=== PATIENT | female | born 1945 | race Caucasian/White ===

== ENCOUNTER → 2017-12-08 12:59 | Outpatient (CLI) | payer MEDICARE, OTHER, SELFPAY ==
--- NOTE | 2017-12-08 13:03 | US_ITS ---
STUDY: THYROID ULTRASOUND REASON FOR EXAM: Female, 72 years old. Enlarged gland. TECHNIQUE: Ultrasound evaluation of the thyroid was performed with real-time and static marvin-scale imaging. COMPARISON: None. FINDINGS: RIGHT LOBE: The right lobe of the thyroid gland measures 4.5 x 1.5 x 1.5 cm. There is a homogeneous echotexture. There is a mildly hypoechoic solid nodule in the upper pole measuring 3 x 2 x 2 mm. LEFT LOBE: The left lobe of the thyroid gland measures 4.2 x 1.4 x 1.3 cm. There is a homogeneous echotexture. There are no demonstrated solid, cystic or complex lesions. ISTHMUS: The isthmus measures 2.0 mm. . The regional lymph nodes are normal. US/Thyroid IMPRESSION: A 3 mm right thyroid nodule. Suggest follow-up exam to assess stability. Otherwise, normal study. Electronically Signed: Delvis Rivera MD at 3:28 EST , Service support ,
--- NOTE | 2017-12-08 13:03 | HPBI_ITS ---
MAMMOGRAPHY - BILATERAL SCREENING REASON FOR EXAM: Female, 72 years old. Routine annual screening examination. PERTINENT HISTORY: Grandmother with breast cancer. TECHNIQUE: Digital bilateral breast criselda (3D mammographic acquisition) in the CC and MLO projections. 2-D mediolateral oblique (MLO) and craniocaudad (CC) views of both breasts were obtained. CAD: Full Field Digital Mammography with Computer Added Detection was performed. COMPARISON: Comparison is made with prior study dated November 19, 2016 and February 01, 2012. FINDINGS: Breast Composition: There are scattered areas of fibroglandular density. There are no dominant masses or suspicious calcifications. Stable benign-appearing bilateral axillary lymph nodes. No other significant abnormalities are identified. There has been no significant change since the prior study. HPBI/SCREENING MAMM (CAD), BILAT IMPRESSION: Stable bilateral screening mammogram. Yearly follow-up mammogram recommended. (A) ASSESSMENT CATEGORY: BIRADS Category 1: Negative. A letter regarding these results will be sent to the patient by the facility within 30 days. Approximately 10% of breast cancers are not detected by mammography. A normal mammogram should not delay biopsy of a clinically suspicious abnormality. [id number] Electronically Signed: Kevin Pugh MD at 14:05 EST Tel [phone], Service support ,
== END ==
PROVIDERS: Family Provider Internal Medicine; PCP Internal Medicine; Visit Provider Internal Medicine
DX: Z12.31 Encounter for screening mammogram for malignant neoplasm of breast (principal); E04.9 Nontoxic goiter, unspecified
CPT/HCPCS: 76536; 77063; 77067

== ENCOUNTER → 2018-09-21 10:40 | Outpatient (CLI) | payer MEDICARE, OTHER, SELFPAY ==
--- NOTE | 2018-09-21 10:47 | CDU_ITS ---
Reason For Study: Carotid stenosis Rt. Velocities/BP Lt. Velocities/BP Prox CCA 85.6/17.6 cm/sec. Prox CCA 87.9/19.9 cm/sec. Mid CCA 97.3/23.5 cm/sec. Mid CCA 89.1/27.0 cm/sec. Dist CCA 78.0/15.8 cm/sec. Dist CCA 89.7/24.0 cm/sec. Prox ICA 77.3/21.8 cm/sec. Prox ICA 77.4/20.0 cm/sec. Mid ICA 70.7/19.6 cm/sec. Mid ICA 112.0/29.9 cm/sec. Dist ICA 88.8/21.2 cm/sec. Dist ICA 97.4/23.6 cm/sec. Rt. ICA/CCA = .91. Lt. ICA/CCA = 1.3. Prox ECA 134.0/14.9 cm/sec. Prox ECA 118.0/15.7 cm/sec. Rt. Vert. 69.1/14.9 cm/sec. Lt. Vert. 48.1/8.2 cm/sec. Right Extracranial There is intimal thickening but no significant atherosclerotic plaque noted in the right common carotid artery. There is heterogeneous, irregular atherosclerotic plaque noted in the right internal carotid artery. There is no significant atherosclerotic plaque noted in the right external carotid artery. Antegrade flow is noted in the right vertebral artery. Left Extracranial There is intimal thickening but no significant atherosclerotic plaque noted in the left common carotid artery. There is heterogeneous, irregular atherosclerotic plaque noted in the left internal carotid artery. There is intimal thickening but no significant atherosclerotic plaque noted in the left external carotid artery. Antegrade flow is noted in the left vertebral artery. Procedure Carotid Duplex [id number]. Exam performed in department. Interpretation Summary Mild (<50%) stenosis right extracranial internal carotid. Mild (<50%) stenosis left extracranial internal carotid. Flow within the vertebral arteries is antegrade bilaterally. Ordering Physician: Monse Silverman Referring Physician: Monse Silverman Performed By: Maria Luisa Waller RVT
--- OUTSIDE RECORDS SUMMARY | 2018-12-23 14:49 | XMS RPT_ITS ---
:1945 Author Organization [facility] Care Team Providers Name Role Phone Fast DO, Monse A Attending Unavailable Fast DO, Monse A Referring Unavailable Fast DO, Monse A Consulting Unavailable Fast, Monse Attending Unavailable Fast, Monse Referring Unavailable Fast, Monse Primary Care Unavailable Fast, Monse Attending Unavailable Fast, Monse Referring Unavailable Fast, Monse Primary Care Unavailable PROBLEMS PROBLEMS DATE TYPE CONDITION / CODE ATTENDING STATUS SOURCE 12/09/2017 Unknown Z12.31 - Fast, Monse Active [place] Encounter for [facility] screening Hospital mammogram for Repository malignant neoplasm of breast / Z12.31(ICD-10) 12/09/2017 Unknown E04.9 - Nontoxic Fast, Monse Active [facility] goiter, Community unspecified / Hospital E04.9(ICD-10) Repository PROCEDURES PROCEDURES No Procedure Records FoundRESULTS RESULTS CAROTID DUPLEX Observed: 10/19/2018 Status: F Source: MOBILE ULTRASOUND 11:51 AM [facility] REPOSITORY [facility] Cardiovascular Services [address] [place] [address] Carotid Duplex Ultrasound 09/21/18 1051 MR#: [id number] Acct: [id number] Name: MIKE CHAVEZ Rep #: [id number] : 1945 72 From: Denilson Warren MD Attending Dr: Monse Silverman DO Status: REG CLI Ordering Dr: Monse Silverman DO Date: 09/21/18 Location: [facility] Sex: F C Admitted: Reason For Study: Carotid stenosis Rt. Velocities/BP Lt. Velocities/BP Prox CCA 85.6/17.6 cm/sec. Prox CCA 87.9/19.9 cm/sec. Mid CCA 97.3/23.5 cm/sec. Mid CCA 89.1/27.0 cm/sec. Dist CCA 78.0/15.8 cm/sec. Dist CCA 89.7/24.0 cm/sec. Prox ICA 77.3/21.8 cm/sec. Prox ICA 77.4/20.0 cm/sec. Mid ICA 70.7/19.6 cm/sec. Mid ICA 112.0/29.9 cm/sec. Dist ICA 88.8/21.2 cm/sec. Dist ICA 97.4/23.6 cm/sec. Rt. ICA/CCA = .91. Lt. ICA/CCA = 1.3. Prox ECA 134.0/14.9 cm/sec. Prox ECA 118.0/15.7 cm/sec. Rt. Vert. 69.1/14.9 cm/sec. Lt. Vert. 48.1/8.2 cm/sec. Right Extracranial There is intimal thickening but no significant atherosclerotic plaque noted in the right common carotid artery. There is heterogeneous, irregular atherosclerotic plaque noted in the right internal carotid artery. There is no significant atherosclerotic plaque noted in the right external carotid artery. Antegrade flow is noted in the right vertebral artery. Left Extracranial There is intimal thickening but no significant atherosclerotic plaque noted in the left common carotid artery. There is heterogeneous, irregular atherosclerotic plaque noted in the left internal carotid artery. There is intimal thickening but no significant atherosclerotic plaque noted in the left external carotid artery. Antegrade flow is noted in the left vertebral artery. Procedure Carotid Duplex [id number]. Exam performed in department. Interpretation Summary Mild (<50%) stenosis right extracranial internal carotid. Mild (<50%) stenosis left extracranial internal carotid. Flow within the vertebral arteries is antegrade bilaterally. Ordering Physician: Monse Silverman Referring Physician: Monse Silverman Performed By: Maria Luisa Waller RVT 10/19/18 1150 Date Denilson Warren MD CC: Monse Silverman DO Date Dictated: 09/21/18 1051 Date Transcribed: 10/19/18 1150 Human Resources Analyst: Signed SCREENING MAMM (CAD), Observed: 12/08/2017 Status: F Source: MOBILE BIL 1:04 PM [facility] REPOSITORY [facility] Imaging Services [address] [place] [id number] SCREENING MAMM (CAD), BILAT MR#: [id number] Acct: [id number] Name: CHAVEZ,KAY Elia Rep #: [id number] : 1945 F 72 From: Kevin Pugh MD PCP: Monse Silverman DO Status: REG CLI Study: SCREENING MAMM (CAD), BILAT Date of Exam: 12/08/17 Exam# [id number] Ordering Dr: Monse Silverman DO MAMMOGRAPHY - BILATERAL SCREENING REASON FOR EXAM: Female, 72 years old. Routine annual screening examination. PERTINENT HISTORY: Grandmother with breast cancer. TECHNIQUE: Digital bilateral breast criselda (3D mammographic acquisition) in the CC and MLO projections. 2-D mediolateral oblique (MLO) and craniocaudad (CC) views of both breasts were obtained. CAD: Full Field Digital Mammography with Computer Added Detection was performed. COMPARISON: Comparison is made with prior study dated November 19, 2016 and February 01, 2012. FINDINGS: Breast Composition: There are scattered areas of fibroglandular density. There are no dominant masses or suspicious calcifications. Stable benign-appearing bilateral axillary lymph nodes. No other significant abnormalities are identified. There has been no significant change since the prior study. HPBI/SCREENING MAMM (CAD), BILAT IMPRESSION: Stable bilateral screening mammogram. Yearly follow-up mammogram recommended. (A) ASSESSMENT CATEGORY: BIRADS Category 1: Negative. A letter regarding these results will be sent to the patient by the facility within 30 days. Approximately 10% of breast cancers are not detected by mammography. A normal mammogram should not delay biopsy of a clinically suspicious abnormality. [id number] Electronically Signed: Kevin Pugh MD at 14:05 EST Tel [phone], Service support , CC: Monse Silverman DO Human Resources Analyst: Signed THYROID Observed: 12/08/2017 Status: F Source: MOBILE 1:04 PM [facility] REPOSITORY [facility] Imaging Services [address] [place], [place] [id number] Thyroid MR#: [id number] Acct: [id number] Name: MIKE CHAVEZ Rep #: [id number] : 1945 F 72 From: Delvis Rivera MD PCP: Monse Silverman DO Status: REG CLI Study: Thyroid Date of Exam: 12/08/17 Exam# [id number] Ordering Dr: Monse Silverman DO STUDY: THYROID ULTRASOUND REASON FOR EXAM: Female, 72 years old. Enlarged gland. TECHNIQUE: Ultrasound evaluation of the thyroid was performed with real-time and static marvin-scale imaging. COMPARISON: None. FINDINGS: RIGHT LOBE: The right lobe of the thyroid gland measures 4.5 x 1.5 x 1.5 cm. There is a homogeneous echotexture. There is a mildly hypoechoic solid nodule in the upper pole measuring 3 x 2 x 2 mm. LEFT LOBE: The left lobe of the thyroid gland measures 4.2 x 1.4 x 1.3 cm. There is a homogeneous echotexture. There are no demonstrated solid, cystic or complex lesions. ISTHMUS: The isthmus measures 2.0 mm. . The regional lymph nodes are normal. US/Thyroid IMPRESSION: A 3 mm right thyroid nodule. Suggest follow-up exam to assess stability. Otherwise, normal study. Electronically Signed: Delvis Rivera MD at 3:28 EST , Service support , CC: Monse Silverman DO Human Resources Analyst: Signed ALLERGIES ALLERGIES No Allergies Records FoundENCOUNTERS ENCOUNTERS ADMIT/DISCHARGE ACCOUNT ADMITTING ENCOUNTER LOCATION SOURCE NUMBER CLASS 09/21/2018 [id number] Ambulatory [place] Tony 0 [facility] ing:[facility] Repository 09/13/2018 [id number] Ambulatory Building:[facility] [place] Practices Repository 12/08/2017 [id number] Ambulatory [place] 5 [facility] ing:BI Repository PAYERS PAYERS ENCOUNTER GUARANTOR PAYER SUBSCRIBER SOURCE 09/21/2018 GORDY Gordon Primary MIKE R Tony [id number] Insurance:HUMANA MCFADDENDOB: Community [place] MEDICARE PPOPolicy [id number] Hospital WAYUnit Number: Repository [address], [place] [id number] [id number]: (330) Date:7734-75-73JV [phone] () [address], [place] [address]XF: 09/21/2018 Secondary GORDY Hillman Insurance:[facility] MCFADDENDOB: [facility] [id number] Hospital Number: Repository [id number] Date:1586-57-74[address], [place] [address]QG: 09/21/2018 Tertiary NOT GIVENUNK Tony Insurance:SELF PAY [facility] Number: Effective Repository Date:2018-09-13 09/13/2018 MIKE R Primary MIKE R [facility] Practices MCFADDENDOB: Insurance:Hum//Medicar MCFADDENDOB: Repository [id number] e Adv PlanPoly [id number] [place] Number: 2 [facility] [id number] [address], [place] Date:6698-14-80Lzub [place], [place] [address]Oho: ([phone]) Name:[address] [address]Xpr: [address] [place] [address] [phone] (HP) (HP)Tel: [phone]: ([phone] 09/13/2018 Secondary Gordy W [facility]IP Practices Insurance:United McFaddenDOB: Repository [facility] [id number] Number: 2 [place] [id number] [address] [place] Date:7330-28-65Ytut [address]Ehn: ([phone]) Name:[facility] [address] [address]Vtog [phone] (HP) [place], [place] [address]TZ: 12/08/2017 Gordy Gordon Primary MIKE R [place] [id number] Insurance:HUMANA MCFADDENDOB: Community [place] MEDICARE PPOPolicy [id number] Number: [place]ository [address] [id number] [id number]: (330) Date:1958-93-31[phone] (HP) [address] [place] [place] [address]KE: 12/08/2017 Secondary Gordy W Tony Insurance:[facility] McfaddenDOB: Community CARE [address] [place] [address] [id number] Hospital Number: Repository [id number] Date:8101-81-80[address], [place] [address]DQ: 12/08/2017 Tertiary NOT GIVENUNK Tony Insurance:SELF PAY [facility] Number: Effective Repository Date:2017-11-17
--- OUTSIDE RECORDS SUMMARY | 2018-12-23 14:49 | XMS RPT_ITS | Continuity of Care Document ---
:1945 Author Organization [facility] Address [facility] [address] [place] [address] Phone Care Team Providers Name Role Phone Monse Silverman DO Unavailable Mayra GUADALUPE, Dean Lowery Unavailable Mervin Francisco Unavailable Natty Mayen Unavailable Unavailable Liane Zhou Unavailable Unavailable Chloe Dobson Unavailable Unavailable Unavailable Unavailable Problems Name Dates Details Abnormal blood chemistry (R79.9, 790.6) Status: Active Abnormal cardiac function test (R94.30, 794.30) Comments: Elevated d-dimer Status: Active abnormal ct of chest Status: Active Abnormal EKG (Renamed from Abnormal electrocardiogram) (R94.31, 794.31) Status: Active Anxiety (F41.9, 300.00) Status: Active Bilateral carotid bruits (R09.89, 785.9) Status: Active BMI 29.0-29.9,adult (Z68.29, V85.25) Status: Active Calcific tendinitis of left shoulder (M75.32, 726.11) Status: Active Carotid stenosis, bilateral (I65.23, 433.10) Status: Active Deliveries (Parity) Comments: 3. Status: Active Dysuria (R30.0, 788.1) Status: Active EMBOLISM/INFARCTION, 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) Status: Active Encounter for hepatitis C virus screening test for high risk patient (Z11.59, V73.89) Status: Active Encounter for hepatitis C virus screening test for high risk patient (Z11.59, V73.89) Status: Active Encounter for screening mammogram for breast cancer (Renamed from Encounter for screening mammogram for malignant neoplasm of breast) (Z12.31, V76.12) Status: Active Encounter for screening mammogram for breast cancer (Renamed from Encounter for screening mammogram for malignant neoplasm of breast) (Z12.31, V76.12) Status: Active Encounter for screening mammogram for breast cancer (Renamed from Encounter for screening mammogram for malignant neoplasm of breast) (Z12.31, V76.12) Status: Active Encounter for screening mammogram for breast cancer (Renamed from Encounter for screening mammogram for malignant neoplasm of breast) (Z12.31, V76.12) Status: Active Enlarged thyroid gland (E04.9, 240.9) Comments: right lobe Status: Active Family history of cancer of the kidney (Z80.51, V16.51) Status: Active Fatty liver (K76.0, 571.8) Status: Active Gastroesophageal reflux disease without esophagitis (K21.9, 530.81) Comments: not having weekly watch caffeine- she using rolaids ok cut caffeine Status: Active Hematuria (R31.9, 599.70) Comments: trace getting culture Status: Active Hypertension, benign (I10, 401.1) Status: Active Impaired Fasting Glucose (R73.01, 790.21) Comments: well controlled Status: Active Lower urinary tract infection (N39.0, 599.0) Comments: beta strep was treated based on culture while in [facility] today culture and call if positive Status: Active [facility] EXAM Status: Active [facility] Physical Status: Active Mixed hyperlipidemia (E78.2, 272.2) Status: Active Need for prophylactic vaccination and inoculation against influenza (Z23, V04.81) Status: Active Need for prophylactic vaccination and inoculation against influenza (Z23, V04.81) Status: Active Need for prophylactic vaccination and inoculation against influenza (Renamed from Need for immunization against influenza) (Z23, V04.81) Status: Active Nonsmoker (Z78.9, V49.89) Status: Active Nonsmoker (Z78.9, V49.89) Status: Active Osteopenia (M85.80, 733.90) Comments: walk walk walk Status: Active Other abnormal finding of urine (R82.99, 791.9) Status: Active Other symptoms involving cardiovascular system (R09.89, 785.9) Comments: right - getting blood flow screening done Status: Active Postmenopausal (Renamed from Postmenopausal status) (Z78.0, V49.81) Status: Active Postmenopausal (Renamed from Post-menopausal) (Z78.0, V49.81) Status: Active Pregnancies () Comments: 3. Status: Active screening Status: Active screening Status: Active screening Status: Active screening Status: Active Shoulder pain (M25.519, 719.41) Comments: montior Status: Active Sinus bradycardia (R00.1, 427.89) Comments: better Status: Active Sleep disorder (G47.9, 307.40) Comments: encourage exercise only 7.5 melatonin Status: Active Supraclavicular fossa fullness (R22.2, 786.6) Status: Active Thyroid nodule (E04.1, 241.0) Comments: recheck yearly thyroid us 12/20 Status: Active Urinary frequency (R35.0, 788.41) Status: Active UTI (urinary tract infection) (N39.0, 599.0) Status: Active Vitamin D deficiency (E55.9, 268.9) Comments: chronic stable-continue present regimen Status: Active Vitamin D deficiency (E55.9, 268.9) Comments: compliance with taking vit d Status: Active Medications Name Dates Details ASPIRIN LOW DOSE, 81MG (Oral Tablet) Active 1 tab daily (81 MG) Calcium Citrate 200 MG Oral Tablet Active qd (200 MG) Losartan Potassium 50 MG Oral Tablet 1 (one) Tablet daily for 90 days Quantity: 90 {Tablet} Refills: 3 Ordered:06-May-2018 Anahi Ludwig DO Start : 06-May-2018 Active Comments:will monitor bp x 1 week appx Magnesium 250 MG Oral Tablet bid (250 MG) Active Simvastatin 40 MG Oral Tablet 1 Tablet qhs for 0 days Quantity: 90 {Tablet} Refills: 2 Ordered:16-May-2018 Natty Mayen Start : 16-May-2018 Active Vitamin D3 5000 UNIT Oral Tablet 1 Capsule daily for 30 days Quantity: 4 {Capsule} Refills: 3 Ordered:24-Jul-2013 Chloe Dobson Start : 07-Jun-2013 Active Augmentin 875-125 MG Oral Tablet 1 Tablet bid for 10 days Quantity: 20 {Tablet} Refills: 0 Ordered:17-Jul-2016 Herrera DO, Monse AFast DO, Monse A Start : 17-Jul-2016 End : 27-Jul-2016 Inactive Cipro 500 MG Oral Tablet 1 Tablet bid for 10 days Quantity: 20 {Tablet} Refills: 0 Ordered:03-Nov-2016 Natty Mayen Start : 03-Nov-2016 End : 13-Nov-2016 Inactive COUMADIN, 4MG (Oral Tablet) 1 (one) Tablet qd for 0 days Quantity: 60 {Tablet} Refills: 3 Ordered:31-May-2013 Natty Mayen Start : 11-Jan-2013 End : 31-May-2013 Inactive LANSOPRAZOLE, 15MG (Oral Capsule Delayed Release) 1 cap qd (15 MG) Inactive Melatonin 200 MCG Oral Tablet qd (200 MCG) Inactive PRAVASTATIN SODIUM, 80MG (Oral Tablet) 1 tab q hs for 0 days Refills: 0 Ordered:31-May-2013 Natty Mayen Start : 05-Apr-2012 End : 31-May-2013 Inactive PREDNISONE, 10MG (Oral Tablet) 1 Tablet 3 pills for 3 days 2 pills for 3 days 1 pill for 3 dayw tih food in am for 0 days Refills: 0 Ordered:05-Apr-2012 Chloe Dobson Start : 15-Feb-2012 End : 05-Apr-2012 Inactive TRAZODONE HCL, 50MG (Oral Tablet) 1 (one) Tablet q hs, prn for 0 days Quantity: 90 {Tablet} Refills: 1 Ordered:31-May-2013 Natty Mayen Start : 04-Jul-2012 End : 31-May-2013 Inactive TRICOR, 145MG (Oral Tablet) 1 tab qd for 0 days Refills: 0 Ordered:31-May-2013 Natty Mayen Start : 05-Apr-2012 End : 31-May-2013 Inactive WARFARIN SODIUM, 2MG (Oral Tablet) 1 (one) Tablet qd, TAD for 0 days Quantity: 90 {Tablet} Refills: 3 Ordered:31-May-2013 Natty Mayen Start : 11-Jan-2013 End : 31-May-2013 Inactive ZITHROMAX, 250MG (Oral Tablet) 2 (two) Tablet pills today then 1 pill qd for 13 days for 0 days Refills: 0 Ordered:05-Apr-2012 Chloe Dobson Start : 15-Feb-2012 End : 05-Apr-2012 Inactive ZOSTAVAX, 13453GFH/0.65ML (Subcutaneous Solution Reconstituted) 1 (one) For Solution one time dose for 0 days Quantity: 1 {For_Solution} Refills: 0 Ordered:05-Apr-2012 Chloe Dobson Start : 15-Feb-2012 End : 05-Apr-2012 Inactive Atenolol 25 MG Oral Tablet 1 tab Tablet qd for 0 days Quantity: 90 {Tablet} Refills: 3 Ordered:15-Nov-2017 Monse Silverman DO, DO, Debra A Start : 15-Nov-2017 End : 15-Nov-2017 Discontinued Atorvastatin Calcium 10 MG Oral Tablet 1 (one) Tablet qeve for 0 days Quantity: 30 {Tablet} Refills: 3 Ordered:22-Mar-2017 Monse Silverman DO, DO, Debra A Start : 22-Mar-2017 End : 22-Mar-2017 Discontinued Allergies and Adverse Reactions Name Dates Details Father (Allergy) Status: Inactive Comments: father living and has hx of afib and copd- smoker chronic kidney disease- abd aortic aneuryusm- repair- she was checked and ok- age 89- accieent with car and then pneumonia No Known Allergies (Allergy) Onset: 04-Sep-2014 Status: Inactive No Known Drug Allergies (Allergy) Onset: 20-Jan-2016 Status: Active Past Medical History Name Dates Details BMI 27.0-27.9,adult (Z68.27, V85.23) Status: Inactive as of 25-Apr-2018 Chest pain (R07.9, 786.59) Status: Resolved as of 12-Jul-2012 Encounter for immunization (Z23, V03.89) Status: Inactive as of 12-Jul-2012 Unspecified bacterial pneumonia (J15.9, 482.9) Status: Resolved as of 12-Jul-2012 Procedures Procedure Dates Details Colonoscopy, Screening Completed Comments: 09-24-14 Dr. Lemos normal repeat 10 years None Completed Date Value Details 08-Dec-2017 SCREENING MAMM (CAD), BILAT Result: Comments: See Note; NOTES: [facility] Imaging Services [address] [place] [address] SCREENING MAMM (CAD), BILAT MR#: [id number] Acct: [id number] Name: MIKE CHAVEZ Rep #: [id number] : 1945 F 72 From: Kevin Pugh MD PCP: Monse Silverman DO Status: REG CLI Study: SCREENING MAMM (CAD), BILAT Date of Exam: 12/08/17 Exam# [id number] Ordering Dr: Monse Silverman DO MAMM OGRAPHY - BILATERAL SCREENING REASON FOR EXAM: Female, 72 years old. Routine annual screening examination. PERTINENT HISTORY: Grandmother with breast cancer. TECHNIQUE: Digital bilateral breast criselda (3D mammographic acquisition) in the CC and MLO projections. 2-D mediolateral oblique (MLO) and craniocaudad (CC) views of both breasts were obtained. CAD: Full Field Digital Mammography with Computer A dded Detection was performed. COMPARISON: Comparison is made with prior study dated November 19, 2016 and February 01, 2012. FINDINGS: Breast Composition: There are sc attered areas of fibroglandular density. There are no dominant masses or suspicious calcifications. Stable benign-appearing bilateral axillary lymph nodes. No other significant abnormalities are ident ified. There has been no significant change since the prior study. HPBI/SCREENING MAMM (CAD), BILAT IMPRESSION: Stable bilateral screening mammog destiny. Yearly follow-up mammogram recommended. (A) ASSESSMENT CATEGORY: BIRADS Category 1: Negative. A letter regarding these results will be sent to the patient by [facility] facility within 30 days. Approximately 10% of breast cancers are not detected by mammography. A normal mammogram should not delay biopsy of a clinically suspicious abnormality. [id number] Electronical ly Signed: Kevin Pugh MD at 14:05 EST Tel [phone], Service support , CC: Monse Silverman DO Senior Hr Manager: Signed 08-Dec-2017 Thyroid Result: Comments: See Note; NOTES: [facility] Imaging Services [address] [place] [address] Thyroid MR#: [id number] Acct: [id number] Name: MIKE CHAVEZ Rep #: [id number] : 1945 F 72 From: Delvis Rivera MD PCP: Monse Silverman DO Status: REG CLI Study: Thyroid Date of Exam: 12/08/17 Exam# [id number] Ordering Dr: Monse Silverman DO STUDY: THYROID ULTRASOUND REASON FOR EXAM: Fe male, 72 years old. Enlarged gland. TECHNIQUE: Ultrasound evaluation of the thyroid was performed with real-time and static marvin-scale imaging. COMPARISON: None. F INDINGS: RIGHT LOBE: The right lobe of the [...] cystic or complex lesions. ISTHMUS: The isthmus grant sures 2.0 mm. . The regional lymph nodes are normal. US/Thyroid IMPRESSION: A 3 mm right thyroid nodule. Suggest follow-up exam to assess stabi lity. Otherwise, normal study. Electronically Signed: Delvis Rivera MD at 3:28 EST , Service support , CC: Monse Silverman DO Senior Hr Manager: Signed 07-Apr-2017 Carotid Duplex Ultrasound Result: Comments: See Note; NOTES: [facility] Cardiovascular Services [address] [place] [address] Carotid Duplex Ultrasound 04/01/17 1047 MR#: [id number] Acct: [id number] Name: MIKE YING Rep #: [id number] : 1945 71 From: Denilson Warren MD Attending Dr: Monse Silverman DO Status: REG CLI Ordering Dr: Monse Silverman DO Date: 04/01/17 Location: US Sex: F C Admitted: Reason For Study: Carotid bruit Rt. Velocities/BP Lt. Velocities/BP Prox CCA 89.7/19.9 cm/sec. Prox CCA 95.6/24.6 cm/sec. Mid CCA 93.8/19.3 cm/sec. Mid CCA 101.0/25.2 cm/sec. Dist CCA 86.8/21.1 cm/sec. Dist C CA 88.5/27.6 cm/sec. Prox ICA 81.5/21.7 cm/sec. Prox ICA 85.2/23.5 cm/sec. Mid ICA 76.2/21.7 cm/sec. Mid ICA 91.6/26.7 cm/sec. Dist ICA 97.9/24.0 cm/sec. Dist ICA 103.0/27.7 cm/sec. Rt. ICA/CCA = 1.0. L t. ICA/CCA = 1.0. Prox ECA 92.0/10.0 cm/sec. Prox ECA 107.0/16.4 cm/sec. Rt. Vert. 66.8/14.1 cm/sec. Lt. Vert. 91.9/24.4 cm/sec. Right Extracranial There is homogeneous, smooth atherosclerotic plaque n oted in the right common carotid artery. There is heterogeneous, smooth atherosclerotic plaque noted in the right internal carotid artery. There is no significant atherosclerotic plaque noted in the rig ht external carotid artery. Antegrade flow is noted in the right vertebral artery. Left Extracranial There is homogeneous, smooth atherosclerotic plaque noted in the left common carotid artery. There i s homogeneous, smooth atherosclerotic plaque noted in the left internal carotid artery. There is heterogeneous, irregular atherosclerotic plaque noted in the left external carotid artery. Antegrade flow is noted in the left vertebral artery. Procedure Carotid Duplex [id number]. Exam performed in department. Interpretation Summary Mild (<50%) stenosis right extracranial internal carotid. Mild (&am p;#60;50%) stenosis left extracranial internal carotid. Flow within the vertebral arteries is antegrade bilaterally. __ Ordering Physician: Monse Silverman Performed By: Maria Luisa Waller RVT 04/07/17 0800 Date Denilson Warren MD CC: Monse Silverman DO Date Dictated: 04/01/17 1047 Date Transcribed: 04/07/17 0800 Senior Hr Manager: Signed 01-Apr-2017 Liver Result: Comments: See Note; NOTES: [facility] Imaging Services [address] [place] [address] Verdana 4d Liver MR#: [id number] Acct: [id number] Name: MIKE CHAVEZ Rep #: [id number] DO B: 1945 F 71 From: Kevin Pugh MD PCP: Monse Silverman DO Status: REG CLI Study: Liver Date of Exam: 04/01/17 Exam# [id number] Ordering Dr: Monse Silverman DO STUDY: ABDOMINAL ULTRASOUND - RIGHT U PPER QUADRANT REASON FOR VISIT: Female, 71 years old. Fatty infiltration of the liver. TECHNIQUE: Ultrasound evaluation of the right upper quadrant was performed with real-time and static marvin-scale i luis a. TECHNICAL QUALITY: Adequate. COMPARISON: Comparison is made with prior study dated January 24, 2016. FINDINGS: Liver: The liver measures 13.5 cm. There is i ncreased echogenicity consistent with fatty infiltration. The bile ducts are within normal limits. There is hepatic color flow. The direction of portal flow is hepatopetal. 9 mm x 6 mm x 8 mm cyst in th e right lobe of the liver. This is essentially unchanged. Gallbladder: Normal distended gallbladder. The gallbladder wall measures 2.0 mm. There is a negative sonographic Jennings's sign. There is no per icholecystic fluid. There are no gallstones. Common Bile Duct (C.B.D.): The common bile duct measures 2.8 mm. Pancreas: Normal size of the head, body and tail of the pancreas. There is normal echogeni city of the pancreas. There is no demonstrated pancreatic mass or cyst. Right Kidney: Normal size of the right kidney. The right kidney measures 9.3 cm x 4.1 cm x 4.4 cm. Normal renal cortex. The right cortex measures 1.3 cm. There is no demonstrated renal mass or cyst. There is no right hydronephrosis. 0010 US/Liver IMPRESSION: Fatty insertion of l iver. Stable cyst in the dome of the right lobe of the liver. Electronically Signed: Kevin Pugh MD at 14:19 EDT Tel [phone], Service support , CC: Monse Silverman DO Senior Hr Manager: Signed 19-Nov-2016 Dexa Bone Density Study () Result: Comments: See Note; NOTES: [facility] Imaging Services [address] [place] [address] Verdana 4d Dexa Bone Density Study () MR#: [id number] Acct: [id number] Name: DANIEL CHAVEZ Rep #: [id number] : 1945 F 71 From: Kevin Pugh MD PCP: Monse Silverman DO Status: REG CLI Study: Dexa Bone Density Study (HP) Date of Exam: 11/19/16 Exam# [id number] Ordering Dr: Nixon DO STUDY: DUAL ENERGY X-RAY ABSORPTIOMETRY / DXA REASON FOR EXAM: Female, 71 years old. The patient is postmenopausal. TECHNIQUE: Bone Mineral Density (BMD) measurements of lumbar spine and bila teral hips were obtained. COMPARISON: None. FINDINGS: Lumbar Spine (L1-L4): g/cm2 (0.942) / T-score (-1.9) / Z-score (- 0.2) Findings are suggestive of osteopenia w ith a moderate fracture risk. Left Femur Total: g/cm2 (0.930) / T-score (-0.6) / Z-score (0.8) Left Femoral Neck: g/cm2 (0.953) / T-score (-0.6) / Z-score (1.1) Right Femur Total: g/cm2 (0.945) / T-sco re (-0.5) / Z-score (1.0) Right Femoral Neck: g/cm2 (0.946) / T-score (-0.7) / Z-score (1.0) HPBD/Dexa Bone Density Study (HP) IMPRESSION: The p atient is considered osteopenic at the level of the lumbar spine as outlined below according to World Kev Organization (WHO) criteria with a moderate fracture risk. Reference Information: The T-score is the number of standard deviations above or below the standard which is normal for young adults at their peak bone mineral density. The World Health Organization ( WHO) interprets the T-scores as follows: Above -1 Normal bone density Between -1 and -2.5 Osteopenia Equal to / or below -2.5 Osteoporosis As a practical clinical guideline, osteopenia may be graded a s follows: Mild -1 through -1.5 Moderate -1.6 through -2.0 Severe -2.1 through -2.4 The Z-score is the number of standard deviations above or below age- matched controls. A Z-score of less than -1.5 wou ld be considered abnormal. References: 1. NIH Osteoporosis and Related Bone Diseases http://www.osteo.org 2. International Society for Clinical Densitometry http://www.iscd.org 3. National Osteoporosis Foundation http://www.nof.org Electronically Signed: Kevin Pugh MD at 13:30 EST Tel [phone], Service support [phone], CC: Monse Silverman DO Senior Hr Manager: Signed 19-Nov-2016 SCREENING MAMM (CAD), BILAT Result: Comments: See Note; NOTES: [facility] Imaging Services [address] [place] [address] Verdana 4d SCREENING MAMM (CAD), BILAT MR#: [id number] Acct: [id number] Name: MIKE CHAVEZ Rep #: [id number] : 1945 F 71 From: Kvein Pugh MD PCP: Monse Silverman DO Status: REG CLI Study: SCREENING MAMM (CAD), BILAT Date of Exam: 11/19/16 Exam# [id number] Ordering Dr: Gilda Silverman DO MAMMOGRAPHY - BILATERAL SCREENING REASON FOR EXAM: Female, 71 years old. Routine annual screening examination. PERTINENT HISTORY: Grandmother with breast cancer. TECHNIQUE: Digital bilateral b reast criselda (3D mammographic acquisition) in the CC and MLO projections. 2-D mediolateral oblique (MLO) and craniocaudad (CC) views of both breasts were obtained. CAD: Full Field Digital Mammography with Computer Added Detection was performed. COMPARISON: Comparison is made with prior outside examination dated February 01, 2012. FINDINGS: Breast Composition: There are scattered areas of fibroglandular density. There are no dominant masses or suspicious calcifications. No other significant abnormalities are identified. There has been no significant change since the prior study. HPBI/SCREENING MAMM (CAD), BILAT IMPRESSION: Stable bilateral screening mammogram. Yearly follow-up mammogram recommended. (A) ___ ASSESSMENT CATEGORY: BIRADS Category 1: Negative. A letter regarding these results will be sent to the patient by the facility within 30 days. Approximately 10% of [place] ast cancers are not detected by mammography. A normal mammogram should not delay biopsy of a clinically suspicious abnormality. [id number] Electronically Signed: Kevin Pugh MD at 15:45 EST Tel [phone], Service support [phone], CC: Monse Silverman DO Senior Hr Manager: Signed 04-Mar-2016 Nuclear Stress Test - Chemical Result: Comments: See Note; NOTES: [facility] Imaging Services [address] [place] [address] Verdana 4d Nuclear Stress Test - Chemical MR#: [id number] Acct: [id number] N leticia: MIKE CHAVEZ Rep #: [id number] : 1945 70 From: Isauro Metcalf MD Primary Care: Monse Silverman DO Status: REG CLI Ordering Dr: Monse Silverman DO Sex: F C DATE OF SERVICE: PHARMACOLOGIC MY OCARDIAL PERFUSION STRESS TEST: A 70-year-old lady with a history of abnormal EKG. MEDICATIONS: Atenolol, simvastatin, aspirin, lansoprazole. Resting EKG demonstrates sinus rhythm with a rate of 60 beats per minute. Normal intervals are noted. Resting blood pressure was 142/70. STRESS TEST: 0.4 mg of regadenoson was infused per usual protocol followed by rapid intravenous saline flush inje ction. Continuous EKG monitoring was performed. The maximum heart rate attained was 78 beats per minute, which was 51% of maximum predicted heart rate. The maximum workload attained was 1 MET. At rest , there were no ST or T-wave changes noted to suggest abnormal flow reserve. At peak infusion, no ST or T-wave changes were noted to suggest abnormal flow reserve. No areas of reversibility are noted to suggest ischemia. MYOCARDIAL PERFUSION PROTOCOL: 11.5 mCi of sestamibi was injected at rest. 0.4 mg of regadenoson was infused per usual protocol. At peak infusion, 32.8 mCi of sestamibi was inje cted. Stress images were obtained. Stress and rest images were reconstructed and compared in the short axis, vertical long and horizontal long axes. Gated images were also obtained. PERFUSION SPECT ANALYSIS: Review of the images demonstrated normal uptake of tracer noted in all areas of the myocardium. The resting images similarly demonstrated normal uptake of tracer noted in all areas of the m yocardium. No areas of reversibility are noted to suggest ischemia. GATED SPECT ANALYSIS: The gated ejection fraction is noted to be 73%. CONCLUSION: 1. Normal pharmacologic myocardial perfusion s tress test. 2. Preserved ejection fraction. Isauro Metcalf MD T: NTS JOB: [id number] 03/08/16 0826 <Electronically signed by Isauro Metcalf MD> Date Isauro Metcalf MD CC: Monse Silverman DO Date Dictated: 03/04/161655 Date Transcribed: 03/04/161655 Senior Hr Manager: Signed 26-Feb-2016 Chest WITH Contrast Result: Comments: See Note; NOTES: [facility] Imaging Services [address] [place] [address] Verdana 4d Chest WITH Contrast MR#: [id number] Acct: [id number] Name: MIKE MORALES Rep #: [id number] : 1945 F 70 From: Delvis Rivera MD PCP: Monse Silverman DO Status: REG CLI Study: Chest WITH Contrast Date of Exam: 02/26/16 Exam# [id number] Ordering Dr: Monse Silverman DO STUDY: CT CHEST WITH CONTRAST REASON FOR EXAM: Female, 70 years old. Left supraclavicular fullness. History of pulmonary emboli. RADIATION DOSAGE (If Supplied By Facility): CTDIvol = ( 11.5 6 ) mGy, DLP = ( 515.16 ) mGycm TECHNIQUE: Transaxial imaging was performed following intravenous administration of 100ml ml of Isovue 300 contrast material. A metallic BB was placed over the area of left supraclavicular fullness. Individualized dose optimization techniques were used for this CT. COMPARISON: 02/16/12. FINDINGS: No mass or lymphadenopathy is identified in the left supraclavicular region. There are fibrotic and atelectatic changes in the lung apices, stable in appearance. There is also very mild atelectasis in the posterior lungs. T here are no confluent pulmonary infiltrates or pulmonary masses. There is no demonstrated pleural abnormality. Normal heart and pericardium. There are multiple small lymph nodes within the mediasti num, which are normal in size and morphology, and not significantly different from the 2004 exam Normal hilar regions. Normal enhanced pulmonary arteries. There is mild atherosclerotic calcification of the thoracic aorta and great vessels. There is no evidence of a There are multi-level degenerative changes of the thoracic spine. There is a small cyst in the right lobe of liver, stable in size . There is a small hiatal hernia. IMPRESSION: Mild chronic changes in the lung apices, stable in appearance. Mild atherosclerosis. No evidence for acute cardio pulmonary pathology. No demonstrated masses or lymphadenopathy in the chest. No demonstrated mass or lymphadenopathy in the left supraclavicular region. Small hiatal hernia. Electronically Signed: Delvis Rivera MD at 3:46 EDT , Service support [phone], CC: Monse Silverman DO Senior Hr Manager: Signed 06-Feb-2016 Chest PA and Lateral Result: Comments: See Note; NOTES: [facility] [place] [address] Verdana 4d Chest PA and Lateral MR#: [id number] Acct: [id number] Name: MIKE CURTIS Rep #: [id number] : 1945 F 70 From: David Mak MD PCP: Monse Silverman DO Status: REG CLI Study: Chest PA and Lateral Date of Exam: 02/06/16 Exam# [id number] Ordering Dr: Gilda Silverman DO STUDY: X-RAY CHEST REASON FOR EXAM: Female, 70 years old. Right upper chest and clavicular pain. TECHNIQUE: Frontal and lateral views of the chest. COMPARISON: 02/15/12. FINDINGS: The lungs are clear and expanded. There is no demonstrated pleural abnormality. Normal size heart. Normal mediastinum and austin. Normal visualized pulmonary arteries . Normal visualized aortic arch and descending thoracic aorta. Normal visualized thoracic spine. Normal visualized ribs, clavicles, and shoulders. There is no demonstrated abnormality of the visua lized soft tissue structures of the upper abdomen. IMPRESSION: No acute cardiopulmonary disease. Stable examination. Electronically Signed: Annia Myers at 16:07 EDT , Service support [phone], RAD/Chest PA and Lateral IMPRESSION: No acute cardiopulmonary disease. Stable examin ation. Electronically Signed: David Mak MD at 16:07 EDT , Service support [phone], CC: Monse Silverman DO Senior Hr Manager: Signed 24-Jan-2016 Shoulder min 2 Views Result: Comments: See Note; NOTES: [facility] Imaging Services [address] [place] [address] Verdana 4d Shoulder min 2 Views MR#: [id number] Acct: [id number] Name: MIKE CURTIS Rep #: [id number] : 1945 F 70 From: Kevin Pugh MD PCP: Monse Silverman DO Status: REG CLI Study: Shoulder min 2 Views Date of Exam: 01/24/16 Exam# [id number] Ordering Dr: Katherin Silverman DO STUDY: X-RAY - LEFT SHOULDER REASON FOR EXAM: Female, 70 years old. Pain. No history of trauma. TECHNIQUE: view(s) of the shoulder. COMPARISON: None. __ FINDINGS: Normal glenohumeral articulation. Normal acromioclavicular joint. Normal acromion. Normal humeral head and visualized proximal humerus. There is periarticular soft tissue calcificat ion consistent with a calcific tendinitis. Normal visualized pulmonary apex. IMPRESSION: Findings suggestive of calcific tendinitis. Electronically Signed: Kevin Pugh MD at 10:59 EDT Tel [phone], Service support [phone], RAD/Shoulder min 2 Views IMPRESSION: Findings suggestive of calci fic tendinitis. Electronically Signed: Kevin Pugh MD at 10:59 EDT Tel [phone], Service support [phone], CC: Monse Silverman DO Senior Hr Manager: Signed 24-Jan-2016 Liver Result: Comments: See Note; NOTES: [facility] Imaging Services [address] [place] [address] Verdana 4d Liver MR#: [id number] Acct: [id number] Name: CHAVEZ,KAY Elia Rep #: [id number] : 1945 F 70 From: Kevin Pugh MD PCP: Monse Silverman DO Status: REG CLI Study: Liver Date of Exam: 01/24/16 Exam# [id number] Ordering Dr: Monse Silverman DO STUDY: ABDOMINAL U LTRASOUND - RIGHT UPPER QUADRANT REASON FOR VISIT: Female, 70 years old. History of fatty infiltration of liver. TECHNIQUE: Ultrasound evaluation of the right upper quadrant was performed with monty l-time and static marvin-scale imaging. TECHNICAL QUALITY: Adequate. COMPARISON: None. FINDINGS: Liver: The liver measures 13.8 cm. There is increased echogeni city consistent with fatty infiltration. The bile ducts are within normal limits. There is hepatic color flow. The direction of portal flow is hepatopetal. There is a 7 mm x 7 mm x 7 mm cyst in the r ight lobe of the liver. Gallbladder: Normal distended gallbladder. The gallbladder wall measures 2.9 mm. There is a negative sonographic Jennings's sign. There is no pericholecystic fluid. There are no gallstones. Common Bile Duct (C.B.D.): The common bile duct measures 3.8 mm. Pancreas: Normal size of the head, body and tail of the pancreas. There is increased echogenicity of the pancreas. Th ere is no demonstrated pancreatic mass or cyst. Right Kidney: Normal size of the right kidney. The right kidney measures 9.4 cm x 5.3 cm x 5.2 cm. Normal renal cortex. The right cortex measures 1.4 cm. There is no demonstrated renal mass or cyst. There is no right hydronephrosis. IMPRESSION: Fatty infiltration of the liver. Small cyst in the right lobe o f the liver adjacent to the right hemidiaphragm. Electronically Signed: Kevin Pugh MD at 13:42 EDT Tel [phone], Service support [phone], CC: Olga Silverman DO Senior Hr Manager: Signed 20-Jan-2016 EKG (13028) Comments: ekg showed normal sinus rhythym, normal axis,sinus liv and twave inversion laterally Result: [MEASUREMENTS ANALYSIS] Date of Test: 01/20/2016 10:36:37; Heart Rate: 53; MT Interval: 196; QRS: 86; QT Interval: 438; Corrected QT Interval (QTc): 426; P Wave Allen: 27; QRS Wave Allen: 32; T Wave Allen: 90; Blood Pressure: 138/76 [ECG DIAGNOSTIC STATEMENTS] Date of Test: 01/20/2016 10:36:37; Summary: Sinus Bradycardia - Nonspecific T-abnormality. ABNORMAL Immunization Name Dates Details Influenza vaccine, split, 3yrs &>, IM (FLUZONE) on: Jul-2018 Family History Unknown Family Member Name Dates Details Brother 1 Comments: living at age 67- cad - stent Status: Active Father Comments: father and has hx of afib and copd- smoker chronic kidney disease- abd aortic aneuryusm- repair- she was checked and ok- age 89- accieent with car and then pneumonia Status: Active Mother Comments: living - age 90- diabetes , aortic stenosis stroke high chol htn and cad Status: Active Social History Name Dates Details Alcohol Use: Occasional alcohol use. Status: Active Caffeine Use Status: Active Tobacco use: Former smoker. Comments: quit smoking in late 40s to 50s Status: Active Smoking Status Name Dates Details Former smoker Vital Signs Date Test Result Details [id number] Temperature 97.9 f Comments: Method: Temporal Pulse 70 /min Comments: Pattern: Regular Respiration Rate 16 /min Comments: Pattern: Unlabored O2 SAT 98 % Comments: Room air BP Systolic 118 mm[Hg] Comments: Patient Position: Sitting; Cuff Location: Left Arm; Cuff Size: Standard BP Diastolic 70 mm[Hg] Comments: Patient Position: Sitting; Cuff Location: Left Arm; Cuff Size: Standard Weight 176 lb Height 65 in Body Mass Index Calculated 29.29 kg/m2 Body Surface Area Calculated 1.87 m2 [id number]-[id number] Pulse 82 /min Comments: Pattern: Regular Respiration Rate 16 /min Comments: Pattern: Unlabored BP Systolic 122 mm[Hg] Comments: Patient Position: Sitting; Cuff Location: Left Arm; Cuff Size: Standard BP Diastolic 67 mm[Hg] Comments: Patient Position: Sitting; Cuff Location: Left Arm; Cuff Size: Standard :33 Temperature 97.8 f Comments: Method: Temporal Pulse 81 /min Comments: Pattern: Regular Respiration Rate 16 /min Comments: Pattern: Unlabored BP Systolic 138 mm[Hg] Comments: Patient Position: Sitting; Cuff Location: Left Arm; Cuff Size: Standard BP Diastolic 70 mm[Hg] Comments: Patient Position: Sitting; Cuff Location: Left Arm; Cuff Size: Standard Weight 178 lb Height 65 in Body Mass Index Calculated 29.62 kg/m2 Body Surface Area Calculated 1.88 m2 :31 Pulse 80 /min Comments: Pattern: Regular Respiration Rate 17 /min Comments: Pattern: Unlabored O2 SAT 98 % Comments: Room air BP Systolic 124 mm[Hg] Comments: Patient Position: Sitting; Cuff Location: Left Arm; Cuff Size: Standard BP Diastolic 76 mm[Hg] Comments: Patient Position: Sitting; Cuff Location: Left Arm; Cuff Size: Standard Weight 176.125 lb Height 65 in Body Mass Index Calculated 29.31 kg/m2 Body Surface Area Calculated 1.87 m2 :41 Temperature 97.3 f Comments: Method: Oral Pulse 55 /min Comments: Pattern: Regular Respiration Rate 16 /min BP Systolic 124 mm[Hg] Comments: Patient Position: Sitting BP Diastolic 72 mm[Hg] Comments: Patient Position: Sitting Weight 169 lb Height 65 in Body Mass Index Calculated 28.12 kg/m2 Body Surface Area Calculated 1.84 m2 :29 Temperature 97.3 f Comments: Method: Temporal Pulse 62 /min Comments: Pattern: Regular Respiration Rate 16 /min Comments: Pattern: Unlabored BP Systolic 128 mm[Hg] Comments: Patient Position: Sitting; Cuff Location: Left Arm; Cuff Size: Standard BP Diastolic 70 mm[Hg] Comments: Patient Position: Sitting; Cuff Location: Left Arm; Cuff Size: Standard Weight 166.125 lb Height 65.5 in Body Mass Index Calculated 27.22 kg/m2 Body Surface Area Calculated 1.84 m2 :06 Temperature 97.2 f Comments: Method: Temporal Pulse 76 /min Comments: Pattern: Regular Respiration Rate 16 /min Comments: Pattern: Unlabored BP Systolic 114 mm[Hg] Comments: Patient Position: Sitting; Cuff Location: Left Arm; Cuff Size: Standard BP Diastolic 72 mm[Hg] Comments: Patient Position: Sitting; Cuff Location: Left Arm; Cuff Size: Standard Weight 166 lb Height 65.5 in Body Mass Index Calculated 27.2 kg/m2 Body Surface Area Calculated 1.84 m2 :13 Temperature 97.4 f Comments: Method: Tympanic Pulse 52 /min Comments: Pattern: Regular Respiration Rate 18 /min Comments: Pattern: Unlabored O2 SAT 98 % Comments: Room air BP Systolic 132 mm[Hg] Comments: Patient Position: Sitting; Cuff Location: Left Arm; Cuff Size: Standard BP Diastolic 64 mm[Hg] Comments: Patient Position: Sitting; Cuff Location: Left Arm; Cuff Size: Standard Weight 174 lb Height 65.5 in Body Mass Index Calculated 28.51 kg/m2 Body Surface Area Calculated 1.87 m2 :47 Temperature 97.1 f Comments: Method: Temporal Pulse 60 /min Comments: Pattern: Regular Respiration Rate 15 /min Comments: Pattern: Unlabored O2 SAT 97 % Comments: Room air BP Systolic 138 mm[Hg] Comments: Patient Position: Sitting; Cuff Location: Left Arm; Cuff Size: Standard BP Diastolic 76 mm[Hg] Comments: Patient Position: Sitting; Cuff Location: Left Arm; Cuff Size: Standard Weight 175 lb Height 65.5 in Body Mass Index Calculated 28.68 kg/m2 Body Surface Area Calculated 1.88 m2 :05 BP Systolic 118 mm[Hg] Comments: Patient Position: Sitting BP Diastolic 68 mm[Hg] Comments: Patient Position: Sitting :35 Temperature 98.7 f Pulse 56 /min Comments: Pattern: Regular Respiration Rate 16 /min Comments: Pattern: Unlabored BP Systolic 142 mm[Hg] Comments: Patient Position: Sitting; Cuff Location: Left Arm; Cuff Size: Large BP Diastolic 88 mm[Hg] Comments: Patient Position: Sitting; Cuff Location: Left Arm; Cuff Size: Large Weight 172 lb Height 65.5 in Body Mass Index Calculated 28.19 kg/m2 Body Surface Area Calculated 1.87 m2 :39 Pulse 80 /min Comments: Pattern: Regular Respiration Rate 17 /min Comments: Pattern: Unlabored BP Systolic 110 mm[Hg] Comments: Patient Position: Sitting; Cuff Location: Left Arm; Cuff Size: Large BP Diastolic 60 mm[Hg] Comments: Patient Position: Sitting; Cuff Location: Left Arm; Cuff Size: Large Weight 174 lb Height 65.5 in Body Mass Index Calculated 28.51 kg/m2 Body Surface Area Calculated 1.87 m2 :31 Temperature 98.2 f Comments: Method: Temporal Pulse 82 /min Comments: Pattern: Regular Respiration Rate 16 /min Comments: Pattern: Unlabored O2 SAT 98 % Comments: Room air BP Systolic 116 mm[Hg] Comments: Patient Position: Sitting; Cuff Location: Left Arm; Cuff Size: Standard BP Diastolic 84 mm[Hg] Comments: Patient Position: Sitting; Cuff Location: Left Arm; Cuff Size: Standard Weight 174 lb Height 65.5 in Body Mass Index Calculated 28.51 kg/m2 Body Surface Area Calculated 1.87 m2 :08 Temperature 98.6 f Comments: Method: Oral Pulse 66 /min Comments: Pattern: Regular Respiration Rate 16 /min BP Systolic 120 mm[Hg] Comments: Patient Position: Sitting; Cuff Location: Left Arm; Cuff Size: Standard BP Diastolic 74 mm[Hg] Comments: Patient Position: Sitting; Cuff Location: Left Arm; Cuff Size: Standard Weight 174 lb Height 65.5 in Body Mass Index Calculated 28.51 kg/m2 Body Surface Area Calculated 1.87 m2 :36 Temperature 98.7 f Comments: Method: Oral Pulse 72 /min Comments: Pattern: Regular Respiration Rate 16 /min Comments: Pattern: Unlabored O2 SAT 98 % Comments: Room air BP Systolic 126 mm[Hg] Comments: Patient Position: Sitting; Cuff Location: Left Arm; Cuff Size: Standard BP Diastolic 74 mm[Hg] Comments: Patient Position: Sitting; Cuff Location: Left Arm; Cuff Size: Standard Weight 174 lb Height 65.5 in Body Mass Index Calculated 28.51 kg/m2 Body Surface Area Calculated 1.87 m2 :15 Temperature 98 f Comments: Method: Oral Pulse 68 /min Comments: Pattern: Regular Respiration Rate 16 /min Comments: Pattern: Unlabored BP Systolic 132 mm[Hg] Comments: Patient Position: Sitting; Cuff Location: Left Arm; Cuff Size: Large BP Diastolic 80 mm[Hg] Comments: Patient Position: Sitting; Cuff Location: Left Arm; Cuff Size: Large Weight 178 lb Height 65.5 in Body Mass Index Calculated 29.17 kg/m2 Body Surface Area Calculated 1.89 m2 :48 Temperature 98.2 f Pulse 60 /min Comments: Pattern: Regular Respiration Rate 16 /min Comments: Pattern: Unlabored BP Systolic 124 mm[Hg] Comments: Patient Position: Sitting; Cuff Location: Left Arm; Cuff Size: Large BP Diastolic 68 mm[Hg] Comments: Patient Position: Sitting; Cuff Location: Left Arm; Cuff Size: Large Weight 176 lb Height 65.5 in Body Mass Index Calculated 28.84 kg/m2 Body Surface Area Calculated 1.88 m2 [id number]:51 Temperature 98.5 f Pulse 76 /min Comments: Pattern: Regular Respiration Rate 16 /min Comments: Pattern: Unlabored BP Systolic 110 mm[Hg] Comments: Patient Position: Sitting; Cuff Location: Left Arm; Cuff Size: Large BP Diastolic 80 mm[Hg] Comments: Patient Position: Sitting; Cuff Location: Left Arm; Cuff Size: Large Weight 177 lb Height 65.5 in Body Mass Index Calculated 29.01 kg/m2 Body Surface Area Calculated 1.89 m2 :57 Temperature 98.6 f Pulse 60 /min Comments: Pattern: Regular Respiration Rate 16 /min Comments: Pattern: Unlabored BP Systolic 124 mm[Hg] Comments: Patient Position: Sitting; Cuff Location: Left Arm; Cuff Size: Standard BP Diastolic 76 mm[Hg] Comments: Patient Position: Sitting; Cuff Location: Left Arm; Cuff Size: Standard Weight 175 lb Height 65.5 in Body Mass Index Calculated 28.68 kg/m2 Body Surface Area Calculated 1.88 m2 :30 Temperature 98.3 f Pulse 72 /min Comments: Pattern: Regular Respiration Rate 18 /min Comments: Pattern: Unlabored BP Systolic 126 mm[Hg] Comments: Patient Position: Sitting; Cuff Location: Left Arm; Cuff Size: Standard BP Diastolic 84 mm[Hg] Comments: Patient Position: Sitting; Cuff Location: Left Arm; Cuff Size: Standard Weight 174 lb Height 65.5 in Body Mass Index Calculated 28.51 kg/m2 Body Surface Area Calculated 1.87 m2 :08 O2 SAT 89 % Comments: Room air :17 Temperature 99.7 f Pulse 88 /min Comments: Pattern: Regular Respiration Rate 16 /min Comments: Pattern: Unlabored BP Systolic 138 mm[Hg] Comments: Patient Position: Sitting; Cuff Location: Left Arm; Cuff Size: Large BP Diastolic 72 mm[Hg] Comments: Patient Position: Sitting; Cuff Location: Left Arm; Cuff Size: Large Weight 174 lb Height 65.5 in Body Mass Index Calculated 28.51 kg/m2 Body Surface Area Calculated 1.87 m2 Results Date Description Value Details [id number]:54 HgA1C , Office (97447) HgA1C , Office 5.4 % (Normal) Range: 4.6 - 7.1 :24 LIPID PANEL (77473) Comments: PATIENT WAS FASTINGPERFORMED BY: Digg [facility] [id number] LDL/HDL Ratio 2.1 {ratio} (Normal) Range: 0.0-3.2 Comments: LDL/HDL Ratio Men Women 1/2 Avg.Risk 1.0 1.5 Av g.Risk 3.6 3.2 2X Avg.Risk 6.2 5.0 3X Avg.Risk 8.0 6.1 LDL Cholesterol Calc 102 mg/dL (Abnormal) Range: 0-99 VLDL Cholesterol Layla 35 mg/dL (Normal) Range: 5-40 HDL Cholesterol 48 mg/dL (Normal) Triglycerides 176 mg/dL (Abnormal) Range: 0-149 Cholesterol, Total 185 mg/dL (Normal) Range: 100-199 45-Yyy-780206:24 MICROALBUMIN: CREATININE RATIO Comments: PATIENT WAS FASTINGPERFORMED BY: Digg [facility] [id number] ([id number]) AND (60343) Alb/Creat Ratio 4.3 {mg/g_creat} (Normal) Range: 0.0-30.0 Comments: Normal: 0.0 - 30.0 Albuminuria: 31.0 - 300.0 Clinical albuminuria: >300.0 Albumin, Urine 7.0 ug/mL (Normal) Creatinine, Urine 163.8 mg/dL (Normal) :24 METABOLIC PANEL, COMPREHENSIVE Comments: PATIENT WAS FASTINGPERFORMED BY: [employer] [facility] [id number] ([id number]) ALT (SGPT) 20 [iU]/L (Normal) Range: 0-32 AST (SGOT) 24 [iU]/L (Normal) Range: 0-40 Alkaline Phosphatase 62 [iU]/L (Normal) Range: 39-117 Bilirubin, Total 0.5 mg/dL (Normal) Range: 0.0-1.2 A/G Ratio 1.8 (Normal) Range: 1.2-2.2 Globulin, Total 2.7 g/dL (Normal) Range: 1.5-4.5 Albumin 4.9 g/dL (Abnormal) Range: 3.5-4.8 Protein, Total 7.6 g/dL (Normal) Range: 6.0-8.5 Calcium 9.9 mg/dL (Normal) Range: 8.7-10.3 Carbon Dioxide, Total 24 mmol/L (Normal) Range: 20-29 Chloride 102 mmol/L (Normal) Range: 96-106 Potassium 4.7 mmol/L (Normal) Range: 3.5-5.2 Sodium 139 mmol/L (Normal) Range: 134-144 BUN/Creatinine Ratio 16 (Normal) Range: 12-28 eGFR If Africn Am 73 mL/min/1.73 (Normal) eGFR If NonAfricn Am 64 mL/min/1.73 (Normal) Creatinine 0.91 mg/dL (Normal) Range: 0.57-1.00 BUN 15 mg/dL (Normal) Range: 8-27 Glucose 80 mg/dL (Normal) Range: 65-99 4-Dxt-146604:03 CBC W/AUTO DIFF WBC (90919) Comments: PATIENT WAS FASTINGPERFORMED BY: [facility] ElmerTxvemz2138 [facility] [id number] Immature Grans (Abs) 0.0 {x10E3/uL} (Normal) Range: 0.0-0.1 Immature Granulocytes 0 % (Normal) Baso (Absolute) 0.1 {x10E3/uL} (Normal) Range: 0.0-0.2 Eos (Absolute) 0.1 {x10E3/uL} (Normal) Range: 0.0-0.4 Monocytes(Absolute) 0.4 {x10E3/uL} (Normal) Range: 0.1-0.9 Lymphs (Absolute) 2.0 {x10E3/uL} (Normal) Range: 0.7-3.1 Neutrophils (Absolute) 2.3 {x10E3/uL} (Normal) Range: 1.4-7.0 Basos 2 % (Normal) Eos 2 % (Normal) Monocytes 9 % (Normal) Lymphs 40 % (Normal) Neutrophils 47 % (Normal) Platelets 269 {x10E3/uL} (Normal) Range: 150-379 RDW 12.8 % (Normal) Range: 12.3-15.4 MCHC 33.7 g/dL (Normal) Range: 31.5-35.7 MCH 30.2 pg (Normal) Range: 26.6-33.0 MCV 90 fL (Normal) Range: 79-97 Hematocrit 39.5 % (Normal) Range: 34.0-46.6 Hemoglobin 13.3 g/dL (Normal) Range: 11.1-15.9 RBC 4.41 {x10E6/uL} (Normal) Range: 3.77-5.28 WBC 5.0 {x10E3/uL} (Normal) Range: 3.4-10.8 1-Jgm-547593:03 LIPID PANEL (28959) Comments: PATIENT WAS FASTINGPERFORMED BY: Digg [facility] [id number]; review on 04/25 LDL/HDL Ratio 2.0 {ratio} (Normal) Range: 0.0-3.2 Comments: LDL/HDL Ratio Men Women 1/2 Avg.Risk 1.0 1.5 Av g.Risk 3.6 3.2 2X Avg.Risk 6.2 5.0 3X Avg.Risk 8.0 6.1 LDL Cholesterol Calc 96 mg/dL (Normal) Range: 0-99 VLDL Cholesterol Layla 29 mg/dL (Normal) Range: 5-40 HDL Cholesterol 48 mg/dL (Normal) Triglycerides 146 mg/dL (Normal) Range: 0-149 Cholesterol, Total 173 mg/dL (Normal) Range: 100-199 1-Bpa-109407:03 [id number] (60263) Comments: PATIENT WAS FASTINGPERFORMED BY: Digg [facility] [id number] AFP, Serum, Tumor Marker 5.0 ng/mL (Normal) Range: 0.0-8.3 Comments: Aris ECLIA methodology [id number]-Eiy-229565:03 MICROALBUMIN: CREATININE RATIO Comments: PATIENT WAS FASTINGPERFORMED BY: Digg Jenkins [facility] [id number] ([id number]) AND (15794) Alb/Creat Ratio 3.9 {mg/g_creat} (Normal) Range: 0.0-30.0 Albumin, Urine 5.8 ug/mL (Normal) Creatinine, Urine 149.6 mg/dL (Normal) 5-Uvp-865394:03 METABOLIC PANEL, COMPREHENSIVE Comments: PATIENT WAS FASTINGPERFORMED BY: [facility] [id number] ([id number]) ALT (SGPT) 24 [iU]/L (Normal) Range: 0-32 AST (SGOT) 24 [iU]/L (Normal) Range: 0-40 Alkaline Phosphatase 54 [iU]/L (Normal) Range: 39-117 Bilirubin, Total 0.4 mg/dL (Normal) Range: 0.0-1.2 A/G Ratio 1.6 (Normal) Range: 1.2-2.2 Globulin, Total 2.7 g/dL (Normal) Range: 1.5-4.5 Albumin 4.3 g/dL (Normal) Range: 3.5-4.8 Protein, Total 7.0 g/dL (Normal) Range: 6.0-8.5 Calcium 9.5 mg/dL (Normal) Range: 8.7-10.3 Carbon Dioxide, Total 23 mmol/L (Normal) Range: 20-29 Comments: Please note reference interval change Chloride 105 mmol/L (Normal) Range: 96-106 Potassium 4.7 mmol/L (Normal) Range: 3.5-5.2 Sodium 141 mmol/L (Normal) Range: 134-144 BUN/Creatinine Ratio 16 (Normal) Range: 12-28 eGFR If Africn Am 73 mL/min/1.73 (Normal) eGFR If NonAfricn Am 64 mL/min/1.73 (Normal) Creatinine 0.91 mg/dL (Normal) Range: 0.57-1.00 BUN 15 mg/dL (Normal) Range: 8-27 Glucose 90 mg/dL (Normal) Range: 65-99 5-Ogc-808463:03 HGB A1C (63360) Comments: PATIENT WAS FASTINGPERFORMED BY: [facility] [id number] Hemoglobin A1c 5.2 % (Normal) Range: 4.8-5.6 Comments: . Pre-diabetes: 5.7 - 6.4 Diabetes: >6.4 Glycemic control for adults with diabetes: <7.0 95-Ixf-146702:20 HEPATITIS C ANTIBODY (66665) Comments: PATIENT NOT FASTINGPERFORMED BY: [facility] ElmerGrompg9291 [facility] [id number] Hep C Virus Ab <0.1 {s/co_ratio} (Normal) Range: 0.0-0.9 Comments: Negative: < 0.8 Indeterminate: 0.8 - 0.9 Positive: > 0.9 . The CDC recommends that a positive HCV antibody result be followed up with a HCV Nucleic Acid Amplification test (195910). 83-Lug-951205:20 Metabolic Panel, Basic Comments: PATIENT NOT FASTINGPERFORMED BY: unamia [employer]epbaw8772 [facility] [id number] ([id number]) Calcium, Serum 9.9 mg/dL (Normal) Range: 8.7-10.3 Carbon Dioxide, Total 23 mmol/L (Normal) Range: 18-29 Chloride, Serum 102 mmol/L (Normal) Range: 96-106 Potassium, Serum 4.4 mmol/L (Normal) Range: 3.5-5.2 Sodium, Serum 143 mmol/L (Normal) Range: 134-144 BUN/Creatinine Ratio 13 (Normal) Range: 12-28 eGFR If Africn Am 73 mL/min/1.73 (Normal) eGFR If NonAfricn Am 64 mL/min/1.73 (Normal) Creatinine, Serum 0.91 mg/dL (Normal) Range: 0.57-1.00 BUN 12 mg/dL (Normal) Range: 8-27 Glucose, Serum 111 mg/dL (Abnormal) Range: 65-99 48-Mwc-780958:20 URINALYSIS (78189) Comments: PATIENT NOT FASTINGPERFORMED BY: [facility] [id number] Microscopic Examination MICNIP (Normal) Comments: Microscopic not indicated and not performed. Nitrite, Urine Negative (Normal) Urobilinogen,Semi-Qn 0.2 mg/dL (Normal) Range: 0.2-1.0 Bilirubin Negative (Normal) Occult Blood Negative (Normal) Ketones Negative (Normal) Glucose Negative (Normal) Protein Negative (Normal) WBC Esterase Negative (Normal) Appearance Clear (Normal) Urine-Color Yellow (Normal) pH 5.5 (Normal) Range: 5.0-7.5 Specific [place] 1.022 (Normal) Range: 1.005-1.030 78-Vgt-326317:06 METABOLIC PANEL, COMPREHENSIVE Comments: PATIENT NOT FASTINGPERFORMED BY: [email or web address] [facility] [id number] ([id number]) ALT (SGPT) 17 [iU]/L (Normal) Range: 0-32 AST (SGOT) 20 [iU]/L (Normal) Range: 0-40 Alkaline Phosphatase, S 55 [iU]/L (Normal) Range: 39-117 Bilirubin, Total 0.3 mg/dL (Normal) Range: 0.0-1.2 A/G Ratio 1.5 (Normal) Range: 1.2-2.2 Globulin, Total 2.9 g/dL (Normal) Range: 1.5-4.5 Albumin, Serum 4.4 g/dL (Normal) Range: 3.5-4.8 Protein, Total, Serum 7.3 g/dL (Normal) Range: 6.0-8.5 Calcium, Serum 9.5 mg/dL (Normal) Range: 8.7-10.3 Carbon Dioxide, Total 20 mmol/L (Normal) Range: 18-29 Chloride, Serum 105 mmol/L (Normal) Range: 96-106 Potassium, Serum 5.0 mmol/L (Normal) Range: 3.5-5.2 Sodium, Serum 143 mmol/L (Normal) Range: 134-144 BUN/Creatinine Ratio 14 (Normal) Range: 12-28 eGFR If Africn Am 68 mL/min/1.73 (Normal) eGFR If NonAfricn Am 59 mL/min/1.73 (Abnormal) Creatinine, Serum 0.97 mg/dL (Normal) Range: 0.57-1.00 BUN 14 mg/dL (Normal) Range: 8-27 Glucose, Serum 101 mg/dL (Abnormal) Range: 65-99 02-Pts-853568:06 CBC, PLATELETS & MANUAL Comments: PATIENT NOT FASTINGPERFORMED BY: [facility] [id number] Information: NURSE DRAW DIFF (85844) Immature Grans (Abs) 0.0 {x10E3/uL} (Normal) Range: 0.0-0.1 Immature Granulocytes 0 % (Normal) Baso (Absolute) 0.1 {x10E3/uL} (Normal) Range: 0.0-0.2 Eos (Absolute) 0.1 {x10E3/uL} (Normal) Range: 0.0-0.4 Monocytes(Absolute) 0.6 {x10E3/uL} (Normal) Range: 0.1-0.9 Lymphs (Absolute) 2.0 {x10E3/uL} (Normal) Range: 0.7-3.1 Neutrophils (Absolute) 3.0 {x10E3/uL} (Normal) Range: 1.4-7.0 Basos 1 % (Normal) Eos 2 % (Normal) Monocytes 10 % (Normal) Lymphs 35 % (Normal) Neutrophils 52 % (Normal) Platelets 246 {x10E3/uL} (Normal) Range: 150-379 RDW 12.4 % (Normal) Range: 12.3-15.4 MCHC 33.3 g/dL (Normal) Range: 31.5-35.7 MCH 30.6 pg (Normal) Range: 26.6-33.0 MCV 92 fL (Normal) Range: 79-97 Hematocrit 42.0 % (Normal) Range: 34.0-46.6 Hemoglobin 14.0 g/dL (Normal) Range: 11.1-15.9 RBC 4.57 {x10E6/uL} (Normal) Range: 3.77-5.28 WBC 5.7 {x10E3/uL} (Normal) Range: 3.4-10.8 57-Dlt-553823:06 CBC with auto diff ([id number]) Comments: PATIENT WAS FASTINGPERFORMED BY: [facility] [id number] Immature Grans (Abs) 0.0 {x10E3/uL} (Normal) Range: 0.0-0.1 Immature Granulocytes 0 % (Normal) Baso (Absolute) 0.1 {x10E3/uL} (Normal) Range: 0.0-0.2 Eos (Absolute) 0.1 {x10E3/uL} (Normal) Range: 0.0-0.4 Monocytes(Absolute) 0.7 {x10E3/uL} (Normal) Range: 0.1-0.9 Lymphs (Absolute) 2.4 {x10E3/uL} (Normal) Range: 0.7-3.1 Neutrophils (Absolute) 2.9 {x10E3/uL} (Normal) Range: 1.4-7.0 Basos 1 % (Normal) Eos 2 % (Normal) Monocytes 11 % (Normal) Lymphs 39 % (Normal) Neutrophils 47 % (Normal) Platelets 252 {x10E3/uL} (Normal) Range: 150-379 RDW 12.9 % (Normal) Range: 12.3-15.4 MCHC 32.7 g/dL (Normal) Range: 31.5-35.7 MCH 29.5 pg (Normal) Range: 26.6-33.0 MCV 90 fL (Normal) Range: 79-97 Hematocrit 41.3 % (Normal) Range: 34.0-46.6 Hemoglobin 13.5 g/dL (Normal) Range: 11.1-15.9 RBC 4.57 {x10E6/uL} (Normal) Range: 3.77-5.28 WBC 6.1 {x10E3/uL} (Normal) Range: 3.4-10.8 50-Zel-882585:06 LIPID PANEL ([id number]) Comments: PATIENT WAS FASTINGPERFORMED BY: [facility] Kdtjtd2244 [facility] [id number] LDL/HDL Ratio 2.0 {ratio_units} (Normal) Range: 0.0-3.2 Comments: LDL/HDL Ratio Men Women 1/2 Avg.Risk 1.0 1.5 Av g.Risk 3.6 3.2 2X Avg.Risk 6.2 5.0 3X Avg.Risk 8.0 6.1 LDL Cholesterol Calc 98 mg/dL (Normal) Range: 0-99 VLDL Cholesterol Layla 25 mg/dL (Normal) Range: 5-40 HDL Cholesterol 50 mg/dL (Normal) Triglycerides 125 mg/dL (Normal) Range: 0-149 Cholesterol, Total 173 mg/dL (Normal) Range: 100-199 49-Jek-643276:06 MICROALBUMIN: CREATININE RATIO Comments: PATIENT WAS FASTINGPERFORMED BY: [facility] [id number] ([id number]) AND (93650) Microalb/Creat Ratio 2.8 {mg/g_creat} (Normal) Range: 0.0-30.0 Microalbumin, Urine 4.6 ug/mL (Normal) Creatinine, Urine 164.4 mg/dL (Normal) 84-Qma-437798:06 METABOLIC PANEL, COMPREHENSIVE Comments: PATIENT WAS FASTINGPERFORMED BY: [facility] ElmerYzdvmk7473 [facility] [id number] ([id number]) ALT (SGPT) 18 [iU]/L (Normal) Range: 0-32 AST (SGOT) 22 [iU]/L (Normal) Range: 0-40 Alkaline Phosphatase, S 55 [iU]/L (Normal) Range: 39-117 Bilirubin, Total 0.4 mg/dL (Normal) Range: 0.0-1.2 A/G Ratio 1.5 (Normal) Range: 1.2-2.2 Globulin, Total 2.8 g/dL (Normal) Range: 1.5-4.5 Albumin, Serum 4.3 g/dL (Normal) Range: 3.5-4.8 Protein, Total, Serum 7.1 g/dL (Normal) Range: 6.0-8.5 Calcium, Serum 9.9 mg/dL (Normal) Range: 8.7-10.3 Carbon Dioxide, Total 26 mmol/L (Normal) Range: 18-29 Chloride, Serum 100 mmol/L (Normal) Range: 96-106 Potassium, Serum 5.0 mmol/L (Normal) Range: 3.5-5.2 Sodium, Serum 140 mmol/L (Normal) Range: 134-144 BUN/Creatinine Ratio 17 (Normal) Range: 12-28 eGFR If Africn Am 61 mL/min/1.73 (Normal) eGFR If NonAfricn Am 53 mL/min/1.73 (Abnormal) Creatinine, Serum 1.06 mg/dL (Abnormal) Range: 0.57-1.00 BUN 18 mg/dL (Normal) Range: 8-27 Glucose, Serum 82 mg/dL (Normal) Range: 65-99 32-Nkw-024116:06 HGB A1C ([id number]) Comments: PATIENT WAS FASTINGPERFORMED BY: [facility]6370 [facility] [id number] Hemoglobin A1c 5.5 % (Normal) Range: 4.8-5.6 Comments: . Pre-diabetes: 5.7 - 6.4 Diabetes: >6.4 Glycemic control for adults with diabetes: <7.0 :06 Vitamin D Hydroxy (66054) Comments: PATIENT WAS FASTINGPERFORMED BY: [facility]6370 [facility] [id number] Vitamin D, 25-Hydroxy 43.6 ng/mL (Normal) Range: 30.0-100.0 Comments: Vitamin D deficiency has been defined by the [place] of[place] and an Endocrine Society practice guideline as alevel of serum 25-OH vitamin D less than 20 ng/mL (1,2).The Endocrine Society went on to further define vitamin Dinsufficiency as a level between 21 and 29 ng/mL (2).1. IOM ([place] of [employer]). 2010. Dietary reference intakes for calcium and D. Amin [place]: The National Academies Press.2. Maycol MF, Nilton NC, Jose WILLIS, et al. Evaluation, treatment, and prevention of vitamin D deficiency: an Endocrine Society clinical practice guideline. JCEM. 2010; 96(7):1911-30. :06 [id number]-[id number] ([id number]) Comments: PATIENT WAS FASTINGPERFORMED BY: [facility]6370 [facility] [id number] AFP, Serum, Tumor Marker 4.8 ng/mL (Normal) Range: 0.0-8.3 Comments: Aris ECLIA methodology :57 Urinalysis, Office (57241) UA - LEUKOCYTE ESTERASE Moderate (Normal) UA - NITRITE Positive (Normal) URINE UROBILINGN OLEGARIO TIMED Normal mg/dL (Normal) UA - PROTEIN Trace mg/dL (Normal) UA - PH 6 (Abnormal) UA - BLOOD Non Hemolyzed Moderate (Normal) UA - SPECIFIC GRAVITY 1.025 (Normal) UA - KETONES Negative mg/dL (Normal) UA - BILIRUBIN Negative (Normal) UA - GLUCOSE Negative (Normal) 10-Egw-945168:26 URINE CASSANDRA CULTURE-IDENTIFICATN Comments: PATIENT NOT FASTINGPERFORMED BY: [facility] Hfunay4980 [facility] [id number] Information: SRC: ([id number]) Result 1 ECV (Abnormal) Comments: Escherichia coli, identified by an automated biochemical system.Greater than 100,000 colony forming units per mL S = Susceptible; I = Intermediate; R = Resistant P = Positiv e; N = Negative MICS are expressed in micrograms per mL Antibiotic RSLT#1 RSLT#2 RSLT#3 RSLT#4Amoxicillin/Clavulanic Acid RAmpicillin RCefazo anand RCefepime SCeftriaxone SCefuroxime SCephalothin RCiprofloxacin SErtapenem SGentamicin RImipenem SLevofloxacin SNitrofurantoin SPiperacillin RTetracycline STobramycin RTrimethoprim/Sulfa S Urine Final report Culture,Comprehensi (Abnormal) ve 61-Wob-308631:29 URINE CASSANDRA CULTURE-OLEGARIO COL Comments: PATIENT NOT FASTINGPERFORMED BY: [facility] [id number] [facility] [id number] Information: SRC: COUNT ([id number]) Antimicrobial MIHEAD (Normal) Comments: S = Susceptible; I = Intermediate; R = Resistant P = Positive; N = Negative MICS are expressed in micrograms per mL Antibiotic RSLT#1 RSLT#2 RS Susceptibility LT#3 RSLT#4Amoxicillin/Clavulanic Acid SAmpicillin SCefepime SCeftriaxone SCefuroxime SCephalothin ICiprofloxacin SErtapenem SGentamicin SImipenem SLevofloxacin SNitrofurantoin SPipera cillin STetracycline STobramycin STrimethoprim/Sulfa S Result 1 Escherichia coli Comments: Greater than 100,000 colony forming units per mL (Abnormal) Urine Final report Culture,Comprehensive (Abnormal) 11-Gdo-077517:09 Urinalysis, Office (65240) UA - LEUKOCYTE ESTERASE Moderate (Normal) UA - NITRITE Negative (Normal) URINE UROBILINGN OLEGARIO TIMED Normal mg/dL (Normal) UA - PROTEIN Negative mg/dL (Normal) UA - PH 6.0 (Normal) Comments: 5.5 UA - BLOOD Non Hemolyzed Moderate (Normal) UA - SPECIFIC GRAVITY 1.025 (Normal) UA - KETONES Small mg/dL (Normal) UA - BILIRUBIN Negative (Normal) UA - GLUCOSE Negative (Normal) 93-Sbl-597134:18 Serum Creatinine AND GFR Comments: [facility] [address] [place], [place], [id number] ; done for the ct EST GFR - AA 63 mL/min (Normal) Comments: GFR Calc EST GFR 52 mL/min (Abnormal) Comments: Non- GFR Calc CREAT,SERUM 1.11 mg/dL (Normal) Range: 0.55-1.20 Comments: The validity of the calculated GFR AND GFRAA in patients over70 years has not been determined. Clinical correlation isessential. 81-Uun-161292:56 Microscopic Examination Comments: PATIENT WAS FASTINGPERFORMED BY: [facility]70 [facility] [id number] Bacteria Few (Normal) Mucus Threads Present (Normal) Epithelial Cells (non renal) 0-10 {/hpf} (Normal) Range: 0 - 10 RBC 0-2 {/hpf} (Normal) Range: 0 - 2 WBC 6-10 {/hpf} (Abnormal) Range: 0 - 5 60-Qnm-232445:56 MICROALBUMIN: CREATININE RATIO Comments: PATIENT WAS FASTINGPERFORMED BY: [facility] [id number] ([id number]) AND (27726) Microalb/Creat Ratio 4.9 {mg/g_creat} (Normal) Range: 0.0-30.0 Microalbumin, Urine 10.6 ug/mL (Normal) Range: 0.0-17.0 Comments: Effective February 10, 2016 the reference interval for Microalbumin, Urine will be changing to: Not Estab. Creatinine, Urine 218.5 mg/dL (Normal) Range: 15.0-278.0 Comments: Effective February 10, 2016 the reference interval for Creatinine, Urine will be changing to: Not Estab. 67-Xee-041121:56 HGB A1C (32187) Comments: PATIENT WAS FASTINGPERFORMED BY: [facility]6370 [facility] [id number] Hemoglobin A1c 5.6 % (Normal) Range: 4.8-5.6 Comments: . Pre-diabetes: 5.7 - 6.4 Diabetes: >6.4 Glycemic control for adults with diabetes: <7.0 :56 Vitamin D Hydroxy (08081) Comments: PATIENT WAS FASTINGPERFORMED BY: [facility]6[address] [facility] [id number] Vitamin D, 25-Hydroxy 20.1 ng/mL (Abnormal) Range: 30.0-100.0 Comments: Vitamin D deficiency has been defined by the [place] of[place] and an Endocrine Society practice guideline as alevel of serum 25-OH vitamin D less than 20 ng/mL (1,2).The Endocrine Society went on to further define vitamin Dinsufficiency as a level between 21 and 29 ng/mL (2).1. IOM ([place]). 2010. Dietary reference intakes for calcium and D. Amin [place]: The National Academies Press.2. Maycol MF, Nilton MCKEON, Jose WILLIS, et al. Evaluation, treatment, and prevention of vitamin D deficiency: an Endocrine Society clinical practice guideline. JCEM. 2010; 96(7):1911-30. :56 URINALYSIS, W/ MICRO (72539) Comments: PATIENT WAS FASTINGPERFORMED BY: [facility] [id number] Microscopic Examination See below: (Normal) Comments: Microscopic was indicated and was performed. Nitrite, Urine Negative (Normal) Urobilinogen,Semi-Qn 0.2 mg/dL (Normal) Range: 0.2-1.0 Bilirubin Negative (Normal) Occult Blood Negative (Normal) Ketones Negative (Normal) Glucose Negative (Normal) Protein Trace (Normal) WBC Esterase 1+ (Abnormal) Appearance Clear (Normal) Urine-Color Yellow (Normal) pH 5.5 (Normal) Range: 5.0-7.5 Specific [place] 1.027 (Normal) Range: 1.005-1.030 :56 [id number] (72337) Comments: PATIENT WAS FASTINGPERFORMED BY: [facility]6[address] [facility] [id number] AFP, Serum, Tumor Marker 5.3 ng/mL (Normal) Range: 0.0-8.3 Comments: Aris ECLIA methodology :56 CBC W/AUTO DIFF WBC Comments: PATIENT WAS FASTINGPERFORMED BY: [facility]6[address] [facility] [id number] Information: [id number] ([id number]) Immature Grans (Abs) 0.0 {x10E3/uL} (Normal) Range: 0.0-0.1 Immature Granulocytes 0 % (Normal) Baso (Absolute) 0.1 {x10E3/uL} (Normal) Range: 0.0-0.2 Eos (Absolute) 0.2 {x10E3/uL} (Normal) Range: 0.0-0.4 Monocytes(Absolute) 0.5 {x10E3/uL} (Normal) Range: 0.1-0.9 Lymphs (Absolute) 2.0 {x10E3/uL} (Normal) Range: 0.7-3.1 Neutrophils (Absolute) 2.5 {x10E3/uL} (Normal) Range: 1.4-7.0 Basos 1 % (Normal) Eos 4 % (Normal) Monocytes 10 % (Normal) Lymphs 38 % (Normal) Neutrophils 47 % (Normal) Platelets 271 {x10E3/uL} (Normal) Range: 150-379 RDW 13.0 % (Normal) Range: 12.3-15.4 MCHC 34.2 g/dL (Normal) Range: 31.5-35.7 MCH 30.5 pg (Normal) Range: 26.6-33.0 MCV 89 fL (Normal) Range: 79-97 Hematocrit 41.8 % (Normal) Range: 34.0-46.6 Hemoglobin 14.3 g/dL (Normal) Range: 11.1-15.9 RBC 4.69 {x10E6/uL} (Normal) Range: 3.77-5.28 WBC 5.2 {x10E3/uL} (Normal) Range: 3.4-10.8 92-Onz-903370:56 METABOLIC PANEL, COMPREHENSIVE Comments: PATIENT WAS FASTINGPERFORMED BY: [facility] [id number] [facility] [id number] ([id number]) ALT (SGPT) 20 [iU]/L (Normal) Range: 0-32 AST (SGOT) 26 [iU]/L (Normal) Range: 0-40 Alkaline Phosphatase, S 63 [iU]/L (Normal) Range: 39-117 Bilirubin, Total 0.3 mg/dL (Normal) Range: 0.0-1.2 A/G Ratio 1.5 (Normal) Range: 1.1-2.5 Globulin, Total 2.9 g/dL (Normal) Range: 1.5-4.5 Albumin, Serum 4.4 g/dL (Normal) Range: 3.6-4.8 Protein, Total, Serum 7.3 g/dL (Normal) Range: 6.0-8.5 Calcium, Serum 9.3 mg/dL (Normal) Range: 8.7-10.3 Carbon Dioxide, Total 22 mmol/L (Normal) Range: 18-29 Chloride, Serum 103 mmol/L (Normal) Range: 97-108 Potassium, Serum 5.1 mmol/L (Normal) Range: 3.5-5.2 Sodium, Serum 142 mmol/L (Normal) Range: 134-144 BUN/Creatinine Ratio 16 (Normal) Range: 11-26 eGFR If Africn Am 76 mL/min/1.73 (Normal) eGFR If NonAfricn Am 66 mL/min/1.73 (Normal) Creatinine, Serum 0.89 mg/dL (Normal) Range: 0.57-1.00 BUN 14 mg/dL (Normal) Range: 8-27 Glucose, Serum 86 mg/dL (Normal) Range: 65-99 20-Wpe-497761:56 LIPID PANEL (39854) Comments: PATIENT WAS FASTINGPERFORMED BY: [facility] ElmerIauwjq9831 [facility] [id number] LDL/HDL Ratio 3.5 {ratio_units} Range: 0.0-3.2 (Abnormal) Comments: LDL/HDL Ratio Men Women 1/2 Avg.Risk 1.0 1.5 Av g.Risk 3.6 3.2 2X Avg.Risk 6.2 5.0 3X Avg.Risk 8.0 6.1 LDL Cholesterol Calc 158 mg/dL (Abnormal) Range: 0-99 VLDL Cholesterol Layla 32 mg/dL (Normal) Range: 5-40 HDL Cholesterol 45 mg/dL (Normal) Comments: According to ATP-III Guidelines, HDL-C >59 mg/dL is considered anegative risk factor for CHD. Triglycerides 161 mg/dL (Abnormal) Range: 0-149 Cholesterol, Total 235 mg/dL (Abnormal) Range: 100-199 : A1C 5.3 % (Normal) Range: 4.2-6.3 12 27-Hco-157905:12 LIPID VLDL 40 mg/dL (Normal) Range: 5-40 LDL 84 mg/dL (Normal) Range: 0-130 HDL 40 mg/dL (Normal) Comments: Reference RangeHDL <40 mg/dL Low HDL CholesterolHDL >or= 60 mg/dL High HDL Cholesterol TRIG 202 mg/dL (Abnormal) Range: 0-199 Comments: Serum Triglycerides Reference IntervalNormal <150 mg/dLBorderline high 150 - 199 mg/dLHigh 200 - 499 mg/ dLVery High > or = 500 mg/dL CHOL 164 mg/dL (Normal) Comments: <200 mg/dL Eokmmfkjp232-896 mg/dL Borderline>240 mg/dL High Risk :12 MIACRE tMICROCREAT 6.6 {mg/g_CRE} (Normal) MIALB 9.1 mg/L (Normal) CREU 136.8 mg/dL (Normal) :12 PT INR 0.9 (Normal) PTP 12.4 s (Normal) Range: 11.7-14.9 :12 PTT 27.4 s (Normal) Range: 24.1-36.2 :12 TSH 1.50 {uIU/mL} (Normal) Range: 0.358-3.74 :12 UAC Comments: How was Urine Obtained? CLEAN CATCH UMUC 1+ {/hpf} (Normal) UBAC RARE {/hpf} (Normal) UEPIS 0-5 SEEN {/hpf} (Normal) Range: 5-10 URBC 0-5 SEEN {/hpf} (Normal) Range: 0-5 UWBC 0-5 SEEN {/hpf} (Normal) Range: 0-5 NEHA 100 /ul (Abnormal) UOB 25 /ul (Abnormal) LUCAS Negative (Normal) UROBU Normal mg/dL (Normal) uPROTU Negative mg/dL (Normal) BILLIE 6.0 (Normal) Range: 5.0 - 8.0 SGU 1.020 (Normal) Range: 1.002-1.030 KETU Negative mg/dL (Normal) BILIU Negative mg/dL (Normal) GLUR Normal mg/dL (Normal) UCLAR Sl. Cloudy (Normal) UCOL Yellow (Normal) 43-Apl-434482:12 VITD 24.8 ng/mL (Normal) Comments: Vitamin D 25(OH) Status RangeDeficiency <20 ng/mL (50nmol/L)Insuffciency 20 - 30 ng/mL (50 - 75 nmol/L)Sufficiency 30 - 100 ng/mL (75 - 250 nmol/L)Toxicity >100 ng/mL (>250 nmol/L) 90-Qyp-326678:16 URINE CASSANDRA CULTURE-OLEGARIO COL Comments: PATIENT NOT FASTINGPERFORMED BY: [facility] [id number] [facility] [id number] Information: SRC: [id number] COUNT ([id number]) Antimicrobial MIHEAD (Normal) Comments: S = Susceptible; I = Intermediate; R = Resistant P = Positive; N = Negative MICS are expressed in micrograms per mL Antibiotic RSLT#1 RSLT#2 Susceptibility RSLT#3 RSLT#4Amoxicillin/Clavulanic Acid SAmpicillin RCefepime SCeftriaxone SCefuroxime SCephalothin SCiprofloxacin SErtapenem SGentamicin SImipenem SLevofloxacin SNitrofurantoin S Piperacillin RTetracycline STobramycin STrimethoprim/Sulfa S Result 1 Klebsiella Comments: 10,000-25,000 colony forming units per mL pneumoniae (Normal) Urine Final report Culture,Comprehensive (Normal) 28-Vmg-977214:32 Urinalysis, Office (10101) UA - BILIRUBIN Negative (Normal) UA - BLOOD Non Hemolyzed Trace (Normal) UA - GLUCOSE Negative (Normal) UA - KETONES Negative mg/dL (Normal) UA - LEUKOCYTE ESTERASE Trace (Normal) UA - NITRITE Negative (Normal) UA - PH 7.0 (Normal) UA - PROTEIN Negative mg/dL (Normal) UA - SPECIFIC GRAVITY 1.020 (Normal) URINE UROBILINGN OLEGARIO TIMED Normal mg/dL (Normal) 62-Uwo-760033:04 URINE CASSANDRA CULTURE-OLEGARIO COL Comments: PATIENT NOT FASTINGPERFORMED BY: [facility] [id number] [facility] [id number] Information: SRC:UR [id number] COUNT ([id number]) Result 1 BETAGB (Normal) Comments: Beta hemolytic Streptococcus, group B50,000- 100,000 colony forming units per mLPenicillin and ampicillin are drugs of choice for treatment ofbeta-hemolytic streptococcal infections. Susceptibility testi ng ofpenicillins and other beta-lactam agents approved by the FDA fortreatment of beta-hemolytic streptococcal infections need not beperformed routinely because nonsusceptible isolates are extremelyrare in any beta-hemolytic streptococcus and have not been reportedfor Streptococcus pyogenes (group A). (CLSI 2011) Urine Final report (Normal) Culture,Comprehensive 27-Qhs-62737:59 CBCD ANC 2.6 3/uL (Normal) Range: 2.0-7.7 IG% 0.20 % (Normal) Range: 0.0-0.9 Comments: IG% - Immature Granulocytes (promyelocytes, myelocytes,metamyelocytes) >1.0% indicates that a LEFT SHIFT ispresent. B% 0.9 % (Normal) Range: 0-1 E% 4.7 % (Normal) Range: 0-5 M% 11.0 % (Abnormal) Range: 0-10 L% 35.0 % (Normal) Range: 19-41 N% 48.2 % (Normal) Range: 47-70 MPV 9.9 fL (Normal) Range: 6.2-12.0 PLT 272 K/mm3 (Normal) Range: 150-450 RDWSD 43.2 fL (Normal) Range: 35.1-43.9 RDWCV 13.0 % (Normal) Range: 11.6-14.6 MCHC 32.5 g/dL (Normal) Range: 32-36 MCH 29.7 pg (Normal) Range: 27.0-32.0 MCV 91.6 fL (Normal) Range: 81-99 HCT 41.6 % (Normal) Range: 37-47 HGB 13.5 g/dL (Normal) Range: 12.0-15.0 RBC 4.54 {M/mm3} (Normal) Range: 4.2-5.4 WBC 5.3 {k/mm3} (Normal) Range: 4.4-11.0 :59 CMP GAP 7 (Normal) Range: 5-15 CO2 27.0 mmol/L (Normal) Range: 21.0-32.0 CL 108 mmol/L (Abnormal) Range: 98-107 K 4.6 mmol/L (Normal) Range: 3.5-5.1 NA 142 mmol/L (Normal) Range: 136-145 BIT 0.40 mg/dL (Normal) Range: 0.00-1.00 ALT 34 U/L (Normal) Range: 12-78 ALK 62 U/L (Normal) Range: 50-136 AST 25 U/L (Normal) Range: 15-37 CA 9.2 mg/dL (Normal) Range: 8.5-10.1 AG 1.1 {RATIO} (Normal) Range: 0.9-2.4 GLOB 3.7 g/dL (Normal) Range: 2.7-4.2 ALB 3.9 g/dL (Normal) Range: 3.4-5.0 TPROT 7.6 g/dL (Normal) Range: 6.4-8.2 BC 10.0 {RATIO} (Normal) Range: 10-20 GFRAA 58 mL/min (Abnormal) GFR 48 mL/min (Abnormal) CREAT 1.2 mg/dL (Abnormal) Range: 0.6-1.0 BUN 12 mg/dL (Normal) Range: 7-18 GLU 103 mg/dL (Normal) Range: 70-110 :59 LIPID CHOL 259 mg/dL (Abnormal) Comments: <200 mg/dL Pgspxsasq210-503 mg/dL Borderline>240 mg/dL High Risk HDL 39 mg/dL (Abnormal) Comments: Reference RangeHDL <40 mg/dL Low HDL CholesterolHDL >or= 60 mg/dL High HDL Cholesterol LDL 172 mg/dL (Abnormal) Range: 0-130 TRIG 242 mg/dL (Abnormal) Comments: Serum Triglycerides Reference IntervalNormal <150 mg/dLBorderline high 150 - 199 mg/dLHigh 200 - 499 mg/ dLVery High > or = 500 mg/dL VLDL 48 mg/dL (Abnormal) Range: 5-40 :14 PT INR 2.2 (Normal) PTP 22.8 s (Abnormal) Range: 11.9-14.4 :12 PT INR 1.9 (Normal) PTP 20.6 s (Abnormal) Range: 11.9-14.4 :19 PT INR 1.9 (Normal) PTP 20.3 s (Abnormal) Range: 11.9-14.4 :16 PT INR 1.8 (Normal) PTP 19.3 s (Abnormal) Range: 11.9-14.4 :24 CMP GAP 7 (Normal) Range: 5-15 CO2 24.0 mmol/L (Normal) Range: 21.0-32.0 CL 109 mmol/L (Abnormal) Range: 98-107 K 4.0 mmol/L (Normal) Range: 3.5-5.1 NA 140 mmol/L (Normal) Range: 136-145 BIT 0.40 mg/dL (Normal) Range: 0.00-1.00 ALT 38 U/L (Normal) Range: 12-78 ALK 39 U/L (Abnormal) Range: 50-136 AST 34 U/L (Normal) Range: 15-37 CA 10.0 mg/dL (Normal) Range: 8.5-10.1 AG 1.0 {RATIO} (Normal) Range: 0.9-2.4 GLOB 4.0 g/dL (Normal) Range: 2.7-4.2 ALB 3.8 g/dL (Normal) Range: 3.4-5.0 TPROT 7.8 g/dL (Normal) Range: 6.4-8.2 BC 13.6 {RATIO} (Normal) Range: 10-20 GFRAA 64 mL/min (Normal) GFR 53 mL/min (Abnormal) CREAT 1.1 mg/dL (Abnormal) Range: 0.6-1.0 BUN 15 mg/dL (Normal) Range: 7-18 GLU 98 mg/dL (Normal) Range: 70-110 :24 LIPID VLDL 31 mg/dL (Normal) Range: 5-40 LDL 103 mg/dL (Normal) Range: 0-130 HDL 39 mg/dL (Abnormal) Comments: Reference RangeHDL <40 mg/dL Low HDL CholesterolHDL >or= 60 mg/dL High HDL Cholesterol TRIG 156 mg/dL (Normal) Comments: Serum Triglycerides Reference IntervalNormal <150 mg/dLBorderline high 150 - 199 mg/dLHigh 200 - 499 mg/ dLVery High > or = 500 mg/dL CHOL 173 mg/dL (Normal) Comments: <200 mg/dL Claoxxhur242-118 mg/dL Borderline>240 mg/dL High Risk :24 PT INR 2.0 (Normal) PTP 21.4 s (Abnormal) Range: 11.9-14.4 :24 PTHIN 29 pg/mL (Normal) Range: 14-72 Comments: Effective 2012:24 VITD 51.2 ng/mL (Normal) Comments: Vitamin D 25(OH) Status RangeDeficiency <20 ng/mL (50nmol/L)Insufficiency 20 - 30 ng/mL (50 - 75 nmol/L)Sufficiency 30 - 100 ng/mL (75 - 250 nm ol/L)Toxicity >100 ng/mL (250 nmol/L)Effective 2012:04 PT INR 3.3 (Normal) PTP 30.8 s (Abnormal) Range: 11.9-14.4 :37 PT INR 3.9 (Abnormal) Comments: RESULTS CALLED TO ELIANE DAWN 12/07/12 [facility] ARMIJOREPORT READ BACK BY SAME . PTP 34.7 s (Abnormal) Range: 11.9-14.4 :43 PT INR 3.3 (Normal) PTP 30.8 s (Abnormal) Range: 11.9-14.4 :20 PT INR 2.8 (Normal) PTP 26.9 s (Abnormal) Range: 11.9-14.4 :57 PT INR 2.1 (Normal) PTP 21.7 s (Abnormal) Range: 11.9-14.4 :48 PT (Prothrobim Time) ([id number]) Comments: [facility]: [facility] [facility] [id number] Prothrombin Time 17.9 {sec} (Abnormal) Range: 9.1-12.0 INR 1.7 (Abnormal) Range: 0.8-1.2 Comments: Reference interval is for non-anticoagulated patients. . Suggested INR therapeutic range for Vitamin K anta gonist therapy: Standard Dose (moderate intensity therapeutic range): 2.0 - 3.0 Higher intensity therapeutic range 2.5 - 3.5 :17 PT INR 2.4 (Normal) PTP 24.0 s (Abnormal) Range: 11.9-14.4 :19 PT INR 4.4 (Abnormal) PTP 37.8 s (Abnormal) Range: 11.9-14.4 :15 PT INR 2.7 (Normal) PTP 26.7 s (Abnormal) Range: 11.9-14.4 :12 PT INR 3.0 (Normal) PTP 28.5 s (Abnormal) Range: 11.9-14.4 :25 PT INR 1.9 (Normal) PTP 20.5 s (Abnormal) Range: 11.9-14.4 :56 PT INR 1.7 (Normal) PTP 18.8 s (Abnormal) Range: 11.9-14.4 :15 PT Comments: CALL TO INR 1.3 (Normal) PTP 15.1 s (Abnormal) Range: 11.9-14.4 :20 PT (Prothrobim Time) ([id number]) Comments: PATIENT NOT FASTINGPERFORMED BY: [facility] [facility] [id number] Prothrombin Time 41.2 {sec} (Abnormal) Range: 9.1-12.0 INR 4.1 (Abnormal) Range: 0.8-1.2 Comments: Client Requested Flag Reference interval is for non- anticoagulated patients. . Suggested INR therapeutic ra nge for Vitamin K antagonist therapy: Standard Dose (moderate intensity therapeutic range): 2.0 - 3.0 Higher intensity therapeutic range 2.5 - 3.5 [id number] PT INR 3.6 (Abnormal) Comments: RESULTS CALLED TO 08/23/12 1509 MARIO TYLERREPORT READ BACK BY . RESULTS CALLED TO SOLITARIO 08/23/12 1526 CARON RUIZREPORT READ BACK BY SAME . PTP 32.5 s (Abnormal) Range: 11.9-14.4 [id number] Microscopic Examination Comments: PATIENT WAS FASTINGPERFORMED BY: [id number] Jenkins RoadDublin [place] [id number] Bacteria Few (Normal) Mucus Threads Present (Normal) Epithelial Cells (non renal) 0-10 {/hpf} (Normal) Range: 0 - 10 RBC 0-3 {/hpf} (Normal) Range: 0 - 3 WBC 6-10 {/hpf} (Abnormal) Range: 0 - 5 [id number]-[id number]:15 PT INR 2.6 (Normal) PTP 26.0 s (Abnormal) Range: 11.9-14.4 [id number]-[id number]:39 Vitamin D Hydroxy ([id number]) Comments: PATIENT WAS FASTINGPERFORMED BY: [id number] [place] [id number] Vitamin D, 25-Hydroxy 24.0 ng/mL (Abnormal) Range: 30.0-100.0 Comments: Vitamin D deficiency has been defined by the [place] [employer] and an Endocrine Society practice guideline as alevel of serum 25-OH vitamin D less than 20 ng/mL (1,2).The Endocrine Society went on to further define vitamin Dinsufficiency as a level between 21 and 29 ng/mL (2).1. IOM ([place] of [employer]). 2010. Dietary reference intakes for calcium and D. [place]: The National Academies Press.2. Maycol MF, Nilton NC, Jose WILLIS, et al. Evaluation, treatment, and prevention of vitamin D deficiency: an Endocrine Society clinical practice guideline. JCEM. 2010; 96(7):1911-30. :39 URINALYSIS, W/ MICRO (77036) Comments: PATIENT WAS FASTINGPERFORMED BY: [facility]6370 Jenkins RoadAt[facility] [id number] Microscopic Examination See below: (Normal) Nitrite, Urine Negative (Normal) Urobilinogen,Semi-Qn 0.2 mg/dL (Normal) Range: 0.0-1.9 Bilirubin Negative (Normal) Occult Blood 1+ (Abnormal) Ketones Negative (Normal) Glucose Negative (Normal) Protein Negative (Normal) WBC Esterase 1+ (Abnormal) Appearance Clear (Normal) Urine-Color Yellow (Normal) pH 5.5 (Normal) Range: 5.0-7.5 Specific [place] 1.023 (Normal) Range: 1.005-1.030 :39 LIPID PANEL (56902) Comments: PATIENT WAS FASTINGPERFORMED BY: [facility] [id number] LDL/HDL Ratio 1.7 {ratio_units} (Normal) Range: 0.0-3.2 LDL Cholesterol Calc 80 mg/dL (Normal) Range: 0-99 VLDL Cholesterol Layla 28 mg/dL (Normal) Range: 5-40 HDL Cholesterol 46 mg/dL (Normal) Comments: According to ATP-III Guidelines, HDL-C >59 mg/dL is considered anegative risk factor for CHD. Triglycerides 139 mg/dL (Normal) Range: 0-149 Cholesterol, Total 154 mg/dL (Normal) Range: 100-199 :39 CBC WITH MANUAL DIFF (19814) Comments: PATIENT WAS FASTINGPERFORMED BY: [facility] [id number] Immature Grans (Abs) 0.0 {x10E3/uL} (Normal) Range: 0.0-0.1 Immature Granulocytes 0 % (Normal) Range: 0-2 Baso (Absolute) 0.0 {x10E3/uL} (Normal) Range: 0.0-0.2 Eos (Absolute) 0.3 {x10E3/uL} (Normal) Range: 0.0-0.4 Monocytes(Absolute) 0.5 {x10E3/uL} (Normal) Range: 0.1-1.0 Lymphs (Absolute) 1.9 {x10E3/uL} (Normal) Range: 0.7-4.5 Neutrophils (Absolute) 2.5 {x10E3/uL} (Normal) Range: 1.8-7.8 Basos 1 % (Normal) Range: 0-3 Eos 6 % (Normal) Range: 0-7 Monocytes 9 % (Normal) Range: 4-13 Lymphs 37 % (Normal) Range: 14-46 Neutrophils 47 % (Normal) Range: 40-74 Platelets 286 {x10E3/uL} (Normal) Range: 140-415 RDW 12.9 % (Normal) Range: 12.3-15.4 MCHC 33.2 g/dL (Normal) Range: 31.5-35.7 MCH 30.0 pg (Normal) Range: 26.6-33.0 MCV 91 fL (Normal) Range: 79-97 Hematocrit 39.2 % (Normal) Range: 34.0-46.6 Hemoglobin 13.0 g/dL (Normal) Range: 11.1-15.9 RBC 4.33 {x10E6/uL} (Normal) Range: 3.77-5.28 WBC 5.3 {x10E3/uL} (Normal) Range: 4.0-10.5 61-Mwx-998848:39 METABOLIC PANEL, COMPREHENSIVE Comments: PATIENT WAS FASTINGPERFORMED BY: [facility] [id number] [facility] [id number] (00003) ALT (SGPT) 25 [iU]/L (Normal) Range: 0-32 Comments: Please note reference interval change AST (SGOT) 24 [iU]/L (Normal) Range: 0-40 Alkaline Phosphatase, S 38 [iU]/L (Normal) Range: 25-165 Bilirubin, Total 0.3 mg/dL (Normal) Range: 0.0-1.2 A/G Ratio 1.7 (Normal) Range: 1.1-2.5 Globulin, Total 2.7 g/dL (Normal) Range: 1.5-4.5 Albumin, Serum 4.5 g/dL (Normal) Range: 3.6-4.8 Protein, Total, Serum 7.2 g/dL (Normal) Range: 6.0-8.5 Calcium, Serum 9.4 mg/dL (Normal) Range: 8.6-10.2 Carbon Dioxide, Total 23 mmol/L (Normal) Range: 20-32 Chloride, Serum 104 mmol/L (Normal) Range: 97-108 Potassium, Serum 4.7 mmol/L (Normal) Range: 3.5-5.2 Sodium, Serum 139 mmol/L (Normal) Range: 134-144 BUN/Creatinine Ratio 16 (Normal) Range: 11-26 eGFR If Africn Am 47 mL/min/1.73 (Abnormal) eGFR If NonAfricn Am 41 mL/min/1.73 (Abnormal) Creatinine, Serum 1.37 mg/dL (Abnormal) Range: 0.57-1.00 BUN 22 mg/dL (Normal) Range: 8-27 Glucose, Serum 82 mg/dL (Normal) Range: 65-99 :36 PT INR 2.3 (Normal) PTP 23.4 s (Abnormal) Range: 11.9-14.4 :57 PT INR 2.7 (Normal) PTP 26.3 s (Abnormal) Range: 11.9-14.4 :5 Factor II Activity 27 % (Abnormal) Comments: PERFORMED BY: [facility] [address] [id number] Range: 75-130 :23 PT INR 2.2 (Normal) PTP 22.8 s (Abnormal) Range: 11.9-14.4 :47 PT INR 2.6 (Normal) PTP 25.7 s (Abnormal) Range: 11.9-14.4 :26 PT INR 2.1 (Normal) PTP 22.2 s (Abnormal) Range: 11.9-14.4 :43 PT (PROTHROMBIN TIME) ([id number]) Comments: PATIENT NOT FASTINGPERFORMED BY: [facility] [id number] [facility] [id number] Prothrombin Time 47.5 {sec} (Abnormal) Range: 9.1-12.0 INR 4.5 (Abnormal) Range: 0.8-1.2 Comments: Client Requested Flag Reference interval is for non- anticoagulated patients. . Suggested INR therapeutic ra nge for Vitamin K antagonist therapy: Standard Dose (moderate intensity therapeutic range): 2.0 - 3.0 Higher intensity therapeutic range 2.5 - 3.5 8-Glq-258964:15 PT INR 3.7 (Abnormal) Comments: RESULTS CALLED TO DR. PLAZA 03/07/122044 YOSELIN KNIGHTREPORT READ BACK BY . PTP 33.6 s (Abnormal) Range: 11.9-14.4 16-Zcv-634310:18 PT INR 4.7 (Abnormal) PTP 40.1 s (Abnormal) Range: 11.9-14.4 : Factor II Activity 13 % (Abnormal) Comments: PERFORMED BY: [facility] [id number] [place] [address] [id number] BY: [address] [id number] Range: 75-130 :31 Factor V Leiden Mutation Comments: PERFORMED BY: [facility] [id number] [facility] [id number] BY: [address] [id number] Factor V Leiden FVNEG3 (Normal) Comments: Result: Negative (no mutation found) .Factor V Leiden is a specific mutation (R506Q) in the factorV gene that is associated with an increased r isk of venousthrombosis. Factor V Leiden is more resistant toinactivation by activated protein C. As a result, factor Vpersists in the circulation leading to a mild hyper-coagulable state. The Leiden mutation accounts for 90% -95% of APC resistance. Factor V Leiden has been reported inpatients with deep vein thrombosis, pulmonary embolus,central retinal vein occlusion, cerebral sinus thrombosisand hepatic vein thrombosis. Other risk factors to beconsidered in the workup for venous thrombosis include [id number] mutation in the factor II (prothrombin) gene,protein S and C deficiency, and antithromb in deficiencies.Anticardiolipin antibody and lupus anticoagulant analysismay be appropriate for certain patients, as well ashomocysteine levels. .Contact your local [facility] for information on how to orderadditional testing if desired. .Genetic counselors are available for health care* providers to discuss results at [phone] ([phone]). .Methodology:DNA analysis of the Factor V gene was performed by allele-specific PCR followed by gel electrophoresis. The diagnosticsensitivity and specificity is >99% for both. Molecular-based testing is highly accurate, but as in any laboratorytest, diagnostic errors may occur. All test results must becombined with clinical information for the most accurateinterpretation. .References:Harvey Schneider (1996). Clin Lab Med 16: 169-186. .Alonzo Corona, Ph.D.Verenice Fuchs, Ph.D.Ciara Ding, Ph.D.Dinah Riojas, Ph.D.Nataly Mcduffie, Ph.D.Nacho Contreras, Ph.D. . 18-Oph-030494:49 PT INR 3.7 (Abnormal) Comments: RESULTS CALLED TO DELVIN 02/25/12 182GITA DALYREPORT READ BACK BY SAME . PTP 32.9 s (Abnormal) Range: 11.9-14.4 :32 PT INR 2.0 (Normal) PTP 22.2 s (Abnormal) Range: 11.9-14.4 15-Bya-552334:00 PT INR 1.1 (Normal) PTP 14.2 s (Normal) Range: 11.9-14.4 50-Bgu-279119:00 [facility] UMUC 1+ {/hpf} (Normal) UBAC RARE {/hpf} (Normal) UEPIS 0-5 SEEN {/hpf} (Normal) Range: 5-10 URBC 0 SEEN {/hpf} (Normal) Range: 0-5 UWBC 0 SEEN {/hpf} (Normal) Range: 0-5 NEHA NEGATIVE (Normal) UOB NEGATIVE (Normal) LUCAS NEGATIVE (Normal) UROBU 0.2 EU/dl (Normal) Range: 0.2 - 1.0 uPROTU NEGATIVE (Normal) BILLIE 6.5 (Normal) Range: 5.0-8.0 SGU 1.025 (Normal) Range: 1.002-1.030 KETU NEGATIVE mg/dL (Normal) BILIU NEGATIVE (Normal) GLUR NEGATIVE (Normal) UCLAR CLEAR (Normal) UCOL YELLOW (Normal) 17-Nkx-539567:40 PT (Prothrobim Time) (97079) Comments: standing order; PATIENT NOT FASTINGPERFORMED BY: IN[facility] [id number] [place] [id number] Prothrombin Time 41.3 {sec} (Abnormal) Range: 9.1-12.0 INR 4.1 (Abnormal) Range: 0.8-1.2 Comments: Client Requested Flag Reference interval is for non- anticoagulated patients. . Suggested INR therapeutic ra nge for Vitamin K antagonist therapy: Standard Dose (moderate intensity therapeutic range): 2.0 - 3.0 Higher intensity therapeutic range 2.5 - 3.5 14-Tmr-824541:57 CHEST WITH CONTRAST Radiology Report See Note (Normal) Comments: PROCEDURE: CT CHEST WITH CONTRAST REASON FOR EXAM: Female, 66 years old. Chest pain and elevated d-dimer. TECHNIQUE: High resolution transaxial imaging was performed followingintraveno us administr ation of 75ML ml of Isovue 370 contrast material.Multiplanar coronal and sagittal images were reformatted. COMPARISON: None. FINDINGS: There is evidence of a groundglass appearance in the upper lobesb ilaterally. Is also evidence of bibasilar patchy infiltrates, slightlymore prominent on the left side. There is no demonstrated pleuralabnormality. Normal heart and pericardium. There are multiple sma ll lymph nodes within the mediastinum, which arenormal in size and morphology most compatible with reactive lymphhyperplasia. Normal hilar regions. There are multiple bilateralintraluminal filling def ects within the pulmonary arteries. This is inkeeping with bilateral pulmonary emboli. This involves both the upperandlower lobes bilaterally. Normal enhanced thoracic aorta and visualizedgreat vesse ls. There are multi-level degenerative changes of the thoracic spine. There is limited visualization of the liver, spleen, pancreas, adrenalglands, and abdominal aorta without a demonstrated abnormality . IMPRESSION:Multiple bilateral pulmonary emboli.Focal areas of groundglass appearance in the upper lobes, as well asbibasilar patchy infiltrates, slightly worse on the left side. N.B. : Monse Silverman, Patrizia erring Physician, confirmed on 02/16/2012 13:55:35(ET) that the referring physician received the results and did notrequirea verbal consultation. Signed:Kevin Pugh M.D.February 16, 2012 at 1:01:02 PM EDTElectronically Signed GP/GP Professional Interpretation Provided By: [facility], , N.B. : Monse Silverman, Referring Physician, confirmed on 02/16/2012 13:55:35(ET) that the referring physician received the results and did notrequirea verbal consultation. To consult with a radiologist regarding this report, please call our [id number] line @ Dictated on 02/16/12 1228 by Lexy GUADALUPE,GabrieleTranscribed on 02/16/12 1401 by ITS IMPORTSign by Lexy GUADALUPE,Kevin on 02/16/12 1402 Sign by: Lexy GUADALUPE,Kevin 19-Ery-53351:44 Microscopic Examination Comments: PATIENT NOT FASTINGPERFORMED BY: [place] [facility] companyFirst[facility] [place] [id number] Bacteria None seen (Normal) Mucus Threads Present (Normal) Crystal Type Amorphous Sediment (Normal) Crystals Present (Abnormal) Epithelial Cells (non renal) >10 {/hpf} (Abnormal) Range: 0 - 10 RBC 4-10 {/hpf} (Abnormal) Range: 0 - 3 WBC 11-30 {/hpf} (Abnormal) Range: 0 - 5 79-Laz-642374:41 TSH ([id number]) Comments: PATIENT WAS FASTINGPERFORMED BY: [employer] [facility] Global Solutionsrp [id number] EVaultFirstHealth [facility] [place] [id number] TSH 2.700 {uIU/mL} (Normal) Range: 0.450-4.500 39-Awi-06555:44 URINALYSIS, W/ MICRO ([id number]) Comments: PATIENT NOT FASTINGPERFORMED BY: [employer] [facility] Solutionsrp [id number] EVaultFirstHealth [facility] [place] [id number] Microscopic Examination See below: (Normal) Nitrite, Urine Negative (Normal) Urobilinogen,Semi-Qn 0.2 mg/dL (Normal) Range: 0.0-1.9 Bilirubin Negative (Normal) Occult Blood Trace (Abnormal) Ketones Negative (Normal) Glucose Negative (Normal) Protein 1+ (Abnormal) WBC Esterase 1+ (Abnormal) Appearance Turbid (Abnormal) Urine-Color Yellow (Normal) pH 5.0 (Normal) Range: 5.0-7.5 Specific [place] >=1.030 (Abnormal) Range: 1.005-1.030 :41 CBC WITH MANUAL DIFF ([id number]) Comments: PATIENT WAS FASTINGPERFORMED BY: [facility] [id number] [facility] [id number] Immature Grans (Abs) 0.0 {x10E3/uL} (Normal) Range: 0.0-0.1 Immature Granulocytes 0 % (Normal) Range: 0-2 Baso (Absolute) 0.0 {x10E3/uL} (Normal) Range: 0.0-0.2 Eos (Absolute) 0.3 {x10E3/uL} (Normal) Range: 0.0-0.4 Monocytes(Absolute) 1.0 {x10E3/uL} (Normal) Range: 0.1-1.0 Lymphs (Absolute) 1.8 {x10E3/uL} (Normal) Range: 0.7-4.5 Neutrophils (Absolute) 5.9 {x10E3/uL} (Normal) Range: 1.8-7.8 Basos 0 % (Normal) Range: 0-3 Eos 3 % (Normal) Range: 0-7 Monocytes 11 % (Normal) Range: 4-13 Lymphs 20 % (Normal) Range: 14-46 Neutrophils 66 % (Normal) Range: 40-74 Platelets 284 {x10E3/uL} (Normal) Range: 140-415 RDW 12.5 % (Normal) Range: 11.7-15.0 MCHC 33.9 g/dL (Normal) Range: 32.0-36.0 MCH 30.0 pg (Normal) Range: 27.0-34.0 MCV 89 fL (Normal) Range: 80-98 Hematocrit 38.4 % (Normal) Range: 34.0-44.0 Hemoglobin 13.0 g/dL (Normal) Range: 11.5-15.0 RBC 4.34 {x10E6/uL} (Normal) Range: 3.80-5.10 WBC 9.1 {x10E3/uL} (Normal) Range: 4.0-10.5 76-Whl-154532:41 METABOLIC PANEL, COMPREHENSIVE Comments: PATIENT WAS FASTINGPERFORMED BY: [employer] [id number]; appt 02/26/12 (75488) ALT (SGPT) 19 [iU]/L (Normal) Range: 0-40 AST (SGOT) 19 [iU]/L (Normal) Range: 0-40 Alkaline Phosphatase, S 45 [iU]/L (Normal) Range: 25-165 Bilirubin, Total 0.4 mg/dL (Normal) Range: 0.0-1.2 A/G Ratio 1.4 (Normal) Range: 1.1-2.5 Globulin, Total 3.1 g/dL (Normal) Range: 1.5-4.5 Albumin, Serum 4.4 g/dL (Normal) Range: 3.6-4.8 Protein, Total, Serum 7.5 g/dL (Normal) Range: 6.0-8.5 Calcium, Serum 9.6 mg/dL (Normal) Range: 8.6-10.2 Carbon Dioxide, Total 20 mmol/L (Normal) Range: 20-32 Chloride, Serum 104 mmol/L (Normal) Range: 97-108 Potassium, Serum 4.5 mmol/L (Normal) Range: 3.5-5.2 Sodium, Serum 139 mmol/L (Normal) Range: 134-144 BUN/Creatinine Ratio 15 (Normal) Range: 11-26 eGFR If Africn Am 53 mL/min/1.73 (Abnormal) eGFR If NonAfricn Am 46 mL/min/1.73 (Abnormal) Creatinine, Serum 1.23 mg/dL (Abnormal) Range: 0.57-1.00 BUN 18 mg/dL (Normal) Range: 8-27 Glucose, Serum 86 mg/dL (Normal) Range: 65-99 92-Fsl-415092:41 LIPID PANEL ([id number]) Comments: PATIENT WAS FASTINGPERFORMED BY: [facility]In[facility] ElmerPpjbus2906 [facility] [id number] LDL/HDL Ratio 2.2 {ratio_units} (Normal) Range: 0.0-3.2 LDL Cholesterol Calc 93 mg/dL (Normal) Range: 0-99 VLDL Cholesterol Layla 28 mg/dL (Normal) Range: 5-40 HDL Cholesterol 42 mg/dL (Normal) Comments: According to ATP-III Guidelines, HDL-C >59 mg/dL is considered anegative risk factor for CHD. Triglycerides 139 mg/dL (Normal) Range: 0-149 Cholesterol, Total 163 mg/dL (Normal) Range: 100-199 Plan of Care Name Dates Details Instructions Mixed hyperlipidemia : Eprescribed prescriptions (G8553) Indication: Mixed hyperlipidemia BMI 29.0-29.9,adult : Eprescribed prescriptions (G8553) Indication: BMI 29.0-29.9,adult Nonsmoker : Eprescribed prescriptions (G8553) Indication: Nonsmoker [facility]LL[facility] EXAM : Eprescribed prescriptions (G8553) Indication: [facility]LL[facility] EXAM Nonsmoker : Eprescribed prescriptions (G8553) Indication: Nonsmoker Impaired Fasting Glucose : Diet, Exercise, and Wt loss Indication: Impaired Fasting Glucose [facility] Wellness Physical : Eprescribed prescriptions (G8553) Indication: [facility] Wellness Physical Mixed hyperlipidemia : Diet, Exercise, and Wt loss Indication: Mixed hyperlipidemia Calcific tendinitis of left shoulder : Eprescribed prescriptions (G8553) Indication: Calcific tendinitis of left shoulder Mixed hyperlipidemia : Eprescribed prescriptions (G8553) Indication: Mixed hyperlipidemia Mixed hyperlipidemia : Diet, Exercise, and Wt loss Indication: Mixed hyperlipidemia Impaired Fasting Glucose : Eprescribed prescriptions (G8553) Indication: Impaired Fasting Glucose Urinary frequency : follow up for recheck urine 1 week after complete antibiotic Indication: Urinary frequency Urinary frequency : *UTI treatment Indication: Urinary frequency Urinary frequency : Water in diet, brief version Indication: Urinary frequency Impaired Fasting Glucose : Diet, Exercise, and Wt loss Indication: Impaired Fasting Glucose Mixed hyperlipidemia : *Cholesterol - Medication Side Effects Indication: Mixed hyperlipidemia Hypertension, benign : High Blood Pressure (Essential Hypertension) *: blood Indication: Hypertension, benign EMBOLISM/INFARCTION, PULMONARY NEC : Pulmonary Embolism *: blood clot Indication: EMBOLISM/INFARCTION, PULMONARY NEC Mixed hyperlipidemia : High Cholesterol (Hypercholesterolemia) *: blood Indication: Mixed hyperlipidemia Unspecified bacterial pneumonia : *Antibiotic Usage Education - Female Indication: Unspecified bacterial pneumonia Planned Observations LIPID PANEL (63590)Indication: Mixed hyperlipidemia On: 27-Ucf-515595:24 Request ANHKC-YAVCYCVNKYY-OHWEN ([id number])Indication: Fatty liver On: 96-Ths-952579:15 Request CBC W/AUTO DIFF WBC (32431)Indication: Impaired Fasting Glucose On: 17-Qnk-176784:14 Request METABOLIC PANEL, COMPREHENSIVE (40319)Indication: Impaired Fasting Glucose On: :14 Request Metabolic Panel, Basic (63054)Indication: Hypertension, benign On: 76-Ntm-294672:56 Request Comments: 2 weeks HEPATITIS C ANTIBODY (03241)Indication: Encounter for hepatitis C virus screening test for high risk patient On: 53-Kji-516158:36 Request LIPID PANEL (87226)Indication: Mixed hyperlipidemia On: :37 Request METABOLIC PANEL, COMPREHENSIVE (95945)Indication: Impaired Fasting Glucose On: :37 Request MICROALBUMIN: CREATININE RATIO (20144) AND (56234)Indication: Impaired Fasting Glucose On: :37 Request HGB A1C (41048)Indication: Impaired Fasting Glucose On: :37 Request Vitamin D Hydroxy (70010)Indication: Vitamin D deficiency On: :37 Request QMTSM-UJHSTRRLGMT-HSIEU (65629)Indication: Fatty liver On: :36 Request URINE CASSANDRA CULTURE-OLEGARIO COL COUNT (64042)Indication: UTI (urinary tract infection) On: 48-Mal-755663:24 Request Comments: f/u cx post-atb UFQSQ-[id number]-UOYHC (92463)Indication: Fatty liver On: 72-Kbw-534498:03 Request HGB A1C (90054)Indication: Impaired Fasting Glucose On: 51-Kkq-422442:02 Request Vitamin D Hydroxy (66386)Indication: Vitamin D deficiency On: 50-Sxy-656091:40 Request LIPID PANEL (07549)Indication: Mixed hyperlipidemia On: :31 Request METABOLIC PANEL, COMPREHENSIVE (26504)Indication: Mixed hyperlipidemia On: :31 Request METABOLIC PANEL, COMPREHENSIVE (29623)Indication: Mixed hyperlipidemia On: :51 Request LIPID PANEL (70469)Indication: Mixed hyperlipidemia On: :51 Request CBC W/AUTO DIFF WBC (91638)Indication: Hypertension, benign On: 9-Xiy-220012:06 Request METABOLIC PANEL, COMPREHENSIVE (14375)Indication: Hypertension, benign On: 8-Gdn-104461:05 Request LIPID PANEL (77947)Indication: Mixed hyperlipidemia On: 0-Tjp-657678:05 Request Vitamin D Hydroxy (77203)Indication: Vitamin D deficiency On: 5-Gou-793035:55 Request OYDFQ-RTUESGVMQOW-UHKUG (09178)Indication: Fatty liver On: :09 Request PTT (Activated Partial Thromboplastin Time) (64056)Indication: Fatty liver On: :09 Request PT (Prothrobim Time) (55774)Indication: Fatty liver On: :08 Request Vitamin D Hydroxy (04352)Indication: Vitamin D deficiency On: :08 Request TSH (42687)Indication: Osteopenia On: :08 Request URINALYSIS, W/ MICRO (79005)Indication: Hypertension, benign On: 3-Yxu-047734:07 Request LIPID PANEL (73586)Indication: Mixed hyperlipidemia On: :06 Request Hemoglobin Glyclated (HGB A1C) (07356)Indication: Impaired Fasting Glucose On: : Request METABOLIC PANEL, COMPREHENSIVE (39347)Indication: Impaired Fasting Glucose On: :06 Request MICROALBUMIN: CREATININE RATIO (64143) AND (19490)Indication: Impaired Fasting Glucose On: :06 Request URINE CASSANDRA CULTURE-OLEGARIO COL COUNT (14619)Indication: Lower urinary tract infection On: 46-Ebl-007971:01 Request PT (Prothrobim Time) (03441)Indication: EMBOLISM/INFARCTION, PULMONARY NEC On: 26-Jul-2013 Request Urinalysis, Office (05179)Indication: Urinary frequency On: 75-Gxd-063660:08 Request PT (Prothrobim Time) ([id number])Indication: EMBOLISM/INFARCTION, PULMONARY NEC On: 26-Jun-2013 Request ANUUT-DNKVECFGKAM-HVGQU (97025)Indication: Fatty liver On: 76-Qnj-577920:34 Request PTT (Activated Partial Thromboplastin Time) (92242)Indication: Fatty liver On: 95-Vkz-553202:33 Request PT (Prothrobim Time) (22098)Indication: Fatty liver On: 72-Boe-656592:33 Request Vitamin D Hydroxy (38697)Indication: Vitamin D deficiency On: 79-Cks-123988:31 Request MICROALBUMIN: CREATININE RATIO (23592) AND (53635)Indication: Impaired Fasting Glucose On: :31 Request Hemoglobin Glyclated (HGB A1C) (14548)Indication: Impaired Fasting Glucose On: 61-Cpo-501144:30 Request METABOLIC PANEL, COMPREHENSIVE (49489)Indication: Hypertension, benign On: 90-Ivn-834950:29 Request LIPID PANEL (53852)Indication: Mixed hyperlipidemia On: 70-Lme-228827:29 Request PT (Prothrobim Time) ([id number])Indication: EMBOLISM/INFARCTION, PULMONARY NEC On: 27-May-2013 Request PT (Prothrobim Time) (27901)Indication: EMBOLISM/INFARCTION, PULMONARY NEC On: 27-Apr-2013 Request PT (Prothrobim Time) ([id number])Indication: EMBOLISM/INFARCTION, PULMONARY NEC On: 28-Mar-2013 Request PT (Prothrobim Time) ([id number])Indication: EMBOLISM/INFARCTION, PULMONARY NEC On: 26-Feb-2013 Request PT (Prothrobim Time) ([id number])Indication: EMBOLISM/INFARCTION, PULMONARY NEC On: 27-Jan-2013 Request CBC WITH MANUAL DIFF ([id number])Indication: Hypertension, benign On: 13-Grk-162870:37 Request METABOLIC PANEL, COMPREHENSIVE (61461)Indication: Hypertension, benign On: 66-Omi-280049:37 Request LIPID PANEL (32834)Indication: Mixed hyperlipidemia On: 16-Xyo-772464:37 Request PT (Prothrobim Time) ([id number])Indication: EMBOLISM/INFARCTION, PULMONARY NEC On: 28-Dec-2012 Request PT (Prothrobim Time) ([id number])Indication: EMBOLISM/INFARCTION, PULMONARY NEC On: 28-Nov-2012 Request PT (Prothrobim Time) ([id number])Indication: EMBOLISM/INFARCTION, PULMONARY NEC On: 29-Sep-2012 Request METABOLIC PANEL, COMPREHENSIVE (77889)Indication: Hypertension, benign On: 49-Dar-486405:26 Request LIPID PANEL (25481)Indication: Mixed hyperlipidemia On: 04-Dgg-809901:26 Request Vitamin D Hydroxy (62327)Indication: Vitamin D deficiency On: 75-Nsi-631033:25 Request PARATHORMONE (56622)Indication: Osteopenia On: 99-Fxu-528476:13 Request CLOTTING FACTOR II (96891)Indication: Abnormal blood chemistry On: 1-Mhz-579961:17 Request CLOTTING FACTOR II (11072)Indication: EMBOLISM/INFARCTION, PULMONARY NEC On: 70-Lfm-711991:59 Request Factor V Leiden (63709)Indication: EMBOLISM/INFARCTION, PULMONARY NEC On: 61-Syn-000684:59 Request URINALYSIS, W/ MICRO (97858)Indication: Other abnormal finding of urine On: 46-Xss-206699:24 Request D-Dimer (60625)Indication: Chest pain On: 77-Mpa-418227:34 Request Comments: stat Planned Procedures Cartoid DopplerBy: Fast DO, Monse A On: 13-Sep-2018 Intent Fast DO, Monse A DEXA SCAN AXIAL SKELETON (43631)By: On: 13-Sep-2018 Intent Fast DO, Monse A Fast DO, Monse A Comments: december SCREENING DIGITAL TOMOSYNTHESIS OF On: 13-Sep-2018 Intent BREAST (97659)By: Fast DO, Monse A Comments: december Fast DO, Monse A Ultrasound - ThyroidBy: Fast DO, On: 15-Nov-2017 Intent Monse A Fast DO, Monse A SCREENING DIGITAL TOMOSYNTHESIS OF On: 15-Nov-2017 Intent BREAST ([id number])By: Fast DO, Monse A Fast DO, Monse A ELECTROCARDIOGRAM, COMPLETE (ECG) On: 15-Nov-2017 Intent ([id number])By: Fast DO, Monse A Fast DO, Comments: ekg showed normal sinus rhythym, normal axis, no acute st/t wave changes sinus liv Monse A Cartoid DopplerBy: Fast DO, Monse A On: 22-Mar-2017 Intent Fast DO, Monse A Ultrasound - LiverBy: Fast DO, Monse On: 22-Mar-2017 Intent A Fast DO, Monse A Cartoid DopplerBy: Fast DO, Monse A On: 17-Jul-2016 Intent Fast DO, Monse A Comments: bilateral ELECTROCARDIOGRAM, COMPLETE (ECG) On: 17-Jul-2016 Intent ([id number])By: Fast DO, Monse A Fast DO, Comments: ekg showed normal sinus rhythym, normal axis, no acute st/t wave changes Monse A DEXA SCAN AXIAL SKELETON ([id number])By: On: 17-Jul-2016 Intent Fast DO, Monse A Fast DO, Monse A MAMMOGRAM, SCREENING, BOTH BREAST On: 17-Jul-2016 Intent ([id number])By: Fast DO, Monse A Fast DO, Monse A Flu Vaccine (Quadrivalent) [id number]: On: 17-Jul-2016 Intent Fast DO, Monse A Fast DO, Monse A Comments: InfluenzaLot #Lot [id number]/Site-L dltd, IMDose prefilled syringeVIS and ABN signedgiven by:PROSPER jiang ADMINISTRATION OF INFLUENZA VIRUS On: 17-Jul-2016 Intent VACCINE ([id number])By: Fast DO, Monse A Fast DO, Monse A CT - Chest (IV Contrast Needed)By: On: 21-Feb-2016 Intent Fast DO, Monse A Fast DO, Monse A Nuclear Stress Test/Spect On: 21-Feb-2016 Intent Scan/AdenosineBy: Fast DO, Monse A Fast DO, Monse A Radiology - ChestBy: Fast DO, Monse On: 29-Jan-2016 Intent A Fast DO, Monse A Comments: Pa and Lat Nuclear Stress Test/Stress On: 21-Jan-2016 Intent SPECT/TreadmillBy: Fast DO, Monse A Fast DO, Monse A Radiology - Shoulder - LeftBy: Fast On: 20-Jan-2016 Intent DO, Monse A Fast DO, Monse A CT - Chest (IV Contrast Needed)By: On: 20-Jan-2016 Intent Fast DO, Monse A Fast DO, Monse A MAMMOGRAM, SCREENING, BOTH BREAST On: 20-Jan-2016 Intent ([id number])By: Fast DO, Monse A Fast DO, Monse A Ultrasound - LiverBy: Fast DO, Monse On: 20-Jan-2016 Intent A Fast DO, Monse A Bone Density StudyBy: Fast DO, Monse On: 09-Jul-2014 Intent A Fast DO, Monse A BILATERAL MAMMOGRAMS ([id number])By: Fast On: 09-Jul-2014 Intent DO, Monse A Fast DO, Monse A FLU VAC, SPLIT, >3 YEARS, INTRAMUSC On: 09-Jul-2014 Intent ([id number])By: Fast DO, Monse A Fast DO, Monse A ADMINISTRATION OF INFLUENZA VIRUS On: 09-Jul-2014 Intent VACCINE ([id number])By: Fast DO, Monse A Fast DO, Monse A Eprescribed prescriptions ([id number])By: On: 23-Aug-2013 Intent Cherelle Resendiz LPN SPECIMEN HANDLING/TRANSPORT On: 24-Jul-2013 Intent ([id number])By: Angela Ramsey LPN MAMMOGRAM, SCREENING, BOTH BREASTS On: 31-May-2013 Intent ([id number])By: Fast DO, Monse A Fast DO, Monse A DXA, BONE DENSITY, AXIAL SKELETON On: 31-May-2013 Intent ([id number])By: Fast DO, Monse A Fast DO, Monse A Eprescribed prescriptions ([id number])By: On: 31-May-2013 Intent Natty Mayen DXA, BONE DENSITY, AXIAL SKELETON On: 11-Jan-2013 Intent ([id number])By: Fast DO, Monse A Fast DO, Monse A MAMMOGRAM, SCREENING, BOTH BREASTS On: 11-Jan-2013 Intent ([id number])By: Fast DO, Monse A Fast DO, Monse A Eprescribed prescriptions ([id number])By: On: 11-Jan-2013 Intent Chloe Dobson ADMINISTRATION OF PNEUMOCOCCAL On: 02-Sep-2012 Intent VACCINE ([id number])By: Fast DO, Monse A Fast DO, Monse A PNEUM VAC ADLT/IMUMNOSPR, SBC/INTRM On: 02-Sep-2012 Intent ([id number])By: Fast DO, Monse A Fast DO, Monse A FLU VAC, SPLIT, >3 YEARS, INTRAMUSC On: 12-Jul-2012 Intent ([id number])By: Chloe Dobson Comments: Lot:[id number]:prefilledRoute:IMSite:L DltdGiven By:BRENDA signed ADMINISTRATION OF INFLUENZA VIRUS On: 12-Jul-2012 Intent VACCINE ([id number])By: Chloe Dobson Radiology - ChestBy: Herrera LOZANO Monse On: 25-Mar-2012 Intent A Fast DO, Monse A Comments: CANDICE and Giovanny Pulse Oximetry ([id number])By: Herrera LOZANO, On: 22-Feb-2012 Intent Monse A Fast DO, Monse A Comments: 98 CT - ChestBy: Chloe Dobson On: 16-Feb-2012 Intent Comments: PE protocolSTAT with wet read Pulse Oximetry ([id number])By: Herrera LOZANO, On: 15-Feb-2012 Intent Monse A Fast DO, Monse A Comments: 89 before treamtnet Pulse Oximetry ([id number])By: Herrera LOZANO, On: 15-Feb-2012 Intent Monse A Fast DO, Monse A Comments: 97 after treatment Aerosol Treatment ([id number])By: Herrera On: 15-Feb-2012 Intent DO, Monse A Fast DO, Monse A Spirometry ([id number])By: Herrera LOZANO, On: 15-Feb-2012 Intent Monse A Fast DO, Monse A Comments: difficulty doing test - severe airway obstruction Radiology - Chest- PA and LatBy: On: 15-Feb-2012 Intent Fast DO, Monse A Fast DO, Monse A Comments: 4 weeks Eprescribed prescriptions ([id number])By: On: 15-Feb-2012 Intent Fast DO, Monse A Fast DO, Monse A FLU VAC, SPLIT, >3 YEARS, INTRAMUSC On: 15-Feb-2012 Intent ([id number])By: Chloe Dobson Comments: 2011 Instructions Name Dates Details Mixed hyperlipidemia : How to access health information online Indication: Mixed hyperlipidemia Mixed hyperlipidemia : How to access health information online - Detail Indication: Mixed hyperlipidemia Mixed hyperlipidemia : Patient Instructions Indication: Mixed hyperlipidemia BMI 29.0-29.9,adult : How to access health information online Indication: BMI 29.0-29.9,adult BMI 29.0-29.9,adult : How to access health information online - Detail Indication: BMI 29.0-29.9,adult BMI 29.0-29.9,adult : Patient Instructions Indication: BMI 29.0-29.9,adult Nonsmoker : How to access health information online Indication: Nonsmoker Nonsmoker : How to access health information online - Detail Indication: Nonsmoker Nonsmoker : Patient Instructions Indication: Nonsmoker [facility] : How to access health information online Indication: [facility] : How to access health information online - Detail Indication: [facility] : Patient Instructions Indication: [facility] Nonsmoker : How to access health information online Indication: Nonsmoker Nonsmoker : How to access health information online - Detail Indication: Nonsmoker Nonsmoker : Patient Instructions Indication: Nonsmoker [facility] Wellness Physical : How to access health information online Indication: [facility] Physical : How to access health information online - Detail Indication: [facility] Physical [facility] Physical : Patient Instructions Indication: [facility] Calcific tendinitis of left shoulder : How to access health information online Indication: Calcific tendinitis of left shoulder Calcific tendinitis of left shoulder : How to access health information online - Detail Indication: Calcific tendinitis of left shoulder Calcific tendinitis of left shoulder : Patient Instructions Indication: Calcific tendinitis of left shoulder Mixed hyperlipidemia : How to access health information online Indication: Mixed hyperlipidemia Mixed hyperlipidemia : How to access health information online - Detail Indication: Mixed hyperlipidemia Mixed hyperlipidemia : Patient Instructions Indication: Mixed hyperlipidemia Mixed hyperlipidemia : How to access health information online Indication: Mixed hyperlipidemia Mixed hyperlipidemia : How to access health information online - Detail Indication: Mixed hyperlipidemia Mixed hyperlipidemia : Patient Instructions Indication: Mixed hyperlipidemia Impaired Fasting Glucose : Patient Instructions Indication: Impaired Fasting Glucose Lower urinary tract infection : Patient Instructions Indication: Lower urinary tract infection Hypertension, benign : Patient Instructions Indication: Hypertension, benign Mixed hyperlipidemia : Patient Instructions Indication: Mixed hyperlipidemia Hypertension, benign : Patient Instructions Indication: Hypertension, benign Mixed hyperlipidemia : Patient Instructions Indication: Mixed hyperlipidemia Advance Directives Name Dates Details Immunization Registry [place] - Effective on Effective: 13-Sep-201809/13/2018. Expiration date unspecified Encounters Office Visit On: 13-Sep-2018 12:51 Encounter Reason: Follow up for chronic medical issues - The patient feels well with no complaints, has good energy level and is sleeping poorly (uses melatonin). Patient has been compliant with instructions. Current med End: 15-Sep-2018 22:25 ication use: no side effects and compliant with dosing regimen. Patient sleeps 6 hours per night. Nutrition: balanced diet, no supplemental vitamins & iron and low salt diet. The medical issues the patient is following up for include All identified problems below, cardiac issues, gastric reflux, high blood pressure, high cholesterol, osteoporosis/osteopenia and other (sleep disorder, fatty liver). Note for Follow up for chronic medical issues: she is sleeping with the melatonin - some stress daughter with cancer getting chemo- bp is good she doing ok-no gerd tolerting meds - trying to work on exerciseEncounter Diagnosis: Nonsmoker, Impaired Fasting Glucose (790.21), BMI 29.0-29.9,adult, Mixed hyperlipidemia, Encounter for screening mammogram for breast cancer (Renamed from Encounter for screening mammogram for malignant neoplasm of breast), Postmenopausal (Renamed from Post-menopausal), Gastroesophageal reflux disease without esophagitis, Fatty liver, Carotid stenosis, bilateral [facility] Office Visit On: 06-May-2018 10:45 Encounter Reason: Nurse procedure visit - The symptoms have been associated with other.Encounter Diagnosis: Hypertension, benign End: 06-May-2018 10:52 [facility] Office Visit On: 25-Apr-2018 15:27 Encounter Reason: Follow up tests - Date: (04/04 blood work)., [ADDITIONAL REASON] Follow up for chronic medical issues - The patient feels well with no complaints End: 26-Apr-2018 9:55 , has good energy level and is sleeping poorly (some nights doesnt sleep well and other nights will sleep better- old habit. takexs melatonin, wondering if can increae to 10mg). Patient has been complia nt with instructions. Current medication use: no side effects and compliant with dosing regimen. Patient sleeps 6 hours per night. Nutrition: balanced diet, no supplemental vitamins & iron and low s alt diet. The medical issues the patient is following up for include All identified problems below, cardiac issues, gastric reflux, high blood pressure, high cholesterol, osteoporosis/osteopenia and oth er (sleep disorder, fatty liver). Note for Follow up for chronic medical issues: bp is high normal- we had to switch meds but pulse back up and she feeling well - sugar is good and triglycerides impro lyn as she is watching her sugars not exercsing consistently yet so we discussed the importance of that- - she doesnt feel her shoulder is a big issue at this point no gerd Encounter Diagnosis: BMI 29.0-29.9,adult, Nonsmoker, Impaired Fasting Glucose (790.21), Mixed hyperlipidemia, Fatty liver, Hypertension, benign, Gastroesophageal reflux disease without esophagitis, Vitamin D deficiency, Shoulder pain, Sleep disorder (307.40) [facility] Office Visit On: 20-Dec-2017 15:28 Encounter Reason: Follow up Hypertension - Note for Follow up Hypertension: was started on lostartan and taken off atenolol on 11/22- she is on full tab daily and off atenolol- and is working on exercise and 7000 steps End: 20-Dec-2017 21:43 a day- did get little lightheaded when she turned her head too quick- she hiked alot and tolerated that well- bp isgoodEncounter Diagnosis: Nonsmoker, Hypertension, benign, BMI 29.0-29.9,adult, Thyroid nodule, Family history of cancer of the kidney, Sinus bradycardia, Encounter for hepatitis C virus screening test for high risk patient, Mixed hyperlipidemia, Impaired Fasting Glucose (790.21), Fatty liver [facility] Office Visit On: 10-Dec-2017 8:48 Encounter Diagnosis: Thyroid nodule End: 10-Dec-2017 8:52 [facility] Office Visit On: 15-Nov-2017 8:48 Encounter Reason: Physical female exam - General health: feels well with minor complaints, has good energy level and is sleeping well. The patient's appetite is normal. Nutrition: normal/adequate. Exercises 0 days per we End: 09-Dec-2017 20:38 ek. Sleeps on average 6 hours per night. Elimination problems include urinary frequency and diarrhea. Safety measures include appropriate use of safety belts and home smoke detectors. There are no curre nt emotional problems. Note for Physical exam: [facility]- she is taking her bp meds durind day and bp good weight down she wasnt eating was moving thinks has stopped losing nowEncounter Diagnosis: [facility] EXAM, Fatty liver, Vitamin D deficiency, Impaired Fasting Glucose (790.21), Mixed hyperlipidemia, Shoulder pain, Gastroesophageal reflux disease without esophagitis, Encounter for screening mammogram for breast cancer (Renamed from Encounter for screening mammogram f or malignant neoplasm of breast), Sinus bradycardia, Hypertension, benign, Enlarged thyroid gland, Encounter for hepatitis C virus screening test for high risk patient [facility] Phone Encounter On: 26-Oct-2017 9:52 Encounter Diagnosis: Hypertension, benign End: 26-Oct-2017 10:00 [facility] Office Visit On: 22-Mar-2017 11:23 Encounter Reason: Follow up for chronic medical issues - The patient feels well with no complaints, has good energy level and is sleeping poorly (some nights doesnt sleep well and other nights will sleep better- old habi End: 22-Mar-2017 12:54 t. takexs melatonin if needed). Current medication use: no side effects and compliant with dosing regimen. Patient sleeps 6 hours per night. Nutrition: balanced diet, no supplemental vitamins & iron and low salt diet. The medical issues the patient is following up for include All identified problems below, cardiac issues, gastric reflux, high blood pressure, high cholesterol, osteoporosis/osteopen ia and other (sleep disorder, fatty liver). Note for Follow up for chronic medical issues: she taking simvisattin thougth atorvastatin gave her diarrhea but may have pratima magnesium - she taking baby asprin- no shoulder pain feeling well Encounter Diagnosis: Nonsmoker, BMI 27.0-27.9,adult, Osteopenia (733.90), Gastroesophageal reflux disease without esophagitis, Hypertension, benign, Mixed hyperlipidemia, Impaired Fasting Glucose (790.21), Vitamin D deficiency, Fatty liver, Bilateral carotid bruits [facility] Phone Encounter On: 03-Nov-2016 14:29 Encounter Diagnosis: Dysuria End: 03-Nov-2016 14:31 [facility] Phone Encounter On: 03-Nov-2016 13:46 Encounter Diagnosis: Dysuria End: 03-Nov-2016 14:02 [facility] Phone Encounter On: 20-Jul-2016 13:23 Encounter Diagnosis: UTI (urinary tract infection) End: 20-Jul-2016 13:25 [facility] Office Visit On: 17-Jul-2016 13:58 Encounter Reason: Physical female exam - General health: feels well with minor complaints (dysuria and urgency), has good energy level and is sleeping well. The patient's appetite is normal. Nutrition: normal/adequate. E End: 30-Jul-2016 20:43 xercises 0 days per week. Sleeps on average 6 hours per night. Elimination problems include urinary frequency and diarrhea. Safety measures include appropriate use of safety belts and home smoke detecto rs. There are no current emotional problems. Note for Physical exam: [facility]- she is taking her bp meds durind day and bp good weight down she wasnt eating was moving thinks has stopped losing now, [ADDITIONAL REASON] Follow up tests - Diagnostic tests include other (labs). Date: (06/2016). , [ADDITIONAL REASON] Dysuria - The onset of the dysuria has been sudden and has been occurring for ho urs. The course has been decreasing. The dysuria is described as moderate. The quality of the pain is described as a burning sensation The dysuria does not radiate. The symptoms have been associated wit h frequency and urgency, while the symptoms have not been associated with chills, fever or incontinence. Encounter Diagnosis: [facility], Need for prophylactic vaccination and inoculation against influenza (Renamed from Need for immunization against influenza), BMI 27.0-27.9,adult, Nonsmoker, Dysuria, Osteopenia (733.90), Encounter for screening mammogram for breast cancer (Renamed from Encounter for screening mammogram for malignant neoplasm of breast), Postmenopausal (Renamed from Postmenopausal status), Fatty liver, Impaired Fasting Glucose (790.21), Bilateral carotid bruits, Mixed hyperlipidemia, Vitamin D deficiency [facility] Office Visit On: 21-Feb-2016 11:50 Encounter Reason: Follow up tests - Date: (01/2016). Note for Discuss procedure results: needs to stay on simvistatin didnt have stress stest done she didnt realize was supposed to and bp is good - no cp sobEncounter Diagnosis: Nonsmoker, End: 23-Feb-2016 14:48 Mixed hyperlipidemia, Calcific tendinitis of left shoulder, Vitamin D deficiency (268.9), Abnormal EKG (Renamed from Abnormal electrocardiogram), Supraclavicular fossa fullness, Fatty liver [facility] Phone Encounter On: 29-Jan-2016 14:37 Encounter Diagnosis: Supraclavicular fossa fullness End: 29-Jan-2016 14:49 [facility] Office Visit On: 20-Jan-2016 9:37 Encounter Reason: Follow up for chronic medical issues - The patient feels well with no complaints, has good energy level and is sleeping poorly (some nights doesnt sleep well and other nights will sleep better- old habi End: 21-Jan-2016 7:21 t). Current medication use: no side effects and compliant with dosing regimen. Patient sleeps 6 hours per night. Nutrition: balanced diet, no supplemental vitamins & iron and low salt diet. The medi layla issues the patient is following up for include All identified problems below, cardiac issues, gastric reflux, high blood pressure, high cholesterol, osteoporosis/osteopenia and other (sleep disorder , fatty liver). Note for Follow up for chronic medical issues: No ??labs for today but pt is fasting this am.- talked about sleep habits and what to try not take every night after 7-10 days- not exerc iing so start - also she have issue swith left shoulder discomfor twith certain movments and swelling of left supraclavicular fossae- se need labs no chest pain sob dizzy Encounter Diagnosis: Mixed hyperlipidemia, Hypertension, benign, Gastroesophageal reflux disease without esophagitis, Fatty liver, Other abnormal finding of urine, Vitamin D deficiency (268.9), Sleep disorder (307.40), Impaired Fasting Glucose (790.21), Osteopenia (733.90), Encounter for screening mammogram for breast cancer (Renamed from Encounter for screening mammogram for malignant neoplasm of breast), Supraclavicular fossa fullness, Shoulder pain, Abnormal EKG (Renamed from Abnormal electrocardiogram) [facility] Phone Encounter On: 16-Apr-2015 12:27 [facility] End: 16-Apr-2015 12:28 Office Visit On: 04-Sep-2014 10:26 Encounter Reason: Follow up tests - Diagnostic tests include other (labs). Date: (08/31/14). Note for Discuss procedure results: she isnt taking vit d - she doing ok sleeping better no gerd she is going to work harder End: 04-Sep-2014 11:07 on carb restriciton with trigs - and dixcussed prevnar and need to exercise Encounter Diagnosis: Hyperlipidemia, Unspecified (272.4), Vitamin D deficiency (268.9), Osteopenia (733.90), Hypertension,benign(401.1), Fatty Liver (571.8), Carotid Bruits (785.9) [facility] Office Visit On: 09-Jul-2014 10:30 Encounter Reason: Follow up for chronic medical issues - The patient feels well with no complaints, has good energy level and is sleeping poorly (just right now cause her dad last week, otherwise sleeps good) End: 09-Jul-2014 11:14 . Current medication use: no side effects and compliant with dosing regimen. Patient sleeps 7 hours per night. Nutrition: balanced diet, no supplemental vitamins & iron and low salt diet. The medica l issues the patient is following up for include All identified problems below, cardiac issues, gastric reflux, high blood pressure, high cholesterol, osteoporosis/osteopenia and other (sleep disorder, fatty liver). Note for Follow up for chronic medical issues: NO labs done for todays visit.- bp good andweight stable- she doing ok from fathrs - he had car accident and then got pneumnia- she wa nts to get caught backup- sh saw Maryam- for pe and had full workup this summer and she is clear of pe -no gerdEncounter Diagnosis: Impaired Fasting Glucose (790.21), Hypertension,benign(401.1), NEED FOR PROPHYLACTIC VACCINATION AND INOCULATION AGAINST INFLUENZA (V04.81), screening, Osteopenia (733.90), Hyperlipidemia, Unspecified (272.4), GERD (530.81), screening , Fatty Liver (571.8), Vitamin D deficiency (268.9) [facility] Phone Encounter On: 25-Aug-2013 16:00 Encounter Diagnosis: UTI (lower urinary tract infection) (599.0) End: 25-Aug-2013 16:02 [facility] Office Visit On: 23-Aug-2013 13:29 Encounter Reason: UTI - The symptoms have been occurring for 1 month.Encounter Diagnosis: Hematuria (599.70), UTI (lower urinary tract infection) (599.0) End: 23-Aug-2013 13:55 [facility] Annotation/Addendum On: 26-Jul-2013 12:04 Encounter Diagnosis: UTI (lower urinary tract infection) (599.0) End: 26-Jul-2013 12:06 [facility] Office Visit On: 24-Jul-2013 13:02 Encounter Reason: Urinary problems - The onset of the urinary problems has been sudden and they have been occurring in a persistent pattern for 3 days. The course has been recurrent. The urinary problems are described as End: 24-Jul-2013 13:31 mild. The urinary problem is characterized as frequency.Encounter Diagnosis: Urinary Frequency (788.41), Hematuria (599.70) [facility] Office Visit On: 31-May-2013 11:32 Encounter Reason: Follow up for chronic medical issues - The patient feels well with no complaints, has good energy level and is sleeping well. Patient has been compliant with instructions. Current medication use: no kim End: 01-Jun-2013 16:49 e effects and compliant with dosing regimen. Patient sleeps 7 hours per night. Nutrition: balanced diet, no supplemental vitamins & iron and low salt diet. The medical issues the patient is followin g up for include All identified problems below, cardiac issues, gastric reflux, high blood pressure, high cholesterol, osteoporosis/osteopenia and other (sleep disorder, fatty liver). Note for Follow u p for chronic medical issues: she saw maryam- and he took her off coumadin and he told her he felt the risk of bleeding higher than risk of clotting - he did apparently a bunch of clotting studies and was neg- and her lung function was good - she feels well- her breathing is good- got leg aches on chol meds so stopped and went away , [ADDITIONAL REASON] Follow up tests - Date: (05/29/13 blood work). 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 Patient has been compliant with instructions. Current medication use: no kim End: 12-Jan-2013 9:33 e effects and compliant with dosing regimen. Patient sleeps 7 hours per night. Nutrition: balanced diet, no supplemental vitamins & iron and low salt diet. The medical issues the patient is followin g up for include All identified problems below, cardiac issues, gastric reflux, high blood pressure, high cholesterol, osteoporosis/osteopenia and other (sleep disorder, fatty liver). Note for Follow u p for chronic medical issues: she is taking her trazadone and helps her sleep and , [ADDITIONAL REASON] Follow up tests - Diagnostic tests include other (labs). Date: (01/14). Follow up visit with no current symptoms. 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 Date: (08/18/12). Follow up visit with no current symptoms. 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 Patient has been compliant with instru End: 12-Jul-2012 11:28 ctions. Current medication use: no side effects and compliant with dosing regimen. Patient sleeps 7 hours per night. Nutrition: balanced diet, no supplemental vitamins & iron and low salt diet. The medical issues the patient is following up for include All identified problems below, cardiac issues, gastric reflux, high blood pressure, high cholesterol, osteoporosis/osteopenia and other (sleep diso rder, fatty liver). Note for Follow up for chronic medical issues: she increased her coumadin on hr own told her not to do let us adjust- she has added more salads last week and level good- - her weight good, [ADDITIONAL REASON] Follow up tests - Diagnostic tests include other (labs). Date: (02/15/12). 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), Hypertension,benign(401.1), Fatty Liver (571.8), Osteopenia (733.90) [facility] Office Visit On: 05-Apr-2012 9:49 Encounter Reason: F/u 6 weeks - F/u after seeing maryam for PE- she is having full breathing test with taliilia- and he told her no emphysema- the cough and wheeze improving and fatigue improving - bp is good Encounter Diagnosis: End: 07-Apr-2012 22:21 Hypertension,benign(401.1), Hyperlipidemia, Unspecified (272.4), Osteopenia (733.90), EMBOLISM/INFARCTION, 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), Abnormal blood chemistry (790.6) [facility] Phone Encounter On: 04-Apr-2012 16:21 [facility] End: 04-Apr-2012 16:22 Phone Encounter On: 25-Mar-2012 14:50 Encounter Diagnosis: EMBOLISM/INFARCTION, 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) End: 25-Mar-2012 14:55 [facility] Phone Encounter On: 15-Mar-2012 14:27 [facility] End: 15-Mar-2012 14:29 Historical Summary On: 14-Mar-2012 10:42 Encounter Diagnosis: EMBOLISM/INFARCTION, 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 The patient feels well with minor complaints (alot of fatigue- no sob or abd pain anymore), has decreased energy level and is sleeping poorly. Patie End: 22-Feb-2012 21:45 nt has been compliant with instructions. Current medication use: no side effects and compliant with dosing regimen. Patient sleeps 4 hours per night. Impact of disease: emotional impact-moderate. Hospit al procedures performed were other (see print outs). Note for Follow up hospital: chest pain has gone and breahting is stable- just had mammo and was ok- last colonsocopy- no polyps 8 years ago- she canceleed her trip to [place] Encounter Diagnosis: EMBOLISM/INFARCTION, 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), Bacterial pneumonia, unspecified (482.9), abnormal ct of chest [facility] Phone Encounter On: 19-Feb-2012 15:29 [facility] End: 19-Feb-2012 15:38 Phone Encounter On: 18-Feb-2012 14:19 Encounter Diagnosis: EMBOLISM/INFARCTION, 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), Abnormal Urine (791.9) End: 18-Feb-2012 14:30 [facility] Phone Encounter On: 16-Feb-2012 11:17 Encounter Diagnosis: Abnormal Cardiac Test (794.30) End: 16-Feb-2012 11:19 [facility] Office Visit On: 15-Feb-2012 13:59 Encounter Reason: new patient female physical - Last seen more than 1 year ago. General health: feels well with minor complaints (went to ER last night for severe LUQ abd pain- they dx her muscle spasm), has good energy End: 15-Feb-2012 22:08 level and is sleeping well. The patient's appetite is increased. Nutrition: appropriate balanced diet. Exercises 3 days per week. Sleeps on average 6 hours per night. Normal bowel and bladder habits. Sa fety measures include appropriate use of safety belts and home smoke detectors. Current emotional problems include sleep disturbances (takes trazodone prn for sleep). screening, colonoscopy (5 years ago ), screening, mammography (02/2012), screening, Pap smear (over a year ago) and screening, visual acuity (09/2011)., [ADDITIONAL REASON] Abdominal pain - The onset of the pain has been sudden and has been occurring in a persistent pattern for 3 days. The course has been increasing. The pain is described as a severe sharp pain and stabbing. The pain is described as being located in the left upper quadrant. The pain d oes not radiate. There has been no associated bloating, bloody stools, chest pain, constipation, diarrhea, dysuria, fever, heartburn, nausea or vomiting. Note for Abdominal pain: Pt went to ER last ni ght for it- they ruled it as muscle spasms- wafer abrading machine tender to the touch.- she has had this issue since wednesday- left upper quad pain worse last night- she does exercise thought maybe tore it doing somethin g- hurts to breath deep- thinks she is sob- no recent travel- except in oct - no fever or rash- pain radiates into chest and goes into shoulder- she has been going to exercise for 2 years and hien helms isnt improving - she is wheezing- she does have dry hacky cough Encounter Diagnosis: Need for prophylactic vaccination and inoculation against influenza (V04.81), SHINGLES,NEED FOR PROPHYLACTIC VACCINATION AND INOCULATION AGAINST (V05.8), Hypertension,benign(401.1), Hyperlipidemia, Unspecified (272.4), GERD (530.81), Chest pain (786.59), Fatty Liver (571.8), Bacterial pneumonia, unspecified (482.9) [facility] Payers Hum//Medicare Adv PlanMercy Health Allen HospitalMIKE CHAVEZ; a guarantor
== END ==
PROVIDERS: Family Provider Internal Medicine; PCP Internal Medicine; Referring Provider Internal Medicine; Visit Provider Internal Medicine
DX: I65.23 Occlusion and stenosis of bilateral carotid arteries (principal)
CPT/HCPCS: 93880

== ENCOUNTER → 2018-12-13 09:34 | Outpatient (CLI) | payer MEDICARE, OTHER, SELFPAY ==
--- NOTE | 2018-12-13 09:37 | BI_ITS ---
MAMMOGRAPHY - BILATERAL SCREENING REASON FOR EXAM: Female, 73 years old. Routine annual screening examination. PERTINENT HISTORY: Grandmother with breast cancer. TECHNIQUE: Digital bilateral breast criselda (3D mammographic acquisition) in the CC and MLO projections. 2-D mediolateral oblique (MLO) and craniocaudad (CC) views of both breasts were obtained. CAD: Full Field Digital Mammography with Computer Added Detection was performed. COMPARISON: Comparison is made with prior study dated December 08, 2017 and November 19, 2016. FINDINGS: Breast Composition: There are scattered areas of fibroglandular density. There are no dominant masses or suspicious calcifications. Stable appearance of the bilateral axillary lymph nodes. No other significant abnormalities are identified. There has been no significant change since the prior study. BI/SCREENING MAMM (CAD), BILAT IMPRESSION: Stable bilateral screening mammogram. Yearly follow-up mammogram recommended. (A) ASSESSMENT CATEGORY: BIRADS Category 2: Benign. A letter regarding these results will be sent to the patient by the facility within 30 days. Approximately 10% of breast cancers are not detected by mammography. A normal mammogram should not delay biopsy of a clinically suspicious abnormality. [id number] Electronically Signed: Kevin Pugh, at 13:10 EDT , Service support ,
--- NOTE | 2018-12-13 09:39 | BD_ITS ---
STUDY: DUAL ENERGY X-RAY ABSORPTIOMETRY / DXA REASON FOR EXAM: Female, 73 years old. The patient is postmenopausal. No loss of height. TECHNIQUE: Bone Mineral Density (BMD) measurements of lumbar spine and bilateral hips were obtained. COMPARISON: Comparison is made with prior study of November 19, 2016. FINDINGS: Lumbar Spine (L1-L4): g/cm2 (0.938) / T-score (-1.9) / Z-score (-0.2) Findings are suggestive of osteopenia with a moderate fracture risk. Left Femur Total: g/cm2 (0.942) / T-score (-0.5) / Z-score (1.0) Left Femoral Neck: g/cm2 (0.910) / T-score (-0.9) / Z-score (0.9) Right Femur Total: g/cm2 (0.955) / T-score (-0.4) / Z-score (1.2) Right Femoral Neck: g/cm2 (0.923) / T-score (-0.8) / Z-score (1.0) The T-Scores on the most recent prior examination were: Lumbar Spine (L1-L4): There has been worsening of bone density since the previous examination. Left Femur Total: which represents an improvement of 1.3%. Right Femur Total: which represents an improvement of 1.1%. BD/Dexa Bone Density Study IMPRESSION: The patient is considered osteopenic as outlined below according to World Kev Organization (WHO) criteria with a moderate fracture risk. There has been improvement of bone density since the previous examination. Reference Information: The T-score is the number of standard deviations above or below the standard which is normal for young adults at their peak bone mineral density. The World Health Organization (WHO) interprets the T-scores as follows: Above -1 Normal bone density Between -1 and -2.5 Osteopenia Equal to / or below -2.5 Osteoporosis As a practical clinical guideline, osteopenia may be graded as follows: Mild -1 through -1.5 Moderate -1.6 through -2.0 Severe -2.1 through -2.4 The Z-score is the number of standard deviations above or below age-matched controls. A Z-score of less than -1.5 would be considered abnormal. References: 1. NIH Osteoporosis and Related Bone Diseases http://www.osteo.org 2. International Society for Clinical Densitometry http://www.iscd.org 3. National Osteoporosis Foundation http://www.nof.org Electronically Signed: Kevin Pugh, at 15:48 EDT , Service support ,
== END ==
PROVIDERS: Family Provider Internal Medicine; PCP Internal Medicine; Referring Provider Internal Medicine; Visit Provider Internal Medicine
DX: Z78.0 Asymptomatic menopausal state (principal); Z12.31 Encounter for screening mammogram for malignant neoplasm of breast; Z80.3 Family history of malignant neoplasm of breast
CPT/HCPCS: 77063; 77067; 77080

== ENCOUNTER → 2019-02-06 07:50 | Outpatient (CLI) | payer MEDICARE, OTHER, SELFPAY ==
--- NOTE | 2019-02-06 07:57 | US_ITS ---
STUDY: ABDOMINAL ULTRASOUND - RIGHT UPPER QUADRANT REASON FOR VISIT: Female, 73 years old. Hepatic steatosis TECHNIQUE: Ultrasound evaluation of the right upper quadrant was performed with real-time and static marvin-scale imaging. TECHNICAL QUALITY: Adequate. COMPARISON: Abdominal ultrasound 04/01/2017. FINDINGS: Liver: The liver measures 13.8 cm. There is increased echogenicity consistent with fatty infiltration. The bile ducts are within normal limits. There is hepatic color flow. The direction of portal flow is hepatopetal. There is a stable 9 x 6 x 9 mm right hepatic lobe cyst. Gallbladder: Normal distended gallbladder. The gallbladder wall measures 2.6 mm. There is a negative sonographic Jennings's sign. There is no pericholecystic fluid. There are no gallstones. Common Bile Duct (C.B.D.): The common bile duct measures 4.3 mm. Pancreas: Normal size of the head, body and tail of the pancreas. There is normal echogenicity of the pancreas. There is no demonstrated pancreatic mass or cyst. Right Kidney: Normal size of the right kidney. The right kidney measures 9.3 cm. Normal renal cortex. The right cortex measures 1.4 cm. There is no demonstrated renal mass or cyst. There is no right hydronephrosis. US/Liver IMPRESSION: There is persistent fibrofatty infiltration of the liver and a stable subcentimeter right hepatic lobe cyst. Electronically Signed: Adilson Ruggiero, at 10:31 EDT Tel , Service support ,
--- NOTE | 2019-02-06 07:57 | US_ITS ---
STUDY: THYROID ULTRASOUND REASON FOR EXAM: Female, 73 years old. Follow-up thyroid nodule TECHNIQUE: Ultrasound evaluation of the thyroid was performed with real-time and static marvin-scale imaging. COMPARISON: Thyroid ultrasound 12/08/2017. FINDINGS: RIGHT LOBE: The right lobe of the thyroid gland measures 4.3 x 1.7 x 1.5 cm. There is a homogeneous echotexture. There is a mildly hypoechoic solid nodule in the upper pole measuring 3 x 2 x 2 mm., Unchanged since prior exam LEFT LOBE: The left lobe of the thyroid gland measures 4.1 x 1.8 x 1.2 cm. there is a homogeneous echotexture. There are no demonstrated solid, cystic or complex lesions. ISTHMUS: The isthmus measures 3.0 mm. . The regional lymph nodes are normal. US/Thyroid IMPRESSION: 3 mm solid right thyroid nodule is unchanged. Otherwise, normal ultrasound examination of the thyroid. Electronically Signed: Adilson Ruggiero, at 10:22 EDT Tel , Service support ,
== END ==
PROVIDERS: Family Provider Internal Medicine; PCP Internal Medicine; Referring Provider Internal Medicine; Visit Provider Internal Medicine
DX: K76.0 Fatty (change of) liver, not elsewhere classified (principal); E04.1 Nontoxic single thyroid nodule
CPT/HCPCS: 76536; 76705

== ENCOUNTER → 2019-03-27 12:58 | Outpatient (CLI) | payer SELFPAY ==
--- NOTE | 2019-03-27 13:04 | CT_ITS ---
STUDY: CARDIAC CALCIUM SCORING - CT CHEST REASON FOR EXAM: Female, 73 years old. Screening. RADIATION DOSAGE (If Supplied By Facility): CTDIvol = ( 12.19 ) mGy, DLP = ( 170.66 ) mGycm TECHNIQUE: Axial non-enhanced images were acquired through the heart for the sole purpose of measuring coronary artery calcium. Individualized dose optimization techniques were used for this CT. COMPARISON: None. FINDINGS: Visualized surrounding anatomy: Normal. Left Main Coronary Artery: 0 Left Anterior Descending Artery: 0 Left Circumflex Artery: 0 Right Coronary Artery: 0 Total Calcium Score: 0 CT/Limited Chest CT w/CCTA IMPRESSION: A Calcium Score of 0 places the patient in the approximate 0 percentile, based on the LAL data calculator. Please go to: [email or web address]-[facility].org/Calcium/input.aspx , for a description of the calculator. Electronically Signed: Everton Olmstead, at 14:05 EDT Tel , Service support ,
[2019-03-27 13:12] VITALS: BP 131/21; PULSE 48; RESP 16; O2SAT 95; BMI 28.8
--- NOTE | 2019-03-27 17:40 | CA.SCORE ---
Calcium Scoring Date of Study:: 03/27/19 Coronary Calcium Scoring: High-resolution Computed Tomographic imaging of the chest was performed on [03/27/2019], with particular attention paid to the coronary arteries. Images from the examination were analyzed for the presence and extent of coronary artery calcification , using coronary calcium quantification software. The patient tolerated the procedure well and there were no complications. The results of the coronary calcification analysis are provided below. - Findings Left Main (LM): 0 Left Anterior Descending (LAD): 0 Left Circumflex (LCX): 0 Right Coronary Artery (RCA): 0 Total Agatston Score: 0 Percentile Rankin - Conclusion Calcium Scoring Interpretation: Calcium Score Interpretation 0 No identifiable atherosclerotic plaque. Very low cardiovascular disease risk. <5% chance of presence coronary artery disease A Negative Examination 1-10 Minimal Plaque burden. Significant coronary artery disease very unlikely. 11-100 Mild plaque burden. Likely mild or minimal coronary atherosclerosis. 101-400 Moderate plaque burden Moderate non-obstructive coronary artery disease highly likely. Over 400 Extensive plaque burden. High likelihood of at least one significant coronary stenosis (>50% diameter) Calcium Score: 0 Negative Examination - The above is suggestive of no detectable coronary calcification noted. A full evaluation of cardiac risk should include an assessment of all conventional risk factors.
== END ==
PROVIDERS: Family Provider Internal Medicine; PCP Internal Medicine; Referring Provider Internal Medicine; Visit Provider Internal Medicine
DX: E78.5 Hyperlipidemia, unspecified (principal)
CPT/HCPCS: 75571; 76380

== ENCOUNTER → 2019-05-03 11:46 | Outpatient (CLI) | payer MEDICARE, OTHER, SELFPAY ==
[2019-03-27 13:12] VITALS: BMI 28.8
--- NOTE | 2019-05-03 12:00 | RAD_ITS ---
STUDY: X-RAY - RIGHT WRIST REASON FOR EXAM: Female, 73 years old. Pain at base of thumb, cyst. TECHNIQUE: 3 view(s) of the wrist were obtained. COMPARISON: None. FINDINGS: Normal visualized distal radius and ulna. Normal radiocarpal articulation. Normal distal radioulnar articulation. There is some narrowing of the articular joint space between distal scaphoid and the trapezium, as well as minor cortical spurring from the lateral margin of the distal scaphoid. Otherwise, normal carpal bones and carpal articulations. Normal carpometacarpal articulation of the thumb. Normal second through fifth carpometacarpal articulations. Normal visualized metacarpal bones. The soft tissue structures are unremarkable. There is no demonstrated osseous destructive lesion. There is no demonstrated acute fracture. 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 Electronically Signed: Samuel Dawson MD at 13:09 EDT , Service support ,
== END ==
PROVIDERS: Family Provider Internal Medicine; PCP Internal Medicine; Referring Provider Internal Medicine; Visit Provider Internal Medicine
DX: M25.531 Pain in right wrist (principal)
CPT/HCPCS: 73110

== ENCOUNTER → 2019-12-15 10:09 | Outpatient (CLI) | payer MEDICARE, OTHER, SELFPAY ==
[2019-03-27 13:12] VITALS: BMI 28.8
--- NOTE | 2019-12-15 10:19 | BI_ITS ---
MAMMOGRAPHY - BILATERAL SCREENING REASON FOR EXAM: Female, 74 years old. Routine annual screening examination. PERTINENT HISTORY: Grandmother with breast cancer. TECHNIQUE: Digital bilateral breast deidra (3D mammographic acquisition) in the CC and MLO projections. 2-D mediolateral oblique (MLO) and craniocaudad (CC) views of both breasts were obtained. CAD: Full Field Digital Mammography with Computer Added Detection was performed. COMPARISON: Comparison is made with prior study December 13, 2018 and December 08, 2017. FINDINGS: Breast Composition: There are scattered areas of fibroglandular density. There are no dominant masses or suspicious calcifications. Stable benign-appearing bilateral axillary lymph nodes. No other significant abnormalities are identified. There has been no significant change since the prior study. BI/SCREEN MAMM (CAD) W/DEIDRA BILAT IMPRESSION: Stable bilateral screening mammogram. Yearly follow-up mammogram recommended. (A) ASSESSMENT CATEGORY: BIRADS Category 2: Benign. A letter regarding these results will be sent to the patient by the facility within 30 days. Approximately 10% of breast cancers are not detected by mammography. A normal mammogram should not delay biopsy of a clinically suspicious abnormality. [id number] Electronically Signed: Kevin Pugh, at 12:38 EDT , Service support ,
--- NOTE | 2019-12-15 10:59 | CDU_ITS ---
Reason For Study: Carotid stenosis Rt. Velocities/BP Lt. Velocities/BP Prox CCA 91.7/20 cm/sec. Prox CCA 108.4/20 cm/sec. Mid CCA 100.8/20 cm/sec. Mid CCA 90/20 cm/sec. Dist CCA 90.4/14.7 cm/sec. Dist CCA 74.1/21.2 cm/sec. Prox ICA 79/18.8 cm/sec. Prox ICA 57.5/16.8 cm/sec. Mid ICA 76.1/17.9 cm/sec. Mid ICA 121.9/32.3 cm/sec. Dist ICA 97.1/26.7 cm/sec. Dist ICA 148.5/55.3 cm/sec. Rt. ICA/CCA = 1.1. Lt. ICA/CCA = 1.6. Prox ECA 139.4/7.9 cm/sec. Prox ECA 108.4/9 cm/sec. Rt. Vert. 40/9.7 cm/sec. Lt. Vert. 44.3 cm/sec. Right Extracranial There is intimal thickening but no significant atherosclerotic plaque noted in the right common carotid artery. There is heterogeneous, irregular atherosclerotic plaque noted in the right internal carotid artery. There is intimal thickening but no significant atherosclerotic plaque noted in the right external carotid artery. Antegrade flow is noted in the right vertebral artery. Abnormal waveform noted in the right vertebral artery. Left Extracranial There is homogeneous, smooth atherosclerotic plaque noted in the left common carotid artery. There is heterogeneous, irregular atherosclerotic plaque noted in the left internal carotid artery. There is no significant atherosclerotic plaque noted in the left external carotid artery. Antegrade flow is noted in the left vertebral artery. Abnormal waveform noted in the left vertebral artery. Procedure Carotid Duplex [id number]. Exam performed in department. Interpretation Summary Mild (<50%) stenosis right extracranial internal carotid. Mild (<50%) stenosis left extracranial internal carotid. Flow within the right verterbral artery is antegrade. Left verterbral with abnormal flow. Ordering Physician: Monse Silverman Referring Physician: Monse Silverman Performed By: Sophia Rincon RVT
== END ==
PROVIDERS: PCP Internal Medicine; Referring Provider Internal Medicine; Visit Provider Internal Medicine
DX: Z12.31 Encounter for screening mammogram for malignant neoplasm of breast (principal); I65.23 Occlusion and stenosis of bilateral carotid arteries
CPT/HCPCS: 77063; 77067; 93880

== ENCOUNTER → 2020-06-20 07:56 | Outpatient (CLI) | payer MEDICARE, OTHER, SELFPAY ==
[2019-03-27 13:12] VITALS: BMI 28.8
--- NOTE | 2020-06-20 07:58 | US_ITS ---
STUDY: ABDOMINAL ULTRASOUND - RIGHT UPPER QUADRANT REASON FOR VISIT: Female, 74 years old FATTY LIVER TECHNIQUE: Ultrasound evaluation of the right upper quadrant was performed with real-time and static marvin-scale imaging. TECHNICAL QUALITY: Adequate. COMPARISON: Comparison is made with prior study dated 02/06/2019. FINDINGS: Liver: The liver measures 10.8 cm. There is increased echogenicity consistent with fatty infiltration. The bile ducts are within normal limits. There is hepatic color flow. The direction of portal flow is hepatopetal. There is a 1 cm x 0.8 cm x 0.7 cm cyst in the right lobe. Gallbladder: Normal distended gallbladder. The gallbladder wall measures 2.1 mm. There is a negative sonographic Jennings''s sign. There is no pericholecystic fluid. There are no gallstones. Common Bile Duct (C.B.D.): The common bile duct measures 2.3 mm. Pancreas: Normal size of the head, body and tail of the pancreas. There is normal echogenicity of the pancreas. There is no demonstrated pancreatic mass or cyst. Right Kidney: Normal size of the right kidney. The right kidney measures 9 cm x 4.2 cm x 4.7 cm. Normal renal cortex. The right cortex measures 1.3 cm. There is no demonstrated renal mass or cyst. There is no right hydronephrosis. US/Liver IMPRESSION: Fatty infiltration of the liver. Stable cyst in the right lobe. Electronically Signed: Kevin Pugh, at 12:29 EDT , Service support ,
--- NOTE | 2020-06-20 07:59 | US_ITS ---
STUDY: THYROID ULTRASOUND REASON FOR EXAM: Female, 74 years old. NODULE TECHNIQUE: Ultrasound evaluation of the thyroid was performed with real-time and static marvin-scale imaging. COMPARISON: Comparison is made with prior examination dated 02/06/2019. FINDINGS: RIGHT LOBE: The right lobe of the thyroid gland is mildly enlarged and measures 5.2 cm x 1.5 cm x 1.6 cm. There is a homogeneous echotexture. There is a 4 mm x 4 mm x 4 mm hypoechoic solid nodule in the upper pole of the right lobe. This is essentially unchanged. LEFT LOBE: The left lobe of the thyroid gland measures 4 cm x 1.3 cm x 1.4 cm. There is a homogeneous echotexture. There are no demonstrated solid, cystic or complex lesions. ISTHMUS: The isthmus measures 3.0 mm. The regional lymph nodes are normal. US/Thyroid IMPRESSION: Stable 4 mm x 4 mm x 4 mm hypoechoic solid nodule in the upper pole of the right lobe of the thyroid. Electronically Signed: Kevin Pugh, at 12:25 EDT , Service support ,
--- NOTE | 2020-06-20 08:43 | MRI_ITS ---
STUDY: MRI BRAIN WITH AND WITHOUT CONTRAST REASON FOR EXAM: Female, 74 years old. imbalance, dizziness TECHNIQUE: Standardized multiplanar fat and water weighted pulse sequences were obtained. IV DOTAREM 15CC was administered for the contrast portion of the examination. COMPARISON: 09/18/2010 FINDINGS: Normal size of the ventricles and extra-axial spaces for the patient''s age. Normal white matter tracts of the supratentorial brain. There is no evidence for recent intracranial ischemia or other cause of cytotoxic edema on diffusion weighted imaging (DWI). Normal T2* images of the brain without demonstrated susceptibility artifact. There is no demonstrated hemosiderin stain. Normal bilateral basal ganglia. Normal thalami. There is no extra-axial fluid accumulation. Normal flow voids within the major intracranial circulation suggesting patency by spin echo criteria. Normal venous enhancement. There is no enhancing intra-axial or extra-axial abnormality. In particular, no contrast enhancement of the previously described hyperintensity of the periapical white matter of the right parietal lobe felt to represent the microangiopathic gliosis from chronic hypertension or metabolic disease. Normal sella turcica, pituitary gland, infundibular stalk, optic chiasm and hypothalamus. Normal tectal plate and pineal gland. Normal midbrain, chintan and medulla. Normal cerebellum. Normal basal cisterns. Normal bilateral temporal bones. Normal bilateral internal auditory canals. No demonstrated orbital abnormality, within the constraints of a routine brain study. Normal visualized paranasal sinuses. Normal calvarium and skull base. Normal visualized soft tissue structures. Normal visualized upper cervical spine. MRI/Brain W/WO Contrast IMPRESSION: Normal unenhanced and enhanced MRI of the brain. Electronically Signed: Anil Diaz MD at 10:26 EDT Tel , Service support ,
== END ==
PROVIDERS: PCP Internal Medicine; Referring Provider Internal Medicine; Visit Provider Internal Medicine
DX: K76.0 Fatty (change of) liver, not elsewhere classified (principal); E04.1 Nontoxic single thyroid nodule; R26.89 Other abnormalities of gait and mobility
CPT/HCPCS: 70553; 76536; 76705; A9575

== ENCOUNTER → 2020-12-18 09:56 | Outpatient (CLI) | payer MEDICARE, OTHER, SELFPAY ==
[2019-03-27 13:12] VITALS: BMI 28.8
--- NOTE | 2020-12-18 09:59 | CDU_ITS ---
Reason For Study: Carotid Stenosis Rt. Velocities/BP Lt. Velocities/BP Prox CCA 56/10 cm/sec. Prox CCA 103/20 cm/sec. Mid CCA 71/13 cm/sec. Mid CCA 81/19 cm/sec. Dist CCA 61/13 cm/sec. Dist CCA 80/19 cm/sec. Prox ICA 64/16 cm/sec. Prox ICA 100/24 cm/sec. Mid ICA 68/17 cm/sec. Mid ICA 133/36 cm/sec. Dist ICA 95/27 cm/sec. Dist ICA 103/27 cm/sec. Rt. ICA/CCA = 1.3. Lt. ICA/CCA = 1.6. Prox ECA 98/3 cm/sec. Prox ECA 133/10 cm/sec. Rt. Vert. 61/6 cm/sec. Lt. Vert. 29/8 cm/sec. Right Extracranial There is heterogeneous, irregular atherosclerotic plaque noted in the right common carotid artery. There is heterogeneous, irregular atherosclerotic plaque noted in the right internal carotid artery. There is intimal thickening but no significant atherosclerotic plaque noted in the right external carotid artery. Antegrade flow is noted in the right vertebral artery. Left Extracranial There is heterogeneous, smooth atherosclerotic plaque noted in the left common carotid artery. There is heterogeneous, irregular atherosclerotic plaque noted in the left internal carotid artery. There is heterogeneous, irregular atherosclerotic plaque noted in the left external carotid artery. Antegrade flow is noted in the left vertebral artery. Procedure Carotid Duplex [id number]. Exam performed in department. Interpretation Summary Mild (<50%) stenosis right extracranial internal carotid. Moderate (50-69%) stenosis left extracranial internal carotid. Flow within the vertebral arteries is antegrade bilaterally. Ordering Physician: Monse Silverman Referring Physician: Monse Silverman Performed By: Jeniffer Serna, KIERAN, RVT
--- NOTE | 2020-12-18 10:31 | BI_ITS ---
MAMMOGRAPHY - BILATERAL SCREENING REASON FOR EXAM: Female, 75 years old. Routine annual screening examination. PERTINENT HISTORY: Grandmother with breast cancer. TECHNIQUE: Digital bilateral breast deidra (3D mammographic acquisition) in the CC and MLO projections. 2-D mediolateral oblique (MLO) and craniocaudad (CC) views of both breasts were obtained. CAD: Full Field Digital Mammography with Computer Added Detection was performed. COMPARISON: Comparison is made with prior study dated 12/15/2019 and 12/13/2018. FINDINGS: Breast Composition: There are scattered areas of fibroglandular density. There are no dominant masses or suspicious calcifications. Stable benign-appearing bilateral axillary lymph nodes. No other significant abnormalities are identified. There has been no significant change since the prior study. BI/SCRN MAMM (CAD)W/DEIDRA BILAT IMPRESSION: Stable bilateral screening mammogram. Yearly follow-up mammogram recommended. (A) ASSESSMENT CATEGORY: BIRADS Category 2: Benign. A letter regarding these results will be sent to the patient by the facility within 30 days. Approximately 10% of breast cancers are not detected by mammography. A normal mammogram should not delay biopsy of a clinically suspicious abnormality. [id number] Electronically Signed: Kevin Pugh MD at 12:29 EDT , Service support ,
--- NOTE | 2020-12-18 10:51 | BD_ITS ---
STUDY: DUAL ENERGY X-RAY ABSORPTIOMETRY / DXA REASON FOR EXAM: Female, 75 years old. Z780. The patient is postmenopausal. Loss of height. TECHNIQUE: Bone Mineral Density (BMD) measurements of lumbar spine and bilateral hips were obtained. COMPARISON: Comparison is made with prior study dated 12/13/2018. FINDINGS: Lumbar Spine (L1-L4): g/cm2 (0.923) / T-score (-2.1) / Z-score (-0.3) Findings are suggestive of osteopenia with a high fracture risk. Left Femur Total: g/cm2 (0.930) / T-score (-0.6) / Z-score (1.1) Left Femoral Neck: g/cm2 (0.927) / T-score (-0.8) / Z-score (1.1) Right Femur Total: g/cm2 (0.923) / T-score (-0.7) / Z-score (1.0) Right Femoral Neck: g/cm2 (0.949) / T-score (-0.6) / Z-score (1.2) The T-Scores on the most recent prior examination were: Lumbar Spine (L1-L4): There has been worsening of bone density since the previous examination. Left Femur Total: which represents a worsening of 1.3%. Right Femur Total: which represents a worsening of 3.4%. BD/Dexa Bone Density Study IMPRESSION: The patient is considered osteopenic as outlined below according to World Kev Organization (WHO) criteria with a high fracture risk. There has been worsening of bone density since the previous examination. Reference Information: The T-score is the number of standard deviations above or below the standard which is normal for young adults at their peak bone mineral density. The World Health Organization (WHO) interprets the T-scores as follows: Above -1 Normal bone density Between -1 and -2.5 Osteopenia Equal to / or below -2.5 Osteoporosis As a practical clinical guideline, osteopenia may be graded as follows: Mild -1 through -1.5 Moderate -1.6 through -2.0 Severe -2.1 through -2.4 The Z-score is the number of standard deviations above or below age-matched controls. A Z-score of less than -1.5 would be considered abnormal. References: 1. NIH Osteoporosis and Related Bone Diseases www osteo.org 2. International Society for Clinical Densitometry www iscd.org 3. National Osteoporosis Foundation www nof.org Electronically Signed: Kevin Pugh MD at 15:13 EDT , Service support ,
== END ==
PROVIDERS: PCP Internal Medicine; Referring Provider Internal Medicine; Visit Provider Internal Medicine
DX: Z12.31 Encounter for screening mammogram for malignant neoplasm of breast (principal); Z78.0 Asymptomatic menopausal state; I65.23 Occlusion and stenosis of bilateral carotid arteries
CPT/HCPCS: 77063; 77067; 77080; 93880

== ENCOUNTER → 2021-08-07 09:49 | Outpatient (CLI) | payer MEDICARE, OTHER, SELFPAY ==
--- NOTE | 2021-08-07 09:51 | US_ITS ---
STUDY: THYROID ULTRASOUND REASON FOR EXAM: Female, 75 years old. Abnormal thyroid function test TECHNIQUE: Ultrasound evaluation of the thyroid was performed with real-time and static marvin-scale imaging. COMPARISON: None. FINDINGS: RIGHT LOBE: The right lobe of the thyroid gland measures 4.6 x 1.5 x 1.6 cm. There is a homogeneous echotexture. There are no demonstrated solid, cystic or complex lesions. LEFT LOBE: The left lobe of the thyroid gland measures 3.9 x 1.5 x 1.4 cm. There is a homogeneous echotexture. There are no demonstrated solid, cystic or complex lesions. ISTHMUS: The isthmus measures 2.0 cm. The regional lymph nodes are normal. US/Thyroid IMPRESSION: Normal ultrasound examination of the thyroid. Electronically Signed: Samuel Rothman MD at 16:55 EDT , Service support ,
--- NOTE | 2021-08-07 09:51 | US_ITS ---
STUDY: ABDOMINAL ULTRASOUND - RIGHT UPPER QUADRANT REASON FOR VISIT: Female, 75 years old FATTY LIVER TECHNIQUE: Ultrasound evaluation of the right upper quadrant was performed with real-time and static marvin-scale imaging. TECHNICAL QUALITY: Adequate. COMPARISON: Comparison is made with prior examination dated 06/20/2020. FINDINGS: Liver: The liver measures 13.9 cm. There is increased echogenicity consistent with fatty infiltration. The bile ducts are within normal limits. There is hepatic color flow. The direction of portal flow is hepatopetal. There is no demonstrated mass lesion. Gallbladder: Normal distended gallbladder. The gallbladder wall measures 1.7 mm. There is a negative sonographic Jennings''s sign. There is no pericholecystic fluid. There are no gallstones. Common Bile Duct (C.B.D.): The common bile duct measures 3.0 mm. Pancreas: Normal size of the head, body and tail of the pancreas. There is increased echogenicity of the pancreas. There is no demonstrated pancreatic mass or cyst. Right Kidney: Normal size of the right kidney. The right kidney measures 9.5 cm x 4.8 cm x 4.3 cm. Normal renal cortex. The right cortex measures 1.3 cm. There is no demonstrated renal mass or cyst. There is no right hydronephrosis. US/Liver IMPRESSION: Fatty infiltration of the liver. There has been no change. Electronically Signed: Kevin Pugh MD at 14:46 EDT , Service support ,
== END ==
PROVIDERS: PCP Internal Medicine; Referring Provider Internal Medicine; Visit Provider Internal Medicine
DX: K76.0 Fatty (change of) liver, not elsewhere classified (principal); E04.1 Nontoxic single thyroid nodule
CPT/HCPCS: 76536; 76705

== ENCOUNTER 2021-12-19 10:51 | Outpatient (CLI) | payer MEDICARE, OTHER, SELFPAY ==
--- NOTE | 2021-12-19 10:54 | CDU_ITS ---
Reason For Study: carotid stenosis Rt. Velocities/BP Lt. Velocities/BP Prox CCA 86.9/12.5 cm/sec. Prox CCA 109.1/15.7 cm/sec. Mid CCA 86.9/15.1 cm/sec. Mid CCA 93.7/15.7 cm/sec. Dist CCA 65.1/10.3 cm/sec. Dist CCA 97.0/19.0 cm/sec. Prox ICA 88.0/9.5 cm/sec. Prox ICA 111.3/21.6 cm/sec. Mid ICA 82.6/15.0 cm/sec. Mid ICA 115.6/26.1 cm/sec. Dist ICA 100.8/22.3 cm/sec. Dist ICA 157.6/31.6 cm/sec. Rt. ICA/CCA = 100.8/86.9=1.2. Lt. ICA/CCA = 157.6/109.1=1.4. Prox ECA 164.4/0.0 cm/sec. Prox ECA 175.9/4.2 cm/sec. Rt. Vert. 44.6/8.7 cm/sec. Lt. Vert. 43.8/12.0 cm/sec. Right Extracranial There is homogeneous, smooth atherosclerotic plaque noted in the right common carotid artery. There is homogeneous, irregular atherosclerotic plaque noted in the right internal carotid artery. There is homogeneous, smooth atherosclerotic plaque noted in the right external carotid artery. Antegrade flow is noted in the right vertebral artery. Left Extracranial There is homogeneous, smooth atherosclerotic plaque noted in the left common carotid artery. There is heterogeneous, irregular atherosclerotic plaque noted in the left internal carotid artery. There is homogeneous, smooth atherosclerotic plaque noted in the left external carotid artery. Antegrade flow is noted in the left vertebral artery. Procedure Carotid Duplex [id number]. This is a Carotid Duplex examination using B-mode, color flow and specral Doppler. Exam performed in department. VL/Carotid Duplex Ultrasound Interpretation Summary Mild (<50%) stenosis right extracranial internal carotid. Mild (<50%) stenosis left extracranial internal carotid. Flow within the vertebral arteries is antegrade bilaterally. Ordering Physician: Monse Silverman Referring Physician: Monse Silverman Performed By: Chelsey Stanley, KIERAN, RVT
--- NOTE | 2021-12-19 11:24 | BI_ITS ---
MAMMOGRAPHY - BILATERAL SCREENING 3-D TOMOSYNTHESIS REASON FOR EXAM: Female, 76 years old. SCREENING PERTINENT HISTORY: No significant family history. TECHNIQUE: 2-D mammograms and 3-D Tomosynthesis of the breast (s) were performed. CAD was performed. COMPARISON: 12/18/2020 FINDINGS: The breast composition is heterogeneously dense that can obscure small breast masses. Scattered benign calcifications are seen. No dense spiculated masses or suspicious microcalcifications are identified. No architectural distortion is identified. There is no skin thickening or retraction. There has been no significant change since the prior study. BI/SCREENING MAMM (CAD), BILAT IMPRESSION: No mammographic signs of malignancy. Routine yearly mammograms recommended. ASSESSMENT CATEGORY: BIRADS Category 1: Negative. A letter regarding these results will be sent to the patient by the facility within 30 days. FOLLOW UP RECOMMENDATION: Yearly follow up mammogram recommended. (A) Approximately 10% of breast cancers are not detected by mammography. A normal mammogram should not delay biopsy of a clinically suspicious abnormality. Electronically Signed: Anil Diaz MD at 13:28 EDT ,
== END 2021-12-19 23:59 | disposition home or self-care (01) ==
LOC: CVS 10:51
PROVIDERS: PCP Internal Medicine; Referring Provider Internal Medicine; Visit Provider Internal Medicine
DX: I65.23 Occlusion and stenosis of bilateral carotid arteries (principal); Z12.31 Encounter for screening mammogram for malignant neoplasm of breast
CPT/HCPCS: 77067; 93880

== ENCOUNTER 2022-08-29 11:54 | Emergency (ER) | payer MEDICARE, OTHER, SELFPAY ==
[2022-08-29 11:55] VITALS: BP 138/48; PULSE 57; RESP 16; TEMP 36.1; O2SAT 99; BMI 26.6
--- NOTE | 2022-08-29 12:48 | RAD_ITS ---
EXAM: XR LEFT SHOULDER COMPLETE, 2 OR MORE VIEWS CLINICAL INDICATION: Injury/Pain TECHNIQUE: Two or more views of the left shoulder. This report was created using Pets[employer] report generation technology. COMPARISON: None. FINDINGS: BONES/JOINTS: Acute comminuted fracture of the proximal humerus noted extending through the anatomical neck region and also involving the base of the greater tubercle. No subluxation. SOFT TISSUES: Normal. No soft tissue swelling or gas. No radiopaque foreign body. RAD/Shoulder min 2 Views IMPRESSION: Acute comminuted fracture of the proximal humerus. Electronically Signed: Nithin Yo MD at 13:14 EST ,
--- NOTE | 2022-08-29 12:56 | EDS_ITS ---
HPI HPI - Fall History of Present Illness Chief Complaint: Fall Informant: patient Occured/Mechanism Occurred: Today Mechanism/Context: Yes trip Narrative: Patient presents after a fall that occurred today. Patient tripped over the dog leash and fell. Patient landed on her left shoulder. Patient states her pain is worse with palpation and movement of her left shoulder. Patient describes it as sharp, aching, and burning. Patient denies any paresthesias or weakness. Patient denies any head injury or loss of consciousness. Patient denies any other injuries. Usually ambulates: Without assistance Pain/Injury Location: Left shoulder Quality of Pain: Sharp, Aching and Burning Worsened by: Movement, palpation Relieved by: Nothing Associated Symptoms Associated Symptoms: Negative for Parasthesias, Weakness, Loss of function, Inability to ambulate, Loss of consciousness or Amnesia [facility] Medical History (Updated 08/29/22 @ 13:[address] Reinaldo Crowder, DO) Early onset Alzheimer's dementia Home Medications aspirin 81 mg tablet,delayed release (Adult Low Dose Aspirin) 81 mg PO DAILY 08/29/22 [History Last Taken Unknown] cholecalciferol (vitamin D3) 75 mcg (3,000 unit) tablet 75 mcg PO DAILY 08/29/22 [History Last Taken Unknown] donepezil 5 mg tablet 5 mg PO BID 08/29/22 [History Last Taken Unknown] hydrocodone-acetaminophen 5-325mg 5mg-325mg 1 tab PO Q6H PRN PRN Pain 3 days #10 TABLETS 08/29/22 [Rx Last Taken Unknown] ipratropium bromide 42 mcg (0.06 %) nasal spray 2 spray intranasal BID 08/29/22 [History Last Taken Unknown] losartan 50 mg tablet 50 mg PO BID 08/29/22 [History Last Taken Unknown] vlugffgi-vjm-ivjuf acid 0.4 mg-lycopene 300 mcg-lutein 250 mcg tablet (Centrum Silver) 1 tab PO DAILY 08/29/22 [History Last Taken Unknown] rivastigmine tartrate 1.5 mg capsule 1.5 mg PO BID 08/29/22 [History Last Taken Unknown] vitamin B complex 1 tab PO DAILY 08/29/22 [History Last Taken Unknown] Allergy/AdvReac Type Severity Reaction Status Date / Time No Known Allergies Allergy Verified 08/29/22 11:55 Surgical History no surgical history no surgical history Social History Smoking Status: Former smoker ROS ROS ED Constitutional Constitutional ED: Denies chills or fever(s) Eyes Eyes: Denies blurry vision or change in vision ENT ENT ED: Denies rhinorrhea or sore throat Cardiovascular Cardiovascular: Denies chest pain or palpitations Respiratory/Chest Respiratory/Chest: Denies cough or dyspnea Gastrointestinal Gastrointestinal: Denies nausea or vomiting Genitourinary Genitourinary ED: Denies dysuria or hematuria Musculoskeletal Musculoskeletal: Denies back pain or neck pain Integumentary Denies abscess or rash Neurologic Neurologic: Denies headache(s) or weakness Allergic/Immunologic Allergic/Immunologic ED: Denies mouth swelling or urticaria EXAM Physical Exam Const Vital Signs: 08/29/22 11:55 08/29/22 12:13 Temperature 97.0 F L Temperature Source Temporal Pulse Rate 57 L Respiratory Rate 16 Respiratory Effort Normal Non-Labored Respiratory Depth Normal Respiratory Pattern Normal Blood Pressure 138/48 H Blood Pressure Mean 78 Pulse Ox 99 Oxygen Delivery Method Room Air Room Air Positive well nourished and well developed General Appearance ED: well developed and NAD HEENT Reports normocephalic atraumatic Neck full ROM and supple Extremity Extremity Narrative: There is tenderness over the left shoulder. There is some edema. There is no obvious deformity. Range of motion was limited in all motions of the left shoulder secondary to pain. There is no tenderness over the clavicle. Radial pulses are equal bilaterally. Sensation was intact to light touch in all digits. Capillary refill was less than 2 seconds in all digits. Strength is 5/5 in the radial, medial, and ulnar areas. Neuro oriented x3, CN's II-XII intact bilaterally, moves all extremities, no focal motor deficits and no sensory deficits noted Sensorium / Orientation: alert Motor Exam: strength 5/5 throughout MDM MDM MDM Narrative Medical decision making narrative: X-rays of the left shoulder were obtained. There are 2 views. On my interpretation, there is a fracture of the proximal humerus. There is minimal displacement. Radiologist also interpreted the x-rays and agrees. Patient was placed in a sling and swath. Patient was given a prescription for a short course of [place]. Patient was instructed use ice to the area. Patient was instructed to follow-up with her primary care physician in 5 to 7 days. Patient understood and was agreeable with the plan. All questions were answered. Radiography Diagnostic Testing: Clinical Impression(s) from Imaging Studies Shoulder X-Ray 08/29/22 12:48 IMPRESSION: Acute comminuted fracture of the proximal humerus. Electronically Signed: Nithin Yo MD at 13:14 EST Reading Location ID and State: [address] [place] [address] Tel , Service support , Discharge Plan Triage Chief Complaint: Fall ED Provider: Reinaldo Crowder Dx/Rx/DC Orders Clinical Impression: Closed fracture of left proximal humerus, Fall Instructions: ED Fracture, Upper Extremity Prescriptions: New hydrocodone-acetaminophen [hydrocodone-acetaminophen] 1 TABLET tablet 1 tab PO Q6H PRN PRN (Reason: Pain) 3 Days Qty: 10 0RF No Action losartan 50 mg tablet 50 mg PO BID Label Comments: TAKE 1 TABLET BY MOUTH TWICE A DAY rivastigmine tartrate 1.5 mg capsule 1.5 mg PO BID Label Comments: TAKE 1 CAPSULE BY MOUTH TWICE A DAY donepezil 5 mg tablet 5 mg PO BID Label Comments: TAKE 1 TABLET BY MOUTH TWICE A DAY aspirin [Adult Low Dose Aspirin] 81 mg tablet,delayed release (DR/EC) 81 mg PO DAILY Label Comments: once a day vitamin B complex Tablet 1 tab PO DAILY Label Comments: once a day 500 mcg sublingual ipratropium bromide 42 mcg (0.06 %) spray,non-aerosol 2 spray INTRANASAL BID Label Comments: SPRAY 2 SPRAYS INTO EACH NOSTRIL TWICE A DAY Centrum Silver 0.4 mg-300 mcg- 250 mcg tablet 1 tab PO DAILY Label Comments: once a day cholecalciferol (vitamin D3) 75 mcg (3,000 unit) tablet 75 mcg PO DAILY Label Comments: once a day Primary Care Provider: Monse Silverman Referrals: Monse Silverman DO [Primary Care Provider] - 5-7 Days Disposition Disposition: Home, Self Care
[2022-08-29 13:39] VITALS: RESP 16
== END 2022-08-29 13:52 | disposition home or self-care (01) ==
PROVIDERS: Emergency Provider Emergency Medicine; PCP Internal Medicine; Visit Provider Emergency Medicine
DX: S42.202A Unspecified fracture of upper end of left humerus, initial encounter for closed fracture (principal); Z87.891 Personal history of nicotine dependence; Z79.82 Long term (current) use of aspirin; W01.0XXA Fall on same level from slipping, tripping and stumbling without subsequent striking against object, initial encounter
CPT/HCPCS: 73030; 99282

== ENCOUNTER → 2022-12-15 | Outpatient (CLI) | payer MEDICARE, OTHER, SELFPAY ==
--- NOTE | 2022-12-15 14:37 | BI_ITS ---
MAMMOGRAPHY - BILATERAL SCREENING 3-D TOMOSYNTHESIS REASON FOR EXAM: Female, 77 years old. Routine screening PERTINENT HISTORY: No significant family history. TECHNIQUE: 2-D mammograms and 3-D Tomosynthesis of the breast (s) were performed. CAD was performed. COMPARISON: 12/19/2021 FINDINGS: The breast composition is composed of scattered fibroglandular density. Scattered benign calcifications are seen. No dense spiculated masses or suspicious microcalcifications are identified. No architectural distortion is identified. There is no skin thickening or retraction. There has been no significant change since the prior study. BI/SCREENING MAMM (CAD), BILAT IMPRESSION: No mammographic signs of malignancy. Routine yearly mammograms recommended. ASSESSMENT CATEGORY: BIRADS Category 1: Negative. A letter regarding these results will be sent to the patient by the facility within 30 days. FOLLOW UP RECOMMENDATION: Yearly follow up mammogram recommended. (A) Approximately 10% of breast cancers are not detected by mammography. A normal mammogram should not delay biopsy of a clinically suspicious abnormality. Electronically Signed: Samuel Rothman MD at 8:14 EDT ,
== END | disposition home or self-care (01) ==
LOC: OPBI 14:34
PROVIDERS: PCP Internal Medicine; Referring Provider Internal Medicine; Visit Provider Internal Medicine
DX: Z12.31 Encounter for screening mammogram for malignant neoplasm of breast (principal)
CPT/HCPCS: 77067

== ENCOUNTER → 2023-01-11 | Outpatient (CLI) | payer MEDICARE, OTHER, SELFPAY ==
--- NOTE | 2023-01-11 10:21 | US_ITS ---
STUDY: ABDOMINAL ULTRASOUND - RIGHT UPPER QUADRANT REASON FOR VISIT: Female, 77 years old abnormal LFTs TECHNIQUE: Ultrasound evaluation of the right upper quadrant was performed with real-time and static marvin-scale imaging. TECHNICAL QUALITY: Adequate. COMPARISON: None. FINDINGS: Liver: The liver measures 13 cm. There is increased echogenicity consistent with fatty infiltration. The bile ducts are within normal limits. There is hepatic color flow. The direction of portal flow is hepatopetal. There is no demonstrated mass lesion. Gallbladder: Normal distended gallbladder. The gallbladder wall measures 2 mm. There is a negative sonographic Jennings''s sign. There is no pericholecystic fluid. There are no gallstones. Common Bile Duct (C.B.D.): The common bile duct measures 4 mm. Pancreas: Visualized pancreas is sonographically normal Right Kidney: Normal size of the right kidney. The right kidney measures 10.0 x 5.2 x 4.3 cm. Normal renal cortex. The right cortex measures 1.2 cm. There is no demonstrated renal mass or cyst. There is no right hydronephrosis. US/Liver IMPRESSION: Fatty liver, no discrete lesion Electronically Signed: Samuel Rothman MD at 11:37 EDT ,
--- NOTE | 2023-01-11 10:48 | CDU_ITS ---
Reason For Study: Stenosis Rt. Velocities/BP Lt. Velocities/BP Prox CCA 96.3/9.5 cm/sec. Prox CCA 119.8/19.4 cm/sec. Mid CCA 80.9/14.9 cm/sec. Mid CCA 81.5/19.4 cm/sec. Dist CCA 88.6/17.1 cm/sec. Dist CCA 96.1/15.7 cm/sec. Prox ICA 86.4/19.3 cm/sec. Prox ICA 76.3/16.8 cm/sec. Mid ICA 86.4/18.2 cm/sec. Mid ICA 92.4/21.2 cm/sec. Dist ICA 99.6/23.7 cm/sec. Dist ICA 98.2/21.6 cm/sec. Rt. ICA/CCA = 1.2. Lt. ICA/CCA = 1.2. Prox ECA 113.5/10.2 cm/sec. Prox ECA 114.9/8.1 cm/sec. Rt. Vert. 46.0/7.5 cm/sec. Lt. Vert. 43.1/4.0 cm/sec. Right Extracranial There is homogeneous, smooth atherosclerotic plaque noted in the right common carotid artery. There is heterogeneous, irregular atherosclerotic plaque noted in the right internal carotid artery. There is homogeneous, smooth atherosclerotic plaque noted in the right external carotid artery. Antegrade flow is noted in the right vertebral artery. Possible Pre-steal. Left Extracranial There is homogeneous, smooth atherosclerotic plaque noted in the left common carotid artery. There is heterogeneous, irregular atherosclerotic plaque noted in the left internal carotid artery. There is heterogeneous, irregular atherosclerotic plaque noted in the left external carotid artery. Antegrade flow is noted in the left vertebral artery. Procedure Carotid Duplex [id number]. This is a Carotid Duplex examination using B-mode, color flow and specral Doppler. The exam was diagnostic. Exam performed in department. VL/Carotid Duplex Ultrasound Interpretation Summary Mild (<50%) stenosis right extracranial internal carotid. Mild (<50%) stenosis left extracranial internal carotid. Patent and antegrade vertebrals bilaterally. Ordering Physician: Monse Silverman Referring Physician: Monse Silverman Performed By: Tab Person RVT
== END | disposition home or self-care (01) ==
PROVIDERS: PCP Internal Medicine; Referring Provider Internal Medicine; Visit Provider Internal Medicine
DX: K76.0 Fatty (change of) liver, not elsewhere classified (principal); I65.23 Occlusion and stenosis of bilateral carotid arteries; Z78.0 Asymptomatic menopausal state
CPT/HCPCS: 76705; 93880

== ENCOUNTER → 2023-01-13 | Outpatient (CLI) | payer MEDICARE, OTHER, SELFPAY ==
--- NOTE | 2023-01-13 08:58 | BD_ITS ---
STUDY: DUAL ENERGY X-RAY ABSORPTIOMETRY / DXA REASON FOR EXAM: Female, 77 years old. 627.8Menopausal postmenopausal BONE DENSITY REASON FOR EXAM TECHNIQUE: Bone Mineral Density (BMD) measurements of lumbar spine and bilateral hips were obtained. COMPARISON: Comparison is made with prior study dated December 18, 2020. FINDINGS: Lumbar Spine (L1-L4): g/cm2 (0.810) / T-score (-2.2) / Z-score (0.3) Findings are suggestive of osteopenia with a high fracture risk. Left Femur Total: g/cm2 (0.839) / T-score (-0.8) / Z-score (1.0) Left Femoral Neck: g/cm2 (0.786) / T-score (-0.6) / Z-score (1.6) Right Femur Total: g/cm2 (0.812) / T-score (-1.1) / Z-score (0.8) Right Femoral Neck: g/cm2 (0.751) / T-score (-0.9) / Z-score (1.3) The T-Scores on the most recent prior examination were: Lumbar Spine (L1-L4): There has been worsening of bone density since the previous examination. Left Femur Total: which represents a worsening of 3.1%. Right Femur Total: which represents a worsening of 5.6%. BD/Dexa Bone Density Study IMPRESSION: The patient is considered osteopenic as outlined below according to World Kev Organization (WHO) criteria with a high fracture risk. There has been worsening of bone density since the previous examination. Reference Information: The T-score is the number of standard deviations above or below the standard which is normal for young adults at their peak bone mineral density. The World Health Organization (WHO) interprets the T-scores as follows: Above -1 Normal bone density Between -1 and -2.5 Osteopenia Equal to / or below -2.5 Osteoporosis As a practical clinical guideline, osteopenia may be graded as follows: Mild -1 through -1.5 Moderate -1.6 through -2.0 Severe -2.1 through -2.4 The Z-score is the number of standard deviations above or below age-matched controls. A Z-score of less than -1.5 would be considered abnormal. References: 1. NIH Osteoporosis and Related Bone Diseases www osteo.org 2. International Society for Clinical Densitometry www iscd.org 3. National Osteoporosis Foundation www nof.org Electronically Signed: Kevin Pugh MD at 10:19 EDT ,
== END | disposition home or self-care (01) ==
LOC: OPBD 08:48
PROVIDERS: PCP Internal Medicine; Referring Provider Internal Medicine; Visit Provider Internal Medicine
DX: Z13.820 Encounter for screening for osteoporosis (principal); Z78.0 Asymptomatic menopausal state
CPT/HCPCS: 77080

== ENCOUNTER → 2023-12-17 | Outpatient (CLI) | payer BC, OTHER, SELFPAY ==
--- NOTE | 2023-12-17 10:46 | BI_ITS ---
MAMMOGRAPHY - BILATERAL SCREENING REASON FOR EXAM: Female, 78 years old. Routine annual screening examination. PERTINENT HISTORY: Daughter with breast cancer. Grandmother with breast cancer. TECHNIQUE: Digital bilateral breast deidra (3D mammographic acquisition) in the CC and MLO projections. 2-D mediolateral oblique (MLO) and craniocaudad (CC) views of both breasts were obtained. CAD: Full Field Digital Mammography with Computer Added Detection was performed. COMPARISON: Comparison is made with prior study of December 15, 2022 and December 19, 2021. FINDINGS: Breast Composition: There are scattered areas of fibroglandular density. There are no dominant masses or suspicious calcifications. Stable benign-appearing bilateral axillary lymph nodes. No other significant abnormalities are identified. There has been no significant change since the prior study. BI/SCRN MAMM (CAD)W/DEIDRA BILAT IMPRESSION: Stable bilateral screening mammogram. Yearly follow-up mammogram recommended. (A) ASSESSMENT CATEGORY: BIRADS Category 2: Benign. A letter regarding these results will be sent to the patient by the facility within 30 days. Approximately 10% of breast cancers are not detected by mammography. A normal mammogram should not delay biopsy of a clinically suspicious abnormality. [id number] Electronically Signed: Kevin Pugh MD at 11:57 EDT ,
== END | disposition home or self-care (01) ==
LOC: OPBI 10:44
PROVIDERS: PCP Internal Medicine; Referring Provider Internal Medicine; Visit Provider Internal Medicine
DX: Z12.31 Encounter for screening mammogram for malignant neoplasm of breast (principal); Z80.3 Family history of malignant neoplasm of breast
CPT/HCPCS: 77063; 77067

== ENCOUNTER → 2024-04-05 | Outpatient (CLI) | payer MEDICARE, OTHER, SELFPAY ==
--- NOTE | 2024-04-05 09:27 | CDU_ITS ---
Reason For Study: STENOSIS Rt. Velocities/BP Lt. Velocities/BP Prox CCA 83.9/11.3 cm/sec. Prox CCA 93.0/19.9 cm/sec. Mid CCA 97.1/20.1 cm/sec. Mid CCA 82.0/18.1 cm/sec. Dist CCA 81.7/17.9 cm/sec. Dist CCA 89.3/29.0 cm/sec. Prox ICA 97.9/21.2 cm/sec. Prox ICA 111.7/26.1 cm/sec. Mid ICA 72.0/22.8 cm/sec. Mid ICA 122.7/26.1 cm/sec. Dist ICA 108.9/32.1 cm/sec. Dist ICA 102.3/25.5 cm/sec. Rt. ICA/CCA = 1.12. Lt. ICA/CCA = 1.50. Prox ECA 136.3/4.7 cm/sec. Prox ECA 114.9/3.5 cm/sec. Rt. Vert. 60.1/8.9 cm/sec. Lt. Vert. 35.3/5.4 cm/sec. Right Extracranial There is homogeneous, smooth atherosclerotic plaque noted in the right common carotid artery. There is heterogeneous, irregular atherosclerotic plaque noted in the right internal carotid artery. There is intimal thickening but no significant atherosclerotic plaque noted in the right external carotid artery. Antegrade flow is noted in the right vertebral artery. Left Extracranial There is intimal thickening but no significant atherosclerotic plaque noted in the left common carotid artery. There is heterogeneous, irregular atherosclerotic plaque noted in the left internal carotid artery. There is intimal thickening but no significant atherosclerotic plaque noted in the left external carotid artery. Antegrade flow is noted in the left vertebral artery. Procedure Carotid Duplex [id number]. This is a Carotid Duplex examination using B-mode, color flow and specral Doppler. Exam performed in department. VL/Carotid Duplex Ultrasound Interpretation Summary Mild (<50%) stenosis right extracranial internal carotid. Mild (<50%) stenosis left extracranial internal carotid. Patent and antegrade vertebrals bilaterally. Ordering Physician: Monse Silverman Referring Physician: Monse Silverman Performed By: Sophia Rincon RVT and Student
--- NOTE | 2024-04-05 09:27 | US_ITS ---
STUDY: ABDOMINAL ULTRASOUND - RIGHT UPPER QUADRANT REASON FOR VISIT: Female, 78 years old fatty liver TECHNIQUE: Ultrasound evaluation of the right upper quadrant was performed with real-time and static marvin-scale imaging. TECHNICAL QUALITY: Adequate. COMPARISON: 01/11/2023 FINDINGS: Liver: The liver measures 13.0 cm. There is increased echogenicity consistent with fatty infiltration. The bile ducts are within normal limits. There is hepatic color flow. The direction of portal flow is hepatopetal. 1 cm cyst in the right lobe of the liver. Gallbladder: Normal distended gallbladder. The gallbladder wall measures 2 mm. There is a negative sonographic Jennings''s sign. There is no pericholecystic fluid. There are no gallstones. Common Bile Duct (C.B.D.): The common bile duct measures 3 mm. Pancreas: Normal size of the head, body and tail of the pancreas. There is normal echogenicity of the pancreas. There is no demonstrated pancreatic mass or cyst. Right Kidney: Normal size of the right kidney. The right kidney measures 9.4 cm. Normal renal cortex. The right cortex measures 1.1 cm. There is no demonstrated renal mass or cyst. There is no right hydronephrosis. US/Abdomen Limited IMPRESSION: Fatty infiltration of the liver. Electronically Signed: Anil Diaz MD at 16:05 EDT ,
== END | disposition home or self-care (01) ==
PROVIDERS: PCP Internal Medicine; Referring Provider Internal Medicine; Visit Provider Internal Medicine
DX: I65.23 Occlusion and stenosis of bilateral carotid arteries (principal)
CPT/HCPCS: 76705; 93880

== ENCOUNTER → 2025-01-23 | Outpatient (CLI) | payer MEDICARE, SELFPAY ==
--- NOTE | 2025-01-23 12:19 | BI_ITS ---
EXAM: SCRN MAMM (CAD)W/DEIDRA BILAT DATE: 01/23/2025 CLINICAL HISTORY: F, Age 79 y/o , SCREENING Daughter with breast cancer. Grandmother with breast cancer. BREAST CANCER RISK ASSESSMENT: Not assessed. TECHNIQUE: Bilateral screening digital breast tomosynthesis with 2D and 3D images. Computer aided detection. COMPARISON: Prior exam(s) dated December 17, 2023.. FINDINGS: TISSUE DENSITY: The breast tissue is composed of scattered area of fibroglandular density. Bilateral Breast Mammographic Findings: No significant masses, calcifications or other abnormalities are identified. Stable benign-appearing bilateral axillary lymph nodes. No suspicious masses, areas of developing architectural distortion, or suspicious calcifications. There has been no significant interval change. BI/SCRN MAMM (CAD)W/DEIDRA BILAT IMPRESSION: OVERALL FINAL ASSESSMENT: BIRADS 1 NEGATIVE RECOMMENDATION: Routine annual follow-up in 1 Year A letter with findings and recommendations will be mailed to the patient. Reading Location: [place] [id number]
--- NOTE | 2025-01-23 12:22 | BD_ITS ---
PROCEDURE: DEXA BONE DENSITY STUDY 01/23/2025 REASON FOR EXAM: F, age 79 y/o . Postmenopausal. TECHNIQUE: DXA scan of the lumbar spine and both hips using make and model. REFERENCE LINKS: ISCD Adult Positions COMPARISON: Comparison is made with prior study dated January 13, 2023. FINDINGS: BMD and T-SCORES Lumbar spine: 0.867 g/cm2, T-Score -1.6 L1 through L4 Change from prior: Improvement by 7.1% Left femoral neck: 0.798 g/cm2, T-Score -0.5 Femoral neck comparison data not recommended for monitoring change. Left total hip: 0.874 g/cm2, T-Score -0.6 Change from prior: Improvement by 4.1% Right femoral neck: 0.833 g/cm2, T-Score -0.1 Femoral neck comparison data not recommended for monitoring change. Right total hip: 0.890 g/cm2, T-Score -0.4 Change from prior: Improvement by 9.6% Fracture Risk Calculation: FRAX (10-year Fracture Risk) Score: FRAX scores should never be reported in a patient with osteoporosis on DEXA or for any patient that is on bone medication. The patient doesmeet the pharmacological treatment recommendations for prevention of osteoporosis BD/Dexa Bone Density Study IMPRESSION: OSTEOPENIA. Recommend follow-up as clinically warranted. Reading Location: [place] [id number]
== END | disposition home or self-care (01) ==
LOC: OPBD 12:15
PROVIDERS: PCP Internal Medicine; Referring Provider Internal Medicine; Visit Provider Internal Medicine
DX: Z12.31 Encounter for screening mammogram for malignant neoplasm of breast (principal); Z78.0 Asymptomatic menopausal state
CPT/HCPCS: 77063; 77067; 77080

== ENCOUNTER → 2025-03-27 | Outpatient (CLI) | payer MEDICARE, SELFPAY ==
--- NOTE | 2025-03-27 08:55 | CDU_ITS ---
Reason For Study Reason For Study: CAROTID STENOSIS Rt. Velocities/BP Lt. Velocities/BP Prox CCA 71.1/*13.5 cm/sec. Prox CCA 136.3/21.2 cm/sec. Mid CCA 84.4/13.5 cm/sec. Mid CCA 116.2/17.5 cm/sec. Dist CCA 76.1/11.0 cm/sec. Dist CCA 108.9/19.4 cm/sec. Prox ICA 83.8/18.1 cm/sec. Prox ICA 108.9/13.9 cm/sec. Mid ICA 76.5/16.3 cm/sec. Mid ICA 130.8/24.8 cm/sec. Dist ICA 82.0/21.7 cm/sec. Dist ICA 139.9/24.8 cm/sec. Rt. ICA/CCA = 83.8/84.4=1.0. Lt. ICA/CCA = 139.9/116.2=1.2. Prox ECA 96.3/8.4 cm/sec. Prox ECA 143.6/6.6 cm/sec. Rt. Vert. 64.7/7.6 cm/sec. Lt. Vert. 60.9/10.6 cm/sec. Right Extracranial There is homogeneous, smooth atherosclerotic plaque noted in the right common carotid artery. There is heterogeneous, irregular atherosclerotic plaque noted in the right internal carotid artery. There is homogeneous, smooth atherosclerotic plaque noted in the right external carotid artery. Antegrade flow is noted in the right vertebral artery. Left Extracranial There is homogeneous, smooth atherosclerotic plaque noted in the left common carotid artery. There is heterogeneous, irregular atherosclerotic plaque noted in the left internal carotid artery. There is homogeneous, smooth atherosclerotic plaque noted in the left external carotid artery. Antegrade flow is noted in the left vertebral artery. Procedure Carotid Duplex 20336. This is a Carotid Duplex examination using B-mode, color flow and specral Doppler. Exam performed in department. VL/Carotid Duplex Ultrasound Interpretation Summary Mild (<50%) stenosis right extracranial internal carotid. Moderate (50-69%) stenosis left extracranial internal carotid. Patent and antegrade vertebrals bilaterally. Ordering Physician: Monse Silverman Referring Physician: Monse Silverman Performed By: Chelsey Stanley, KIERAN, RVT
--- NOTE | 2025-03-27 08:55 | US_ITS ---
PROCEDURE: ABD LIMITED W/ ELASTOGRAPHY REASON FOR EXAM: ABD. US LIMITE DW/ ELASTOGRAPHY - FATTY LIVER COMPARISON: None. TECHNIQUE: Right upper quadrant abdominal ultrasound. [employer] ElastQ Imaging shear wave elastography for non-invasive assessment of liver tissue stiffness. Marianela EPIQ Elite. FINDINGS: LIVER: Size: Unremarkable Length: 13.3 cm Echotexture: Diffusely echogenic suggesting fatty infiltration Contour: Normal Lesions: None identified Elastography: EQI Med: 10.6 kPa EQI Med Michele: 1.9 m/s IQR/Med: 22 %* GALLBLADDER: No stones sludge wall thickening or tenderness. COMMON BILE DUCT: Normal measuring 3.4 mm. PANCREAS: Normal Visualized portions of the right kidney are unremarkable. No right upper quadrant ascites. US/ABD Limited w/ Elastography IMPRESSION: MODERATE TO SEVERE HEPATIC FIBROSIS Fatty infiltration of the liver. Reference Values: SRU <1.37 m/s (5.7kPa): No to mild fibrosis 1.37 m/s - 2.2 m/s: Moderate to severe fibrosis >2.2 m/s (15kPa): Significant fibrosis / cirrhosis METAVIR Score F2 or higher: 1.34 m/s (5.7kPa) F3 or higher: 1.55 m/s (7.3kPa) F4: 1.80 m/s (10kPa) * If the IQR/Med is >30%, the variance in the measurements is a large and the a ccuracy of the measurement may be in question. Reading Location: [place]
== END | disposition home or self-care (01) ==
PROVIDERS: PCP Internal Medicine; Referring Provider Internal Medicine; Visit Provider Internal Medicine
DX: K76.0 Fatty (change of) liver, not elsewhere classified (principal); I65.23 Occlusion and stenosis of bilateral carotid arteries
CPT/HCPCS: 76705; 76981; 93880

== ENCOUNTER → 2025-06-05 | Outpatient (CLI) | payer MEDICARE, SELFPAY ==
[2025-06-05 12:41] LABS: Hematocrit 39.1 % (37-47); Hemoglobin 13.0 g/dL (12.0-15.0); Immature Granulocytes Count 0.010 X10^3/uL (0.0-0.0); Mean Corp Hgb Conc 33.2 g/dL (32-36); Mean Corpuscular Volume 93.5 fL (81-99); Mean Platelet Vol. 10.4 fl (6.2-12.0); NRBC Flagged by Analyzer 0 % (0-5); Platelet Count 201 K/mm3 (150-450); RBC Distribution Width CV 12.3 % (11.6-14.6); RBC Distribution Width SD 42.5 fl (35.1-43.9); Red Blood Count 4.18 M/mm3 (4.2-5.4); White Blood Count 5.0 K/mm3 (4.4-11.0)
[2025-06-05 13:04] LABS: Creatinine, Urine (random) 178.00 mg/dL (28.00-217.00); Microalbumin,Random Urine < 12.0 mg/L (<20 mg/L)
[2025-06-05 13:13] LABS: AST(SGOT) 28 U/L (<=31); Alanine Aminotransfer ALT/SGPT 20 U/L (<=34); Albumin, Serum 4.4 g/dL (3.4-4.8); Alkaline Phosphatase 50 U/L (35-104); Anion Gap 11 (5-15); BUN 21 mg/dL (4-19); BUN/Creat Ratio 19.9 RATIO (10-20); Calcium,Total 10.1 mg/dL (7.6-11.0); Carbon Dioxide 25.3 mmol/L (21.0-32.0); Chloride 104 mmol/L (98-108); Cholesterol 139 mg/dL (<=200); Globulin 3.3 g/dL (2.2-4.2); Glucose 91 mg/dL (70-99); Low Density Lipoprotein Calc. 58 mg/dL; Potassium 4.3 mmol/L (3.3-5.1); Triglycerides 137 mg/dL; Very Low Density Lipoprotein 27 mg/dL (5-40); cholesterol:hdl ratio screen 2.61
== END | disposition home or self-care (01) ==
LOC: MTLAB 10:06
PROVIDERS: PCP Internal Medicine; Referring Provider Internal Medicine; Visit Provider Internal Medicine
DX: I10 Essential (primary) hypertension (principal); E78.2 Mixed hyperlipidemia; R73.01 Impaired fasting glucose
CPT/HCPCS: 36415; 80053; 80061; 82043; 82570; 83036; 85025

== ENCOUNTER 2025-06-19 14:30 | Outpatient (RCR) | payer MEDICARE, SELFPAY ==
--- NOTE | 2025-03-30 15:44 | HP.OTEVAL ---
Patient's Visit Information Visit Information Visit Information: MIKE CHAVEZ is a 79 year old F, referred to Occupational Therapy by Dr. Asa Cotto MD, with a diagnosis of L de Quervain's tenosynovitis. Date of Evaluation: 03/29/25 Occupational Therapist: Kaleigh Lees Subjective Subjective: Pt is a 79 y/o female who arrives with her to this occupational therapy evaluation due to complaints of pain in L wrist and hand. Pt saw Dr. Asa Cotto as a 2nd opinion, who diagnosed pt with de Quervain's tenosynovitis as well as CMC arthritis. Pt had a recent fall about 6 weeks ago and landed on palmar aspect of L hand. Pt has utilized wrist brace for pain and immobilization but reports it does not do what she would like. Pt present to this occupational therapy evaluation for custom hand based thumb spica and follow up as needed. ADLs Comments: Pt is R handed and does not note any difficulty with regular ADLs. Pt reports difficulty with carrying heavy items such as pots/cast iron and other bilateral hand tasks. Pain L Thumb: Current Pain Intensity: 4 Pain Intensity Range: 0, 1, 2, 3, 4, 5, 6 and 7 Objective Objective/Observation: Pt arrives with low pain in 3-4 range due to de Quervain's tenosynovitis and CMC arthritis. ROM ROM Comments: R and L WNL, and not limited by pain Strength Superintendent Renting Managing: R:60# L:58# Lateral Pinch: R:14# L:16# Tripod Pinch: R:14# L:14# Tip-to-Tip Pinch: R: 6# L:10# DASH-Disabilities of Arm, Shoulder& Hand DASH Sum: 3 Quick DASH-Disab of Arm,Shoulder& Hand Quick DASH Score: 15.9075 Goals Goal:: Pt will report no more than 2/10 pain with functional tasks to regain full independence with ADL/IADL tasks. Goal:: Pt will demo good carryover/compliance with orthotic wearing schedule for improved/decreased pain with daily tasks. Rehabilitation General Assessment: Pt presents with pain to L radial sided wrist pain, moving up to forearm as well as dorsum of the thumb. Pt fitted with custom hand based thumb spica to be worn for immobilization of thumb to reduce pain and inflammation. Presents with low grade pain to L wrist and dorsum of thumb. Would benefit from outpatient occupational therapy for pain management and orthotic adjustments as needed. Rehabilitation Potential: Good Anticipated Interventions Anticipated Interventions: A/AAROM/PROM, Strengthening, Massage, Modalities, Education re Diagnosis and Home Program Visit Plan Frequency: 1x/Week Duration: 6 Weeks General Plan: Pt was seen due to recent fall and diagnosis of De Quervain's tenosynovitis, referred by Dr. Cotto for custom splinting and treatment as needed. Pt provided fabricated hand based thumb spica for immobilization to improve pain and inflammation. Pt would benefit from continued outpatient occupational therapy for 1x/wk for 4-6 for pain management, ROM, stretching, strengthening and orthotic adjustments as necessary. TEXT: Thank you for the opportunity to evaluate your patient. For Medicare and Medicare HMO plans, please review the plan of care and approve it. It will need to be FAXED BACK to us at [phone] for Medicare purposes. Please let me know if there are questions or concerns regarding this plan of care. Physician Signature: Date:
--- NOTE | 2025-06-19 14:56 | HP.OTREVAL ---
Re-Evaluation Intro: Dr. Asa Cotto MD, It has been my pleasure to treat MIKE CHAVEZ over the last 5 visits for L de Quervain's tenosynovitis. Please see the progress note below for an update on the occupational therapy plan of care! Subjective Subjective: pt arrives to session with spouse with wrist brace on. pt and spouse agree to reach out to Objective Objective/Function: pt has made gains with conservative tx of tendonitis but has plateaued with making gains at this time. and therapy is rec'd pt to return to . pt reports a click with left thumb movement- left licensed aircraft maintenance engineer strength 50# right licensed aircraft maintenance engineer 65# left lateral pinch 10# right 10# left tripod pinch 10# right 10# pt is is thumb spica brace with wrist included at night and still throughout the day. ( feels about 70% or more) Therapy yaritza. custom hand-based thumb spica but this was not comfortable for pt- we went to soft long thumb spica. therapist has ed. pt and pts spouse on joint protection patel. and wrist /thumb ergo to prevent tendon stress with lift/carry or picking up objects. pt needs re-enforcement do to her Alzheimer's dementia dx. Plan Plan Plan: return to for possible injection Early onset Alzheimer's dementia pt will need handouts to review Goals Goals Patient Goals: Regain Mobility, Decrease Pain and Use Hand/Wrist/Arm Normally Again Goal:: Pt will report no more than 2/10 pain with functional tasks to regain full independence with ADL/IADL tasks. Goal:: Pt will demo good carryover/compliance with orthotic wearing schedule for improved/decreased pain with daily tasks. Anticipated Interventions Anticipated Interventions Anticipated Interventions: A/AAROM/PROM, Strengthening, Massage, Modalities, Education re Diagnosis and Home Program Re-Evaluation Ending Re-evaluation ending: Please do not hesitate to contact me at [phone] by phone or if you have questions or concerns regarding this new plan of care! Sincerely, Breana Degroot, OTR/L, CHT
== END 2025-06-19 19:00 | disposition home or self-care (01) ==
LOC: OT 14:30
PROVIDERS: PCP Internal Medicine; Referring Provider Orthopaedic Surgery Sports Medicine; Visit Provider Orthopaedic Surgery Sports Medicine
DX: M65.4 Radial styloid tenosynovitis [de Quervain] (principal)
CPT/HCPCS: 97166; 97530; 97760

== ENCOUNTER → 2025-07-24 | Outpatient (CLI) | payer MEDICARE, SELFPAY ==
--- NOTE | 2025-07-24 11:24 | US_ITS ---
PROCEDURE: OTHER UNLISTED US PROCEDURE 07/24/2025 REASON FOR EXAM: Palpable subcutaneous mass TECHNIQUE: Procedure Code: USOTH SOFT Modality: US Procedure: OTHER UNLISTED US PROCEDURE COMPARISON: None FINDINGS: Sonographic evaluation of the dorsum of the left wrist at the site of the palpable abnormality shows a isoechoic 2.2 x 1.1 x 0.6 cm subcutaneous nodule. There is no evidence of subcutaneous fluid collection fistula or hyperemia. This may be posttraumatic or postinflammatory. US/Other Unlisted US Procedure IMPRESSION: Palpable lump corresponds to a benign-appearing subcutaneous nodule, likely seq uela from previous trauma or inflammation Reading Location: [id number]
== END | disposition home or self-care (01) ==
LOC: US 11:18
PROVIDERS: PCP Internal Medicine; Referring Provider Surgery Plastic and Reconstructive Surgery; Visit Provider Surgery Plastic and Reconstructive Surgery
DX: R22.30 Localized swelling, mass and lump, unspecified upper limb (principal); M65.4 Radial styloid tenosynovitis [de Quervain]
CPT/HCPCS: 76999

== ENCOUNTER → 2025-09-12 | Outpatient (CLI) | payer MEDICARE, SELFPAY ==
[2025-09-12 12:25] LABS: Hematocrit 39.3 % (37-47); Hemoglobin 13.2 g/dL (12.0-15.0); Immature Granulocytes Count 0.010 X10^3/uL (0.0-0.0); Mean Corp Hgb Conc 33.6 g/dL (32-36); Mean Corpuscular Volume 92.3 fL (81-99); Mean Platelet Vol. 9.9 fl (6.2-12.0); NRBC Flagged by Analyzer 0 % (0-5); Platelet Count 222 K/mm3 (150-450); RBC Distribution Width CV 12.3 % (11.6-14.6); RBC Distribution Width SD 42.1 fl (35.1-43.9); Red Blood Count 4.26 M/mm3 (4.2-5.4); White Blood Count 5.6 K/mm3 (4.4-11.0)
[2025-09-12 13:23] LABS: AST(SGOT) 28 U/L (<=31); Alanine Aminotransfer ALT/SGPT 19 U/L (<=34); Albumin, Serum 4.3 g/dL (3.4-4.8); Alkaline Phosphatase 54 U/L (35-104); Anion Gap 11 (5-15); BUN 17 mg/dL (4-19); BUN/Creat Ratio 13.9 RATIO (10-20); Calcium,Total 9.9 mg/dL (7.6-11.0); Carbon Dioxide 24.7 mmol/L (21.0-32.0); Chloride 103 mmol/L (98-108); Cholesterol 156 mg/dL (<=200); Globulin 3.3 g/dL (2.2-4.2); Glucose 91 mg/dL (70-99); Low Density Lipoprotein Calc. 75 mg/dL; Potassium 4.4 mmol/L (3.3-5.1); Triglycerides 178 mg/dL; Very Low Density Lipoprotein 36 mg/dL (5-40); Vitamin B12 751 pg/mL (180-914); Vitamin D,25 Hydroxy 58.4 ng/mL (30-100); cholesterol:hdl ratio screen 3.03
== END | disposition home or self-care (01) ==
LOC: MTLAB 09:42
PROVIDERS: PCP Internal Medicine; Referring Provider Internal Medicine; Visit Provider Internal Medicine
DX: E78.2 Mixed hyperlipidemia (principal); E53.8 Deficiency of other specified B group vitamins; E55.9 Vitamin D deficiency, unspecified; R73.01 Impaired fasting glucose
CPT/HCPCS: 36415; 80053; 80061; 82043; 82306; 82570; 82607; 83036; 85025

== ENCOUNTER → 2025-09-13 | Outpatient (CLI) | payer MEDICARE, SELFPAY ==
[2025-09-13 11:18] LABS: Creatinine, Urine (random) 185.00 mg/dL (28.00-217.00); Microalbumin,Random Urine < 12.0 mg/L (<20 mg/L)
== END | disposition home or self-care (01) ==
LOC: LABSPEC 06:58
PROVIDERS: PCP Internal Medicine; Referring Provider Internal Medicine; Visit Provider Internal Medicine
DX: R73.01 Impaired fasting glucose (principal)
CPT/HCPCS: 82043; 82570